=== PATIENT | female | born 1995 | race Caucasian/White ===

== ENCOUNTER 2025-10-02 05:44 | Inpatient (IN) | payer BC, SELFPAY ==
[2025-10-02] VITALS (62 sets, daily range): BP systolic 75–141; BP diastolic 38–91; PULSE 56–188; RESP 16–18; TEMP 36.3–37.1; O2SAT 95–100; BMI 31.8
--- OUTSIDE RECORDS SUMMARY | 2025-10-02 05:56 | XMS_ITS | Continuity of Care Document ---
Author Organization [facility] [place] Address [address] [place] [address] Assessment No assessment recorded. Plan of Treatment Reminders Order Date Submit Date Provider Last Modified By Organization Details Last Modified Time Details Appointments OB ROUTINE 2024 08:45A Regina VAUGHN MD Not available Not available Not available Lab None recorded . Referral None recorded . Procedures None recorded . Surgeries None recorded . Imaging None recorded . Medication Orders None recorded . Patient TargetsNo targets recorded. Patient InstructionsNo instructions recorded. Reason for Referral None Reported. Results Created Date Observation Date Name Description Value Unit Range Abnormal Flag Note LastModifiedBy Organization Detail LastModifiedTime 04/04/20 25 04/04/2025 [UNIT Y] ANEUP LOIDY NIPT fraction 10.6% normal Not Available [facility] [address], [place], [address], 04/04/2025 15:29:25 04/04/20 25 04/04/2025 [UNIT Y] ANEUP LOIDY NIPT 22Q11.2 microdeletio n LOW RISK <1 in 10,000 normal Not Available [facility] [address], [place], [address], 04/04/2025 15:29:25 04/04/20 25 04/04/2025 [UNIT Y] ANEUP LOIDY NIPT sex chromosome aneuploidy NOT DETECT ED normal Not Available [facility] [address], [place], [address], 04/04/2025 15:29:25 04/04/20 25 04/04/2025 [UNIT Y] ANEUP LOIDY NIPT monosomy X LOW RISK <1 in 10,000 normal Not Available [facility] [address], [place], [address], 04/04/2025 15:29:25 04/04/20 25 04/04/2025 [UNIT Y] ANEUP LOIDY NIPT trisomy 13 LOW RISK <1 in 10,000 normal Not Available [facility] [address], [place], [address], 04/04/2025 15:29:25 04/04/20 25 04/04/2025 [UNIT Y] ANEUP LOIDY NIPT trisomy 18 LOW RISK <1 in 10,000 normal Not Available [facility] [address], [place], [address], 04/04/2025 15:29:25 04/04/20 25 04/04/2025 [UNIT Y] ANEUP LOIDY NIPT trisomy 21 LOW RISK <1 in 10,000 normal Not Available [facility] [address], [place], [address], 04/04/2025 15:29:25 04/04/20 25 04/04/2025 [UNIT Y] ANEUP LOIDY NIPT sex MALE normal Not Available [facility] [address], [place], [address], 04/04/2025 15:29:25 04/04/20 25 04/04/2025 [UNIT Y] ANEUP LOIDY NIPT gestation SINGLE TON normal Not Available [facility] [address], [place], [address], 04/04/2025 15:29:25 04/04/20 25 04/04/2025 [UNIT Y] ANEUP LOIDY NIPT for detailed report, see pdf See PDF normal Not Available [facility] [address], [place], [address], 04/04/2025 15:29:25 04/11/20 25 04/11/2025 [UNIT Y] THOMAS WHITTINGTON Kathrine sickle cell disease/beta -thalassemia /hemoglobino pathies carrier screen NEGATI VE normal Not Available [facility] [address], [place], [address], 04/11/2025 12:08:11 04/11/20 25 04/11/2025 [UNIT Y] THOMAS WHITTINGTON Kathrine alpha-thalas semia carrier screen NEGATI VE normal Not Available [facility] [address], [place], [address], 04/11/2025 12:08:11 04/11/20 25 04/11/2025 [UNIT Y] THOMAS HWITTINGTON Kathrine cystic fibrosis carrier screen NEGATI VE normal Not Available [facility] [address], [place], [address], 04/11/2025 12:08:11 04/11/20 25 04/11/2025 [UNIT Y] THOMAS WHITTINGTON Kathrine spinal muscular atrophy carrier screen NEGATI VE 2 SMN1 copies , SNP not presen t normal Not Available [facility] [address], [place], [address], 04/11/2025 12:08:11 04/11/20 25 04/11/2025 [UNIT Y] THOMAS WHITTINGTON Kathrine for detailed report, see pdf See PDF normal Not Available [facility] [address], [place], [address], 04/11/2025 12:08:11 03/30/20 25 03/30/2025 CULTU RE: URINE result report SEE RESULT S BELOW Test: Cultu re: Urine Speci men Sourc e: Urine Voide d Speci men Type: Urine Speci men Date: 2024 1419 Resul t Date: 2024 2343 Resul t Statu s: Final resul t Abnor mal: No Resul ting Lab: [facility] [address] [facility] [address] Tel: CULTU RE ----- ----- ----- --- Organ ism(s ) consi stent with uroge nital or skin deja . Repea t cultu re if sympt oms indic ate. Not Available [facility] (Lab) [address] [facility], [place], [address], 04/01/2025 00:46:12 03/30/20 25 03/30/2025 CBC W/DIF F WBC 8.0 10'3/ uL 3.5-10 .5 Not Available [facility] (Lab) [address] [facility], [place], [address], 04/02/2025 16:43:21 03/30/20 25 03/30/2025 CBC W/DIF F RBC 4.19 10'6/ uL (based on docume nted legal sex) 3.80-5 .20 Not Available [facility] (Lab) [address] [facility], [place], [address], 04/02/2025 16:43:21 03/30/20 25 03/30/2025 CBC W/DIF F HGB 13.3 g/dL (based on docume nted legal sex) 11.6-1 5.4 Not Available [facility] (Lab) [address] [place], [address], 04/02/2025 16:43:21 03/30/20 25 03/30/2025 CBC W/DIF F HCT 39.6 % (based on docume nted legal sex) 34.0-4 5.0 Not Available [facility] (Lab) [address] [place], [address], 04/02/2025 16:43:21 03/30/20 25 03/30/2025 CBC W/DIF F MCV 94.5 fL 80.0-9 9.0 Not Available [facility] (Lab) [address] [place], [address], 04/02/2025 16:43:21 03/30/20 25 03/30/2025 CBC W/DIF F MCH 31.7 pg 27.0-3 4.0 Not Available [facility] (Lab) [address] [facility], [place], [address], 04/02/2025 16:43:21 03/30/20 25 03/30/2025 CBC W/DIF F MCHC 33.6 g/dL 32.0-3 5.5 Not Available [facility] (Lab) [address] [facility], [place], [address], 04/02/2025 16:43:21 03/30/20 25 03/30/2025 CBC W/DIF F RDW 12.7 % 11.0-1 5.0 Not Available [facility] (Lab) [address] [facility], [place], [address], 04/02/2025 16:43:21 03/30/20 25 03/30/2025 CBC W/DIF F plt 307 10'3/ uL 150-40 0 Not Available [facility] (Lab) [address] [facility], [place], [address], 04/02/2025 16:43:21 03/30/20 25 03/30/2025 CBC W/DIF F MPV 10.2 fL 8.8-12 .1 Not Available [facility] (Lab) [address] [facility], [place], [address], 04/02/2025 16:43:21 03/30/20 25 03/30/2025 CBC W/DIF F NRBC's 0.0 % 0.0 Not Available [facility] (Lab) [address] [facility], [place], [address], 04/02/2025 16:43:21 03/30/20 25 03/30/2025 CBC W/DIF F absolute NRBCs 0.0 10'3/ uL no refere nce range establ ished Not Available [facility] (Lab) [address] [facility], [place], [address], 04/02/2025 16:43:21 03/30/20 25 03/30/2025 CBC W/DIF F neutrophils 73.0 % 34.0-7 3.0 Not Available [facility] (Lab) [address] [facility], [place], [address], 04/02/2025 16:43:21 03/30/20 25 03/30/2025 CBC W/DIF F lymphocytes 20.3 % 15.0-5 0.0 Not Available [facility] (Lab) [address] [facility], [place], [address], 04/02/2025 16:43:21 03/30/20 25 03/30/2025 CBC W/DIF F monocytes 5.5 % 1.0-15 .0 Not Available [facility] (Lab) [address] [facility], [place], [address], 04/02/2025 16:43:21 03/30/20 25 03/30/2025 CBC W/DIF F eosinophils 0.6 % 0.0-8. 0 Not Available [facility] (Lab) [address] [place], [address], 04/02/2025 16:43:21 03/30/20 25 03/30/2025 CBC W/DIF F basophils 0.3 % 0.0-2. 0 Not Available [facility] (Lab) [address] [facility], [place], [address], 04/02/2025 16:43:21 03/30/20 25 03/30/2025 CBC W/DIF F immature granulocytes 0.3 % no define d refere nce range Immat ure Granu locyt es (IG) repre sents autom ated enume ratio n of Metam yeloc ytes, Myelo cytes and Promy elocy manuela when IG is < 5%. Blast s are not inclu ded in IG and repor luis separ ately if prese nt. Not Available [facility] (Lab) [address] [facility], [place], [address], 04/02/2025 16:43:21 03/30/20 25 03/30/2025 CBC W/DIF F absolute neutrophils 5.8 10'3/ uL 1.5-8. 0 Not Available [facility] (Lab) [address] [facility], [place], [address], 04/02/2025 16:43:21 03/30/20 25 03/30/2025 CBC W/DIF F absolute lymphocytes 1.6 10'3/ uL 1.0-4. 0 Not Available [facility] (Lab) [address] [facility], [place], [address], 04/02/2025 16:43:21 03/30/20 25 03/30/2025 CBC W/DIF F absolute monocytes 0.4 10'3/ uL 0.2-1. 0 Not Available [facility] (Lab) [address] [facility], [place], [address], 04/02/2025 16:43:21 03/30/20 25 03/30/2025 CBC W/DIF F absolute eosinophils 0.1 10'3/ uL 0.0-0. 6 Not Available [facility] (Lab) [address] [facility], [place], [address], 04/02/2025 16:43:21 03/30/20 25 03/30/2025 CBC W/DIF F absolute basophils 0.0 10'3/ uL 0.0-0. 3 Not Available [facility] (Lab) [address] [facility], [place], [address], 04/02/2025 16:43:21 03/30/20 25 03/30/2025 CBC W/DIF F absolute immature granulocytes 0.0 10'3/ uL 0.00-0 .10 : Not Hispa juni or Latin o Refer ence range s for nonbi nary/ inter sex or unspe cifie d gende r patie nts have not been estab lishe d. Plemerlin e refer to the follo wing table for range s estab lishe d for cisge nder patie nts and evalu ate in the clini mohit yong xt of the indiv idual patie nt: https ://goldie spears book. nm.or g/gen derx Not Available [facility] (Lab) [address], [place], [address], 04/02/2025 16:43:21 03/30/2003/30/2025 HEPAT ITIS C ANTIB CLAUDETTE SCREE N, REFLE X TO CONFI RMATI ON hepatitis C antibody Non-re active non-re active Antib odies to HCV Not Detec luis, does not exclu de the possi bilit y of expos ure to HCV. : Not Hispa juni or Latin o Not Available [facility] (Lab) [address], [place], [address], 04/02/2025 16:43:21 03/30/2003/30/2025 HEPAT ITIS B SURFA CE ANTIG EN hepatitis B surface antigen Non-re active non-re active This assay was perfo rmed using [employer] ratio n reage nts and test kits. Value s obtai vin with other assay metho ds or kits canno t be used inter hector eably . : Not Hispa juni or Latin o Not Available [facility] (Lab) [address], [place], [address], 04/02/2025 16:43:22 03/30/2003/30/2025 HIV 1/2 ANTIG EN/AN TIBOD Y, REFLE X CONFI RMATI ON HIV antigen/anti body Nonrea ctive nonrea ctive : Not Hispa juni or Latin o HIV-1 antig en and HIV-1 /HIV- 2 antib odies were not detec luis. No labor atory evide nce of HIV infec tion. Not Available [facility] (Lab) [address], [place], [address], 04/02/2025 16:43:22 03/30/20 25 03/30/2025 TYPE/ RH/SC REEN ABO/Rh type A POS Not Available [facility] (Lab) [address] [facility], [place], [address], 04/02/2025 16:43:23 03/30/20 25 03/30/2025 TYPE/ RH/SC REEN antibody screen NEG Not Available [facility] (Lab) [address] [facility], [place], [address], 04/02/2025 16:43:23 03/30/20 25 03/30/2025 TYPE/ RH/SC REEN exp date 2024 23:59 Not Available [facility] (Lab) [address] [facility], [place], [address], 04/02/2025 16:43:23 03/30/20 25 03/30/2025 RUBEL LA IGG ANTIB CLAUDETTE, QUANT rubella antibodies, IgG Reacti ve reacti ve Not Available [facility] (Lab) [address] [facility], [place], [address], 04/02/2025 16:43:23 03/30/20 25 03/30/2025 RUBEL LA IGG ANTIB CLAUDETTE, QUANT rubella antibodies, IgG quant 20.6 IU/mL >=10 : Not Hispa juni or Latin o Non-r eacti ve (Non- Immun e) <10 IU/mL React luli (Immu ne) > or = 10 IU/mL Not Available [facility] (Lab) [address] [facility], [place], [address], 04/02/2025 16:43:23 03/30/20 25 03/30/2025 HEMOG LOBIN A1C hemoglobin A1C 5.0 % 4.0-5. 6 : Not Hispa juni or Latin o The Ameri can Diabe manuela Assoc iatio n recom mends that a prima ry goal of amie rollins be a HBA1C of < 7% and that physi cians adrian d reeva luate the treat ment regim en in patie nts with HBA1C value s consi stent ly > 8%. <5.7% Priyanka l 5.7 - 6.4% Incre ased risk for diabe manuela >=6.5 % Diagn ostic of diabe manuela <7.0% Goal of thera py >8.0% Actio n sugge sted Not Available [facility] (Lab) [address] [facility], [place], [address], 04/02/2025 16:43:23 03/30/20 25 03/30/2025 RPR SCREE N, REFLE X TITER /CONF IRMAT ION RPR qualitative Nonrea ctive nonrea ctive : Not Hispa juni or Latin o Not Available [facility] (Lab) [address] [facility], [place], [address], 04/02/2025 16:43:24 03/30/20 25 03/30/2025 LEAD, BLOOD (ADUL T/PED IATRI C) lead, whole blood <1.0 mcg/d L <3.5 See Note 1 Héctor sis was perfo rmed by Stephani Burrows ed Plasm a Mass Spect romet ry (ICPM S) Note 1 This test was devel oped and its héctor tical perfo rmanc e rubens cteri stics have been deter mined by [facility]. It has not been clear ed or appro ahmet by the FDA. This assay has been valid ated pursu ant to the CLIA regul ation s and is used for clini mohti purpo ses. : Not Hispa juni or Latin o Perfo rming Organ izati on Infor matedmund n: Site ID: CB Name: [facility] [place] Addre ss: [address] [place] [address] Direc tor: Carlie Rivera s Not Available [facility] (Lab) [address] [facility], [place], [address], 04/02/2025 16:43:24 07/21/20 25 07/21/2025 HEMAT OCRIT (HCT) HCT 39.0 % (based on docume nted legal sex) 34.0-4 5.0 Not Available [facility] (Lab) [address] [facility], [place], [address], 07/22/2025 13:19:40 07/21/20 25 07/21/2025 HEMOG LOBIN (HGB) HGB 13.1 g/dL (based on docume nted legal sex) 11.6-1 5.4 Not Available [facility] (Lab) [address] [facility], [place], [address], 07/22/2025 13:19:40 07/21/20 25 07/21/2025 GTT - GESTA LAUREN L NELSY N, ACOG OB glucose, 1 hour screen 122 mg/dL 70-135 Not Available [facility] (Lab) [address] [facility], [place], [address], 07/22/2025 13:19:40 07/21/20 25 07/21/2025 HIV 1/2 ANTIG EN/AN TIBOD Y, REFLE X CONFI RMATI ON HIV antigen/anti body Nonrea ctive nonrea ctive HIV-1 antig en and HIV-1 /HIV- 2 antib odies were not detec luis. No labor atory evide nce of HIV infec tion. Not Available [facility] (Lab) [address] [facility], [place], [address], 07/22/2025 13:19:41 07/21/20 25 07/21/2025 RPR SCREE N, REFLE X TITER /CONF IRMAT ION RPR qualitative Nonrea ctive nonrea ctive Not Available [facility] (Lab) [address] [facility], [place], [address], 07/22/2025 13:19:41 03/30/20 25 03/30/2025 US, obste tric, nucha l trans lucen cy No observ ation record ed. [email or web address] [address], [place], [address], 03/31/2025 10:09:17 03/30/20 25 03/30/2025 US, obste tric, nucha l trans lucen cy No observ ation record ed. [email or web address] [place] [address], [place], [address], 03/30/2025 18:43:35 05/27/20 25 05/27/2025 US, obste tric, 2nd or 3rd trime ster No observ ation record ed. [facility] [address], [place], [address], 05/27/2025 13:35:00 05/27/20 25 05/27/2025 US, obste tric, 2nd or 3rd trime ster No observ ation record ed. [email or web address] [address], [place], [address], 05/27/2025 16:07:50 06/24/20 25 06/24/2025 US, obste tric, follo w-up No observ ation record ed. [facility] [address], [place], [address], 06/24/2025 17:08:43 06/24/20 25 06/24/2025 US, obste tric, follo w-up No observ ation record ed. [email or web address] [address], [place], [address], 06/24/2025 17:02:28 07/21/20 25 07/21/2025 US, obste tric, follo w-up No observ ation record ed. [facility] [address], [place], [address], 07/21/2025 15:22:55 07/21/20 25 07/21/2025 US, obste tric, follo w-up No observ ation record ed. [email or web address] [address], [place], [address], 07/22/2025 01:37:08 08/19/20 25 08/19/2025 US, obste tric, follo w-up No observ ation record ed. [email or web address] [place] [address], [place], [address], 08/19/2025 17:07:11 08/19/20 25 08/19/2025 US, obste tric, follo w-up No observ ation record ed. AGNIESZKA Sewell [address], [place], [address], 08/22/2025 10:39:24 09/14/20 25 09/14/2025 US, obste tric, follo w-up No observ ation record ed. [email or web address] [place] [address], [place], [address], 09/14/2025 17:58:23 09/14/20 25 09/14/2025 US, obste tric, follo w-up No observ ation record ed. AGNIESZKA Sewell [address], [place], [address], 09/18/2025 09:36:54 Result Notes None recorded. Problems Name Problem SNOMED Code Status Onset Date Resolution Date Notes Provider Name and Address Organization Details Recorded Time 37981481 Active 2024 Sindy levin, [facility] 5 12:54:51 Abnormal placenta affecting management of mother 61747192 Active 2024 serial growth US RICO VAUGHN MD [address], [place], [address], [facility] 5 11:08:27 Problem Notes None recorded. Procedures Surgical History Date Name Laterality Status Provider Name and Address Organization Details Recorded Time 04/16/202 5 Date of Last Pap Smear completed Sindy Sanchez [facility] 03/03/2025 16:18:09 9 Breast reduction completed Kelley Doyle [facility] 01/26/2025 14:37:39 Imaging Results None recorded. Procedure Notes None recorded. Medical Equipment None Reported. Allergies No known drug allergies Medications Name Sig Start Date Stop Date Status Note LastModified by Organization Details LastModified Time multivitamin capsule active Not Available Not Available Not Available Fish Oil active Not Available Not Avai lable Not Available Pre-Lisette Multivitamins/ Minerals active Not Available Not Available Not Available Vitals Date Recorded Body height Body mass index (BMI) Body weight Systolic And Diastolic Provider Name and Address Organization Details Last Updated DateTime 09/02/2025 165.1 cm 31.6 kg/m2 01292.55 g 113/71 mm[Hg] Mehreen Verdugo [facility] 09/02/2025 14:41:01 Social History Question Answer Notes LastModified by Organizat ion Details LastModified Time Tobacco Smoking Status Never Smoker Kelley Doyle [facility] 01/26/2025 14:37:11 Do You Have An Advance Directive? No [email or web address] Information n ot available 01/26/2025 How Many Years Have You Consumed Alcohol? 5 [email or web address] Information not available 01/26/2025 Are You Blind Or Do You Have Difficulty Seeing? No [email or web address] Information n ot available 01/26/2025 What Is Your Level Of Caffeine Consumption? Moderate [email or web address] Information not available 01/26/2025 In The 14 Days Before Symptom Onset, Have You Had Close Contact With A Laboratory-confirm ed COVID-19 While That Case Was Ill? No [email or web address] Information n ot available 01/26/2025 In The 14 Days Before Symptom Onset, Have You Had Close Contact With A Person Who Is Under Investigation For COVID-19 While That Person Was Ill? No [email or web address] Information not available 01/26/2025 Have You Been To An Area Known To Be High Risk For COVID-19? No [email or web address] Information not available 01/26/2025 Are You Deaf Or Do You Have Serious Difficulty Hearing? No [email or web address] Information not available 01/26/2025 What Type Of Diet Are You Following? REGULAR [email or web address] Information n ot available 01/26/2025 What Is The Highest Grade Or Level Of School You Have Completed Or The Highest Degree You Have Received? [id number] [email or web address] Information not available 01/26/2025 Are There Any Guns Present In Your Home? Yes [email or web address] Information not available 01/26/2025 Have You Ever Been Counseled For Unhealthy Alcohol Use? No Information not available 05/27/2025 Do You Use Protection During Sex? No [email or web address] Information not available 01/26/2025 Do You Use Your Seat Belt Or Car Seat Routinely? Yes [email or web address] Information not available 01/26/2025 Are You Sexually Active? Yes [email or web address] Information not available 01/26/2025 Do You Have Smoke And Carbon Monoxide Detectors In Your Home? Yes [email or web address] Information not available 01/26/2025 How Much Tobacco Do You Smoke? No [email or web address] Information not available 01/26/2025 Do You Use Sunscreen Routinely? Yes [email or web address] Information not available 01/26/2025 Has Tobacco Cessation Counseling Been Provided? No [email or web address] Information not available 05/27/2025 Have You Used IV Drugs? No [email or web address] Information not available 01/26/2025 Do You Have Difficulty Walking Or Climbing Stairs? No [email or web address] Information not available 01/26/2025 Sex: Unknown Functional Status Question Answer Note LastModified by Organizat ion Details LastModified Time Do you use any illicit or recreational drugs? No [email or web address] Information not available 01/26/2025 What is your level of alcohol consumption? Occasional Information not available 01/26/2025 Are you currently employed? Yes [email or web address] Information not available 01/26/2025 Are you able to walk independently without assistance or assistive devices? YESWOREST [email or web address] Information not available 01/26/2025 Are you able to care for yourself independently? 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 No [email or web address] Information not available 01/26/2025 What is your exercise level? Moderate [email or web address] Information not available 01/26/2025 Mental Status Question Answer Note LastModified by Organization D etails LastModified Time Do you feel stressed (tense, restless, nervous, or anxious, or unable to sleep at night)? [id number] [email or web address] Information not available 01/26/2025 Family History Relationship Description Onset Age of this Age Resolved Age Notes LastModified by Organization Details LastModified Time Mother Malignant neoplasm of breast 41 Double mastec marium - stage 1 [email or web address] Not available 07/21/2025 09:35:24 Mother Malignant neoplasm of breast Not available 2024 10:54:50 Medical History Condition Response Allergies (Food, seasonal, environmental ) N Other N Drug/Latex Allergies/Reactions N Blood Transfusion N Breast Cancer N Dermatologic Disorders N Lung Disease N Defects or Inherited Disease N Breast Problem N Gestational Diabetes N Hematologic disorders N Anesthesia Complications N History of STI N Deep Vein Thrombosis N Polycystic ovary syndrome N Anxiety Disorder N Autoimmune disease N Arthritis N Polyps N Infertility N Acid Reflux (GERD) N History of abnormal pap N Cancer N Varicosities N Stroke N Neurologic/Epilepsy N Endometriosis N High Cholesterol N Fibromyalgia N Headaches N Kidney Disease N Heart Problems N Thyroid Problems N Kidney or Bladder Problems N GI Problems N Eating Disorder N Anemia N Art (IVF or FET) N Psychiatric Illness N Ovarian Cancer N Diabetes N Pulmonary (TB, Asthma) N Hepatitis/Liver Disease N No Past Medical History N Eczema N Urinary Tract Infection N Abuse/Domestic Violence N Asthma N Trauma/Violence N Depression/ depression N Heart Disease N Pre-Eclampsia N Hypertension N Osteoporosis N Thrombophilias N Gynecological History Statement/Question Response Flow Moderate Date of LMP 01/05/2025 On BCP's at Conception? N N Was last menstrual period normal Y STIs/STDs N HPV Vaccine Y Duration of Flow (days) 5 Current Control Method Age at First Child 27 Are cycles usually normal Y Frequency of Cycle (Q days) 24 Sexually Active? Y None Menses Monthly Y Age of first menstrual cycle 17 Date of Last Pap Smear 01/26/2025 Sexual Problems? N Desired Control Method None LMP Definite N Obstetrics History GPAL:G 2 P 1 0 0 1 Type Value Full Term 1 Living 1 Total 2 Past Encounters Encounter ID Performer Location Encounter Start Date Encounter Closed Date Diagnosis/Indication Diagnosis SNOMED-CT Code Diagnosis ICD10 Code Diagnosis IMO Codes Diagnosis Note [id number] Bernice Errol Funez CNM [facility] [address],[place] [address] 08/05/2025 14:24:29 08/05/2025 14:52:26 Gestation period, 30 weeks [id number] Z3A.30 [id number] RICO VAUGHN MD [facility] [address],[place] [address] 08/19/2025 15:47:49 08/19/2025 16:29:31 Anomaly of placenta [id number] O43.103 Z3A.32 [id number] RICO VAUGHN MD [facility] [address],[place] [address] 08/19/2025 15:48:09 08/19/2025 16:58:48 Abnormal placenta affecting management of mother [id number] O43.199 [id number] - serial growth Gestation period, 32 weeks 0826952 Z3A.32 0587464 - continue PNV [id number] RICO VAUGHN MD [facility] [address],[place] [address] 09/02/2025 14:23:27 09/02/2025 14:56:42 Abnormal placenta affecting management of mother [id number] O43.199 [id number] - serial growth Gestation period, 34 weeks [id number] Z3A.34 [id number] Health Concerns Section Related Observation LastModified by Organization Detai ls LastModified Time None Recorded Concern Status LastModified by Organization Details LastModified Time None Recorded Payers Encounter Date Sequence Insurance Name Policy Number Policy Serrato Covered Member ID Serrato Member ID Guarantor Name 09/02/2025 1 [facility] ([facility] [id number] Eric Tolbert [id number] Renata Tolbert Notes Date Note Type Note Provider Name and Address Organization Details Recorded Time 09/02/2025 text/html Generic HPI TemplateReported by Patient RICO VAUGHN MD [address], [place], [address], [facility] 09/02/2025 14:56:10 OBGyn Episode Ob Episode Information Episode Created Date Number of Fetuses Patient Bloodtype Patient rh Status Prepregnancy Weight lbs Domestic Partner Domestic Partner Phone Father Name Automatic Glove Turner And Former Status 03/30/20 25 1 A Positive 147 Eric OPEN Fetus Data First Name Last Name Admitted to NICU Weight (g) Sex Living Outcome Pediatric Complications Fetus ID Race Codes Race Delivery Type [id number] Problems Problem Notes Problem Name Start Date End Date Resolution Snomed Code Not e Abnormal placenta affecting management of mother 05/27/2025 [id number] serial growth U Enio Calculation Initial Enio Date Initial Exam Date Initial Exam Provider Initial Ultrasound Date Last Menstrual Period Date Ultra Sound Weeks Gestation 10/12/2025 03/30/2025 03/03/2025 01/05/2025 8 Eighteen To Twenty Week Enio Update Ultra Sound Date Fundal Height At Umbil Quickening Date Ultra Sound Latest Weeks Gestation Final Enio Confirmed By Final Enio Confirmed Date Final Enio Date Ultra Sound Latest Days Gestation 0 [email or web address] 03/30/2025 10/12/20 25 0 Pre-sonia Flowsheet Flowsheet Date 03/30/2025 Suresh Score Blood Edema Fundus Height Fundus Units Glucose Ketones Leukocytes Nitrite Labor Signs Protein Cervic Dilation Cervic Effacement Cervic Station Type Weight in lbs Pre/Post Dialysis Refused Weight 154.75283421672 BP Diastolic BP Location Tested BP Systolic BP Type 74 L arm 107 sitting Fetus Heart Rate Present A Present Fetus Movement A No Comments Patient presents to [facility] care. Hx of uncomplicated . otherwise uncomplicated. No nausea or cramping. NT/NB wnl today, desires NIPT. Will draw today with new OB labs. RTC 4 weeks for routine care. Flowsheet Date 04/27/2025 Suresh Score Blood Edema Fundus Height Fundus Units Glucose Ketones Leukocytes Nitrite Labor Signs Protein Cervic Dilation Cervic Effacement Cervic Station Type Weight in lbs Pre/Post Dialysis Refused Weight 160.233239709173 BP Diastolic BP Location Tested BP Systolic BP Type 72 L arm 108 sitting Fetus Heart Rate Present A 145 Fetus Movement A No Comments Doing well, no cramping or b leeding. Feeling some flutters. LR male NIPT! All other new OB labs wnl. Discussed anatomy US for next visit. RTC 4 weeks. Flowsheet Date 05/27/2025 Suresh Score Blood Edema Fundus Height Fundus Units Glucose Ketones Leukocytes Nitrite Labor Signs Protein Cervic Dilation Cervic Effacement Cervic Station Type Weight in lbs Pre/Post Dialysis Refused BP Diastolic BP Location Tested BP Systolic BP Type Fetus Heart Rate Present Fetus Movement Comments Flowsheet Date 05/27/2025 Suresh Score Blood Edema Fundus Height Fundus Units Glucose Ketones Leukocytes Nitrite Labor Signs Protein Cervic Dilation Cervic Effacement Cervic Station Type Weight in lbs Pre/Post Dialysis Refused 165.126636636057 BP Diastolic BP Location Tested BP Systolic BP Type 70 L arm 109 sitting Fetus Heart Rate Present A 158 Fetus Movement A Yes Comments Starting to feel movem ents. No cramping or bleeding. Anatomy complete and normal, EFW 48%. Small CP cysts on left, discussed with patient. Marginal cord insertion, plan for serial growth US. Going to [place] tomorrow! RTC 4 weeks. Flowsheet Date 06/24/2025 Suresh Score Blood Edema Fundus Height Fundus Units Glucose Ketones Leukocytes Nitrite Labor Signs Protein Cervic Dilation Cervic Effacement Cervic Station Type Weight in lbs Pre/Post Dialysis Refused BP Diastolic BP Location Tested BP Systolic BP Type Fetus Heart Rate Present Fetus Movement Comments Flowsheet Date 06/24/2025 Suresh Score Blood Edema Fundus Height Fundus Units Glucose Ketones Leukocytes Nitrite Labor Signs Protein Cervic Dilation Cervic Effacement Cervic Station Type Weight in lbs Pre/Post Dialysis Refused 174.76874269462 BP Diastolic BP Location Tested BP Systolic BP Type 64 L arm 97 sitting Fetus Heart Rate Present A 157 Fetus Movement A Yes Comments Good movement. No cram ping or bleeding. EFW 32%, normal fluid. Discussed GCT and labs for next visit. RTC 4 weeks. Flowsheet Date 07/21/2025 Suresh Score Blood Edema Fundus Height Fundus Units Glucose Ketones Leukocytes Nitrite Labor Signs Protein Cervic Dilation Cervic Effacement Cervic Station Type Weight in lbs Pre/Post Dialysis Refused BP Diastolic BP Location Tested BP Systolic BP Type Fetus Heart Rate Present Fetus Movement Comments Flowsheet Date 07/21/2025 Suresh Score Blood Edema Fundus Height Fundus Units Glucose Ketones Leukocytes Nitrite Labor Signs Protein Cervic Dilation Cervic Effacement Cervic Station Type Weight in lbs Pre/Post Dialysis Refused 182.085601793343 BP Diastolic BP Location Tested BP Systolic BP Type 62 96 Fetus Heart Rate Present A Present Fetus Movement A Yes Comments Doign well, good movem ent. No cramping or bleeding. Had soem pelvic pain after working out, has improved since she cut back on exercise. GCT and labs today. EFW 51%, vertex, STEVEN wnl. Continue serial growth US. RTC 2 weeks. Flowsheet Date 08/05/2025 Suresh Score Blood Edema Fundus Height Fundus Units Glucose Ketones Leukocytes Nitrite Labor Signs Protein Cervic Dilation Cervic Effacement Cervic Station Type Weight in lbs Pre/Post Dialysis Refused 186.727833585452 BP Diastolic BP Location Tested BP Systolic BP Type 66 L arm 112 sitting Fetus Heart Rate Present Fetus Movement A Yes Comments reviwed vaccines, preadmissi on aftner next appt, +FM precautions and education f/u 2 weeks Flowsheet Date 08/19/2025 Suresh Score Blood Edema Fundus Height Fundus Units Glucose Ketones Leukocytes Nitrite Labor Signs Protein Cervic Dilation Cervic Effacement Cervic Station Type Weight in lbs Pre/Post Dialysis Refused BP Diastolic BP Location Tested BP Systolic BP Type Fetus Heart Rate Present Fetus Movement Comments Flowsheet Date 08/19/2025 Suresh Score Blood Edema Fundus Height Fundus Units Glucose Ketones Leukocytes Nitrite Labor Signs Protein Cervic Dilation Cervic Effacement Cervic Station Type Weight in lbs Pre/Post Dialysis Refused Weight 187.497905787600 BP Diastolic BP Location Tested BP Systolic BP Type 69 L arm 108 sitting Fetus Heart Rate Present A Present Fetus Movement A Yes Comments Doing well, good movem ent. No cramping or bleeding. EFW 36%, vertex. Repeat in 4 weeks for MCI. Desires spontaneous labor. RTC 2 weeks. Flowsheet Date 09/02/2025 Suresh Score Blood Edema Fundus Height Fundus Units Glucose Ketones Leukocytes Nitrite Labor Signs Protein Cervic Dilation Cervic Effacement Cervic Station Type Weight in lbs Pre/Post Dialysis Refused Weight 190.679441213939 BP Diastolic BP Location Tested BP Systolic BP Type 71 L arm 113 sitting Fetus Heart Rate Present A 140 Fetus Movement A Yes Comments Doing well, baby active. [place] eduled preadmission. No ctx, LOF, VB. Growth US next visit. RTC 2 weeks. Flowsheet Date 09/14/2025 Suresh Score Blood Edema Fundus Height Fundus Units Glucose Ketones Leukocytes Nitrite Labor Signs Protein Cervic Dilation Cervic Effacement Cervic Station Type Weight in lbs Pre/Post Dialysis Refused BP Diastolic BP Location Tested BP Systolic BP Type Fetus Heart Rate Present Fetus Movement Comments Flowsheet Date 09/14/2025 Suresh Score Blood Edema Fundus Height Fundus Units Glucose Ketones Leukocytes Nitrite Labor Signs Protein Cervic Dilation Cervic Effacement Cervic Station Type Weight in lbs Pre/Post Dialysis Refused 194.399628726849 BP Diastolic BP Location Tested BP Systolic BP Type 77 L arm 117 sitting Fetus Heart Rate Present A Present Fetus Movement A Yes Comments Good movement. No cram ping or bleeding. EFW 49%. Vertex. Possible RLQ synechiae, baby moves freely. GBS collected today. RTC 1 week. Flowsheet Date 09/20/2025 Suresh Score Blood Edema Fundus Height Fundus Units Glucose Ketones Leukocytes Nitrite Labor Signs Protein Cervic Dilation Cervic Effacement Cervic Station Type Weight in lbs Pre/Post Dialysis Refused Weight 196.840532080977 BP Diastolic BP Location Tested BP Systolic BP Type 74 L arm 109 sitting Fetus Heart Rate Present A 135 Fetus Movement A Yes Comments Baby active. No regular cont ractions, LOF, or VB. GBS neg. Discussed membrane sweep for next week. RTC 1 week. Flowsheet Date 09/30/2025 Suresh Score Blood Edema Fundus Height Fundus Units Glucose Ketones Leukocytes Nitrite Labor Signs Protein Cervic Dilation Cervic Effacement Cervic Station 3cm 70% -1 Type Weight in lbs Pre/Post Dialysis Refused 196.802569099327 BP Diastolic BP Location Tested BP Systolic BP Type 71 L arm 105 sitting Fetus Heart Rate Present A 140 Present Fetus Movement A Yes Comments +FM doing well, declines IOL , membrane sweep today precautions and education f/u one week Menstrual History Last Menstrual Date Menses Monthly On Bcp Conception Prior Menses Frequency Hcg Plus Date Menarche Onset Age 0301/05/2025 true 22 Delivery Information Delivery Date Delivery Type Labor Anesthesia Weeks Gestation Incision Type Labor Labor Length Hrs Delivered By Post Complications Tubal Sterilization Discharge Date Comments Discharge Information Feeding Method Contraceptive Method Maternal HG B and HCT Levels
--- OUTSIDE RECORDS SUMMARY | 2025-10-02 05:56 | XMS_ITS | Continuity of Care Document ---
Author Organization [facility] [place] Address [address] [place] [address] Assessment No assessment recorded. Plan of Treatment [...] [facility] [address], [place], [address], 04/04/2025 15:29:25 04/04/20 25 04/04/2025 [UNIT Y] ANEUP LOIDY NIPT 22Q11.2 microdeletio n LOW RISK <1 in 10,000 normal Not Available [facility] [address], [place], [address], 04/04/2025 15:29:25 04/04/20 25 04/04/2025 [UNIT Y] ANEUP LOIDY NIPT sex chromosome aneuploidy NOT DETECT ED normal Not Available [facility] [address], [place], [address], 04/04/2025 15:29:25 04/04/20 25 04/04/2025 [UNIT Y] ANEUP LOIDY NIPT monosomy X LOW RISK <1 in 10,000 normal Not Available [facility] [address], [place], [address], 04/04/2025 15:29:25 04/04/20 25 04/04/2025 [UNIT Y] ANEUP LOIDY NIPT trisomy 13 LOW RISK <1 in 10,000 normal Not Available [facility] [address], [place], [address], 04/04/2025 15:29:25 04/04/20 25 04/04/2025 [UNIT Y] ANEUP LOIDY NIPT trisomy 18 LOW RISK <1 in 10,000 normal Not Available [facility] [address], [place], [address], 04/04/2025 15:29:25 04/04/20 25 04/04/2025 [UNIT Y] ANEUP LOIDY NIPT trisomy 21 LOW RISK <1 in 10,000 normal Not Available [facility] [address], [place], [address], 04/04/2025 15:29:25 04/04/20 25 04/04/2025 [UNIT Y] ANEUP LOIDY NIPT sex MALE normal Not Available [facility] [address], [place], [address], 04/04/2025 15:29:25 04/04/20 25 04/04/2025 [UNIT Y] ANEUP LOIDY NIPT gestation SINGLE TON normal Not Available [facility] [address], [place], [address], 04/04/2025 15:29:25 04/04/20 25 04/04/2025 [UNIT Y] ANEUP LOIDY NIPT for detailed report, see pdf See PDF normal Not Available [facility] [address], [place], [address], 04/04/2025 15:29:25 04/11/20 25 04/11/2025 [UNIT Y] THOMAS WHITTINGTON Kathrine sickle cell disease/beta -thalassemia /hemoglobino pathies carrier screen NEGATI VE normal Not Available [facility] [address], [place], [address], 04/11/2025 12:08:11 04/11/20 25 04/11/2025 [UNIT Y] THOMAS WHITTINGTON Kathrine alpha-thalas semia carrier screen NEGATI VE normal Not Available [facility] [address], [place], [address], 04/11/2025 12:08:11 04/11/20 25 04/11/2025 [UNIT Y] THOMAS WHITTINGTON Kathrine cystic fibrosis carrier screen NEGATI VE normal Not Available [facility] [address], [place], [address], 04/11/2025 12:08:11 04/11/20 25 04/11/2025 [UNIT Y] THOMAS WHITTINGTON Kathrine spinal muscular atrophy carrier screen NEGATI VE 2 SMN1 copies , SNP not presen t normal Not Available [facility] [address], [place], [address], 04/11/2025 12:08:11 04/11/20 25 04/11/2025 [UNIT Y] THOMAS WHITTINGTON Kathrine for detailed report, see pdf See PDF normal Not Available [facility] [address], [place], [address], 04/11/2025 12:08:11 03/30/20 25 03/30/2025 CULTU RE: URINE result report SEE RESULT S BELOW Test: Cultu re: Urine Speci men Sourc e: Urine Voide d Speci men Type: Urine Speci men Date: 2024 1419 Resul t Date: 2024 2343 Resul t Statu s: Final resul t Abnor mal: No Resul ting Lab: [facility] [address] [facility] [address] Tel: CULTU RE ----- ----- ----- --- Organ ism(s ) consi stent with uroge nital or skin deja . Repea t cultu re if sympt oms indic ate. Not Available [facility] (Lab) [address], [place], [address], 04/01/2025 00:46:12 03/30/20 25 03/30/2025 CBC W/DIF F WBC 8.0 10'3/ uL 3.5-10 .5 Not Available [facility] (Lab) [address], [place], [address], 04/02/2025 16:43:21 03/30/20 25 03/30/2025 CBC W/DIF F RBC 4.19 10'6/ uL (based on docume nted legal sex) 3.80-5 .20 Not Available [facility] (Lab) [address], [place], [address], 04/02/2025 16:43:21 03/30/20 25 03/30/2025 CBC W/DIF F HGB 13.3 g/dL (based on docume nted legal sex) 11.6-1 5.4 Not Available [facility] (Lab) [address] [place], [address], 04/02/2025 16:43:21 03/30/20 25 03/30/2025 CBC W/DIF F HCT 39.6 % (based on docume nted legal sex) 34.0-4 5.0 Not Available [facility] (Lab) [address] [place], [address], 04/02/2025 16:43:21 03/30/20 25 03/30/2025 CBC W/DIF F MCV 94.5 fL 80.0-9 9.0 Not Available [facility] (Lab) [address] [place], [address], 04/02/2025 16:43:21 03/30/20 25 03/30/2025 CBC W/DIF F MCH 31.7 pg 27.0-3 4.0 Not Available [facility] (Lab) [address], [place], [address], 04/02/2025 16:43:21 03/30/20 25 03/30/2025 CBC W/DIF F MCHC 33.6 g/dL 32.0-3 5.5 Not Available [facility] (Lab) [address], [place], [address], 04/02/2025 16:43:21 03/30/20 25 03/30/2025 CBC W/DIF F RDW 12.7 % 11.0-1 5.0 Not Available [facility] (Lab) [address], [place], [address], 04/02/2025 16:43:21 03/30/20 25 03/30/2025 CBC W/DIF F plt 307 10'3/ uL 150-40 0 Not Available [facility] (Lab) [address], [place], [address], 04/02/2025 16:43:21 03/30/20 25 03/30/2025 CBC W/DIF F MPV 10.2 fL 8.8-12 .1 Not Available [facility] (Lab) [address], [place], [address], 04/02/2025 16:43:21 03/30/20 25 03/30/2025 CBC W/DIF F NRBC's 0.0 % 0.0 Not Available [facility] (Lab) [address], [place], [address], 04/02/2025 16:43:21 03/30/20 25 03/30/2025 CBC W/DIF F absolute NRBCs 0.0 10'3/ uL no refere nce range establ ished Not Available [facility] (Lab) [address], [place], [address], 04/02/2025 16:43:21 03/30/20 25 03/30/2025 CBC W/DIF F neutrophils 73.0 % 34.0-7 3.0 Not Available [facility] (Lab) [address], [place], [address], 04/02/2025 16:43:21 03/30/20 25 03/30/2025 CBC W/DIF F lymphocytes 20.3 % 15.0-5 0.0 Not Available [facility] (Lab) [address], [place], [address], 04/02/2025 16:43:21 03/30/20 25 03/30/2025 CBC W/DIF F monocytes 5.5 % 1.0-15 .0 Not Available [facility] (Lab) [address], [place], [address], 04/02/2025 16:43:21 03/30/20 25 03/30/2025 CBC W/DIF F eosinophils 0.6 % 0.0-8. 0 Not Available [facility] (Lab) [address] [place], [address], 04/02/2025 16:43:21 03/30/20 25 03/30/2025 CBC W/DIF F basophils 0.3 % 0.0-2. 0 Not Available [facility] (Lab) [address], [place], [address], 04/02/2025 16:43:21 03/30/20 25 03/30/2025 CBC W/DIF [...] separ ately if prese nt. Not Available [facility] (Lab) [address], [place], [address], 04/02/2025 16:43:21 03/30/20 25 03/30/2025 CBC W/DIF F absolute neutrophils 5.8 10'3/ uL 1.5-8. 0 Not Available [facility] (Lab) [address], [place], [address], 04/02/2025 16:43:21 03/30/20 25 03/30/2025 CBC W/DIF F absolute lymphocytes 1.6 10'3/ uL 1.0-4. 0 Not Available [facility] (Lab) [address], [place], [address], 04/02/2025 16:43:21 03/30/20 25 03/30/2025 CBC W/DIF F absolute monocytes 0.4 10'3/ uL 0.2-1. 0 Not Available [facility] (Lab) [address], [place], [address], 04/02/2025 16:43:21 03/30/20 25 03/30/2025 CBC W/DIF F absolute eosinophils 0.1 10'3/ uL 0.0-0. 6 Not Available [facility] (Lab) [address], [place], [address], 04/02/2025 16:43:21 03/30/20 25 03/30/2025 CBC W/DIF F absolute basophils 0.0 10'3/ uL 0.0-0. 3 Not Available [facility] (Lab) [address], [place], [address], 04/02/2025 16:43:21 03/30/20 25 03/30/2025 CBC W/DIF [...] spears book. nm.or g/gen derx Not Available [facility] (Lab) [address], [place], [address], 04/02/2025 16:43:21 03/30/2003/30/2025 HEPAT ITIS C ANTIB CLAUDETTE SCREE N, REFLE X TO CONFI RMATI ON hepatitis C antibody Non-re active non-re active Antib odies to HCV Not Detec luis, does not exclu de the possi bilit y of expos ure to HCV. : Not Hispa juni or Latin o Not Available [facility] (Lab) [address], [place], [address], 04/02/2025 16:43:21 03/30/2003/30/2025 HEPAT ITIS B SURFA [...] Hispa juni or Latin o Not Available [facility] (Lab) [address], [place], [address], 04/02/2025 16:43:22 03/30/2003/30/2025 HIV 1/2 ANTIG EN/AN TIBOD Y, REFLE X CONFI RMATI ON HIV antigen/anti body Nonrea ctive nonrea ctive : Not Hispa juni or Latin o HIV-1 antig en and HIV-1 /HIV- 2 antib odies were not detec luis. No labor atory evide nce of HIV infec tion. Not Available [facility] (Lab) [address], [place], [address], 04/02/2025 16:43:22 03/30/20 25 03/30/2025 TYPE/ RH/SC REEN ABO/Rh type A POS Not Available [facility] (Lab) [address], [place], [address], 04/02/2025 16:43:23 03/30/20 25 03/30/2025 TYPE/ RH/SC REEN antibody screen NEG Not Available [facility] (Lab) [address], [place], [address], 04/02/2025 16:43:23 03/30/20 25 03/30/2025 TYPE/ RH/SC REEN exp date 2024 23:59 Not Available [facility] (Lab) [address], [place], [address], 04/02/2025 16:43:23 03/30/20 25 03/30/2025 RUBEL LA IGG ANTIB CLAUDETTE, QUANT rubella antibodies, IgG Reacti ve reacti ve Not Available [facility] (Lab) [address], [place], [address], 04/02/2025 16:43:23 03/30/20 25 03/30/2025 RUBEL LA IGG ANTIB CLAUDETTE, QUANT rubella antibodies, IgG quant 20.6 IU/mL >=10 : Not Hispa juni or Latin o Non-r eacti ve (Non- Immun e) <10 IU/mL React luli (Immu ne) > or = 10 IU/mL Not Available [facility] (Lab) [address], [place], [address], 04/02/2025 16:43:23 03/30/20 25 03/30/2025 HEMOG LOBIN [...] >8.0% Actio n sugge sted Not Available [facility] (Lab) [address], [place], [address], 04/02/2025 16:43:23 03/30/20 25 03/30/2025 RPR SCREE N, REFLE X TITER /CONF IRMAT ION RPR qualitative Nonrea ctive nonrea ctive : Not Hispa juni or Latin o Not Available [facility] (Lab) [address], [place], [address], 04/02/2025 16:43:24 03/30/20 25 03/30/2025 LEAD, BLOOD [...] ation s and is used for clini mohit purpo ses. : Not Hispa juni or Latin o Perfo rming Organ izati on Infor matedmund n: Site ID: CB Name: [facility] [place] Addre ss: [address] [place] [address] Direc tor: Carlie Rivera s Not Available [facility] (Lab) [address], [place], [address], 04/02/2025 16:43:24 07/21/20 25 07/21/2025 HEMAT OCRIT (HCT) HCT 39.0 % (based on docume nted legal sex) 34.0-4 5.0 Not Available [facility] (Lab) [address], [place], [address], 07/22/2025 13:19:40 07/21/20 25 07/21/2025 HEMOG LOBIN (HGB) HGB 13.1 g/dL (based on docume nted legal sex) 11.6-1 5.4 Not Available [facility] (Lab) [address], [place], [address], 07/22/2025 13:19:40 07/21/20 25 07/21/2025 GTT - GESTA LAUREN L NELSY N, ACOG OB glucose, 1 hour screen 122 mg/dL 70-135 Not Available [facility] (Lab) [address], [place], [address], 07/22/2025 13:19:40 07/21/20 25 07/21/2025 HIV 1/2 ANTIG EN/AN TIBOD Y, REFLE X CONFI RMATI ON HIV antigen/anti body Nonrea ctive nonrea ctive HIV-1 antig en and HIV-1 /HIV- 2 antib odies were not detec luis. No labor atory evide nce of HIV infec tion. Not Available [facility] (Lab) [address], [place], [address], 07/22/2025 13:19:41 07/21/20 25 07/21/2025 RPR SCREE N, REFLE X TITER /CONF IRMAT ION RPR qualitative Nonrea ctive nonrea ctive Not Available [facility] (Lab) [address] [place], [address], 07/22/2025 13:19:41 09/14/20 25 09/14/2025 CULTU RE: GROUP B STREP SCREE N, REFLE X SUSCE PTIBI LITY result report SEE RESULT S BELOW Test: Cultu re: Group B Strep , Refle x Susce ptibi lity ([facility]/ [facility] ) Speci men Sourc e: Vagin a/Rec michelle Speci men Type: Vagin al/Re ctal Speci men Date: 2024 1711 Resul t Date: 2024 1423 Resul t Statu s: Final resul t Abnor mal: No Resul ting Lab: [facility] [address] [facility] [address] Tel: CULTU RE ----- ----- ----- --- No Group B strep isola luis at 2 days (toyin ctive broth enhan cemen t) Not Available [facility] (Lab) [address], [place], [address], 09/17/2025 15:27:26 03/30/20 25 03/30/2025 US, obste tric, nucha l trans lucen cy No observ ation record ed. [email or web address] [address], [place], [address], 03/31/2025 10:09:17 03/30/20 25 03/30/2025 US, obste tric, nucha l trans lucen cy No observ ation record ed. [email or web address] [place] [address], [place], [address], 03/30/2025 18:43:35 05/27/20 25 05/27/2025 US, obste tric, 2nd or 3rd trime ster No observ ation record ed. [email or web address] [place] [address], [place], [address], 05/27/2025 13:35:00 05/27/20 25 05/27/2025 US, obste tric, 2nd or 3rd trime ster No observ ation record ed. [email or web address] [address], [place], [address], 05/27/2025 16:07:50 06/24/20 25 06/24/2025 US, obste tric, follo w-up No observ ation record ed. [facility] [address], [place], [address], 06/24/2025 17:08:43 06/24/20 25 06/24/2025 US, obste tric, follo w-up No observ ation record ed. Mel[address]ie [address], [place], [address], 06/24/2025 17:02:28 07/21/20 25 07/21/2025 US, obste tric, follo w-up No observ ation record ed. [facility] [address], [place], [address], 07/21/2025 15:22:55 07/21/20 25 07/21/2025 US, obste tric, follo w-up No observ ation record ed. [email or web address] [address], [place], [address], 07/22/2025 01:37:08 08/19/20 25 08/19/2025 US, obste tric, follo w-up No observ ation record ed. [email or web address] [place] [address], [place], [address], 08/19/2025 17:07:11 08/19/20 25 08/19/2025 US, obste tric, follo w-up No observ ation record ed. [email or web address] [address], [place], [address], 08/22/2025 10:39:24 09/14/20 25 09/14/2025 US, obste tric, follo w-up No observ ation record ed. [email or web address] [place] [address], [place], [address], 09/14/2025 17:58:23 09/14/20 25 09/14/2025 US, obste tric, follo w-up No observ ation record ed. AGNIESZKA [place] [address], [place], [address], 09/18/2025 09:36:54 Result Notes None recorded. Problems Name Problem SNOMED Code Status Onset Date Resolution Date Notes Provider Name and Address Organization Details Recorded Time 97196642 Active 2024 Sindy Sanchez null, [facility] 5 12:54:51 Abnormal placenta affecting management of mother 16415699 Active 2024 serial growth US RICO VAUGHN MD [address], [place], [address], [facility] 11:08:27 Problem Notes None recorded. Procedures Surgical History Date Name Laterality Status Provider Name and Address Organization Details Recorded Time Date of Last Pap Smear completed Sindy Sanchez [facility] 03/03/2025 16:18:09 9 Breast reduction completed Kelley Yanira [facility] 01/26/2025 14:37:39 Imaging Results None recorded. [...] Available Not Available Vitals Date Recorded Body weight Body mass index (BMI) Body height Systolic And Diastolic Provider Name and Address Organization Details Last Updated DateTime 09/14/2025 46521.919 78 g 32.3 kg/m2 165.1 cm 117/77 mm[Hg] Mehreen Kartik [facility] 09/14/2025 16:43:16 Social History Question Answer Notes LastModified by Organizat ion Details LastModified Time Tobacco Smoking Status Never Smoker Kelley Doyle [facility], [facility] 01/26/2025 14:37:11 Do You Have An Advance Directive? No Information n ot available 01/26/2025 How Many Years Have You Consumed Alcohol? 5 Information not available 01/26/2025 Are You Blind Or Do You Have Difficulty Seeing? No [email or web address] Information n ot available 01/26/2025 What Is Your Level Of Caffeine Consumption? Moderate [email or web address] Information not available 01/26/2025 In The 14 Days Before Symptom Onset, Have You Had Close Contact With A Laboratory-confirm ed COVID-19 While That Case Was Ill? No [email or web address] Information n ot available 01/26/2025 In The 14 Days Before Symptom Onset, Have You Had Close Contact With A Person Who Is Under Investigation For COVID-19 While That Person Was Ill? No [email or web address] Information not available 01/26/2025 Have You Been To An Area Known To Be High Risk For COVID-19? No [email or web address] Information not available 01/26/2025 Are You Deaf Or Do You Have Serious Difficulty Hearing? No [email or web address] Information not available 01/26/2025 What Type Of Diet Are You Following? REGULAR [email or web address] Information n ot available 01/26/2025 What Is The Highest Grade Or Level Of School You Have Completed Or The Highest Degree You Have Received? PH28322-3 [email or web address] Information not available 01/26/2025 Are There Any Guns Present In Your Home? Yes [email or web address] Information not available 01/26/2025 Have You Ever Been Counseled For Unhealthy Alcohol Use? No [email or web address] Information not available 05/27/2025 Do You Use Protection During Sex? No [email or web address] Information not available 01/26/2025 Do You Use Your Seat Belt Or Car Seat Routinely? Yes [email or web address] Information not available 01/26/2025 Are You Sexually Active? Yes [email or web address] Information not available 01/26/2025 Do You Have Smoke And Carbon Monoxide Detectors In Your Home? Yes Information not available 01/26/2025 How Much Tobacco Do You Smoke? No Information not available 01/26/2025 Do You Use Sunscreen Routinely? Yes [email or web address] Information not available 01/26/2025 Has Tobacco Cessation Counseling Been Provided? No Information not available 05/27/2025 Have You Used IV Drugs? No Information not available 01/26/2025 Do You Have Difficulty Walking Or Climbing Stairs? No [email or web address] Information not available 01/26/2025 Sex: Unknown Functional Status Question Answer Note LastModified by Organizat ion Details LastModified Time Do you use any illicit or recreational drugs? No [email or web address] Information not available 01/26/2025 What is your level of alcohol consumption? Occasional [email or web address] Information not available 01/26/2025 Are you currently employed? Yes [email or web address] Information not available 01/26/2025 Are you able to walk independently without assistance or assistive devices? YESWOREST [email or web address] Information not available 01/26/2025 Are you able to care for yourself independently? 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 No Information not available 01/26/2025 What is your exercise level? Moderate [email or web address] Information not available 01/26/2025 Mental Status Question Answer Note LastModified by Organization D etails LastModified Time Do you feel stressed (tense, restless, nervous, or anxious, or unable to sleep at night)? OF6932-2 [email or web address] Information not available 01/26/2025 Family History Relationship Description Onset Age of this Age Resolved Age Notes LastModified by Organization Details LastModified Time Mother Malignant neoplasm of breast 41 Double mastec marium - stage 1 [email or web address] Not available 07/21/2025 09:35:24 Mother Malignant neoplasm of breast [email or web address] Not available 2024 10:54:50 Medical History Condition Response Allergies (Food, seasonal, environmental ) N Other N Breast Cancer N Drug/Latex Allergies/Reactions N Blood Transfusion N Dermatologic Disorders N Lung Disease N Defects or Inherited Disease N Breast Problem N Gestational Diabetes N Hematologic disorders N Anesthesia Complications N History of STI N Deep Vein Thrombosis N Polycystic ovary syndrome N Anxiety Disorder N Autoimmune disease N Arthritis N Infertility N Polyps N Acid Reflux (GERD) N History of abnormal pap N Cancer N Stroke N Varicosities N Neurologic/Epilepsy N Endometriosis N High Cholesterol N Headaches N Fibromyalgia N Kidney Disease N Heart Problems N Kidney or Bladder Problems N Thyroid Problems N GI Problems N Eating Disorder [...] ICD10 Code Diagnosis IMO Codes Diagnosis Note [id number] RICO VAUGHN MD [place] [address],[place] [address] 08/19/2025 15:47:49 08/19/2025 16:29:31 Anomaly of placenta 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 O43.103 Z3A.32 5042886 [id number] RICO VAUGHN MD [place] [address],[facility] [place] [address] 08/19/2025 15:48:09 08/19/2025 16:58:48 Abnormal placenta affecting management of mother 99855773 O43.199 72086489 - serial growth US Gestation period, 32 weeks 5167064 Z3A.32 7398511 - continue PNV [id number] RICO VAUGHN MD [place] [address],[facility] [place] [address] 09/02/2025 14:23:27 09/02/2025 14:56:42 Abnormal placenta affecting management of mother 14355719 O43.199 78928928 - serial growth US Gestation period, 34 weeks 86141735 Z3A.34 4142545 [id number] RICO VAUGHN MD [place] [address] [address] 09/14/2025 15:53:59 09/14/2025 16:45:06 Anomaly of placenta 48004375 O43.103 Z3A.36 7908697 [id number] RICO VAUGHN MD [place] [address],[facility] [place] [address] 09/14/2025 15:54:35 09/14/2025 17:21:21 Abnormal placenta affecting management of mother 73398705 O43.199 72678399 - serial growth Gestation period, 36 weeks 37157652 Z3A.36 9051247 - continue PNV Health Concerns Section Related Observation LastModified by Organization Detai ls LastModified Time None Recorded Concern Status LastModified by Organization Details LastModified Time None Recorded Payers Encounter Date Sequence Insurance Name Policy Number Policy Serrato Covered Member ID Serrato Member ID Guarantor Name 09/14/2025 1 [employer] [id number] Eric Tolbert [id number] Renata Tolbert Notes Date Note Type Note Provider Name and Address Organization Details Recorded Time 09/14/2025 text/html Generic HPI TemplateReported by Patient RICO VAUGHN MD [address], [place], [address], [facility] 09/14/2025 17:20:38 OBGyn Episode Ob Episode Information Episode Created Date Number of Fetuses Patient Bloodtype Patient rh Status Prepregnancy Weight lbs Domestic Partner Domestic Partner Phone Father Name Clinical Nurse Reviewer Status 03/30/20 25 1 A Positive 147 Eric OPEN Fetus Data First Name Last Name Admitted to NICU Weight (g) Sex Living Outcome Pediatric Complications Fetus ID Race Codes Race Delivery Type [id number] Problems Problem Notes Problem Name Start Date End Date Resolution Snomed Code Not e Abnormal placenta affecting management of mother 05/27/2025 [id number] serial growth [facility] Enio Calculation Initial Enio Date Initial Exam Date Initial Exam Provider Initial Ultrasound Date Last Menstrual Period Date Ultra Sound Weeks Gestation 10/12/2025 03/30/2025 03/03/202501/05/2025 8 Eighteen To Twenty Week Enio Update Ultra Sound Date Fundal Height At Umbil Quickening Date Ultra Sound Latest Weeks Gestation Final Enio Confirmed By Final Enio Confirmed Date Final Enio Date Ultra Sound Latest Days Gestation 0 [email or web address] 03/30/2025 10/12/20 25 0 Pre- Flowsheet Flowsheet Date 03/30/2025 Suresh Score Blood Edema Fundus Height Fundus Units Glucose Ketones Leukocytes Nitrite Labor Signs Protein Cervic Dilation Cervic Effacement Cervic Station Type Weight in lbs Pre/Post Dialysis Refused Weight 154.70981113070 BP Diastolic BP Location Tested BP Systolic BP Type 74 L arm 107 sitting Fetus Heart Rate Present A Present Fetus Movement A No Comments Patient presents to [facility] care. Hx of uncomplicated . otherwise uncomplicated. No nausea or cramping. NT/NB wnl today, desires NIPT. Will draw today with new OB labs. RTC 4 weeks for routine care. Flowsheet Date 04/27/2025 Suresh Score Blood Edema Fundus Height Fundus Units Glucose Ketones Leukocytes Nitrite Labor Signs Protein Cervic Dilation Cervic Effacement Cervic Station Type Weight in lbs Pre/Post Dialysis Refused Weight 160.838059451840 BP Diastolic BP Location Tested BP Systolic [...] Type Weight in lbs Pre/Post Dialysis Refused 165.089394168149 BP Diastolic BP Location Tested BP Systolic [...] Type Weight in lbs Pre/Post Dialysis Refused 174.37043332269 BP Diastolic BP Location Tested BP Systolic [...] Type Weight in lbs Pre/Post Dialysis Refused 182.838653920380 BP Diastolic BP Location Tested BP Systolic [...] Type Weight in lbs Pre/Post Dialysis Refused 186.501887722839 BP Diastolic BP Location Tested BP Systolic [...] Weight in lbs Pre/Post Dialysis Refused Weight 187.230431904868 BP Diastolic BP Location Tested BP Systolic [...] Weight in lbs Pre/Post Dialysis Refused Weight 190.915011460632 BP Diastolic BP Location Tested BP Systolic [...] Type Weight in lbs Pre/Post Dialysis Refused 194.083664796007 BP Diastolic BP Location Tested BP Systolic [...] Weight in lbs Pre/Post Dialysis Refused Weight 196.658660219730 BP Diastolic BP Location Tested BP Systolic [...] Type Weight in lbs Pre/Post Dialysis Refused 196.769549065806 BP Diastolic BP Location Tested BP Systolic [...]
--- OUTSIDE RECORDS SUMMARY | 2025-10-02 05:56 | XMS_ITS | Data Portability ---
Author Organization [facility] Address [address] [place] [address] [place] [address] Assessment Encounter Date Assessment Date Assessment LastModified by Organization Details LastModified Time 09/30/2025 09/30/2025 Patient is _38__weeks . Discussed plan. Not available 09/30/2025 10:53:01 Plan of Treatment Reminders Order Date Submit Date Provider Last Modified By Organization Details Last Modified Time Details Appointments OB ROUTINE 2024 08:45A Regina VAUGHN MD Not available Not available Not available Lab None recorded . Referral None recorded . Procedures None recorded . Surgeries None recorded . Imaging US, obstetri c, follow-u p 2024 025 [email or web address] [place], [facility] [address], [place], [address], 09/16/2025 11:02:29 Medication Orders None recorded . Patient TargetsNo targets recorded. Patient InstructionsNo instructions recorded. Reason for Referral None Reported. Results Created Date Observation Date Name Description Value Unit Range Abnormal Flag Note LastModifiedBy Organization Detail LastModifiedTime 09/14/2009/14/2025 CULTU RE: GROUP B STREP SCREE N, [...] Resul ting Lab: [facility] [address] [facility] [address] Tel: CULTU RE ----- ----- ----- --- No Group B strep isola luis at 2 days (toyin ctive broth enhan cemen t) Not Available [facility] (Lab) [address], [place], [address], 09/17/2025 15:27:26 08/19/20 25 08/19/2025 US, obste tric, follo w-up No observ ation record ed. [email or web address] [place] [address], [place], [address], 08/19/2025 17:07:11 08/19/20 25 08/19/2025 US, obste tric, follo w-up No observ ation record ed. AGNIESZKA Sewell [address], [place], [address], 08/22/2025 10:39:24 09/14/20 25 09/14/2025 US, obste tric, follo w-up No observ ation record ed. [email or web address] [place] [address], [place], [address], 09/14/2025 17:58:23 09/14/20 25 09/14/2025 US, obste tric, follo w-up No observ ation record ed. AGNIESZKAEMERALD Sewell [address], [place], [address], 09/18/2025 09:36:54 Result Notes None recorded. Problems Name Problem SNOMED Code Status Onset Date Resolution Date Notes Provider Name and Address Organization Details Recorded Time 49732381 Active 2024 Sindy Sanchez [facility], [place] - [facility] 06/18/202 5 12:54:51 Abnormal placenta affecting management of mother 43924475 Active 2024 serial growth [place] RICO VAUGHN MD [address], [place], [address], [facility] 5 11:08:27 Problem Notes None recorded. Procedures Surgical History Date Name Laterality Status Provider Name and Address Organization Details Recorded Time 5 Date of Last Pap Smear completed Sindy Sanchez [facility] 03/03/2025 16:18:09 9 Breast reduction completed [facility] 01/26/2025 14:37:39 Imaging Results None recorded. [...] Updated DateTime 09/02/2025 165.1 cm 31.6 kg/m2 44024.55 g 113/71 mm[Hg] [facility] 09/02/2025 14:41:01 Date Recorded Body weight Body mass index (BMI) Body height Systolic And Diastolic Provider Name and Address Organization Details Last Updated DateTime 09/14/2025 40288.919 78 g 32.3 kg/m2 165.1 cm 117/77 mm[Hg] [facility] 09/14/2025 16:43:16 Date Recorded Body height Body mass index (BMI) Body weight Systolic And Diastolic Provider Name and Address Organization Details Last Updated DateTime 09/20/2025 165.1 cm 32.7 kg/m2 78028.98 g 109/74 mm[Hg] [facility] 09/20/2025 16:22:16 Date Recorded Body weight Body mass index (BMI) Body height Systolic And Diastolic Provider Name and Address Organization Details Last Updated DateTime 09/30/2025 20639.104 52 g 32.6 kg/m2 165.1 cm 105/71 mm[Hg] Mehreenisaac [place] [facility] 09/30/2025 10:43:12 Social History Question Answer Notes LastModified by Organizat ion Details LastModified Time Tobacco Smoking Status Never Smoker Kelley Doyle ollie, [facility] 01/26/2025 14:37:11 Do You Have An Advance Directive? No [email or web address] Information n ot available 01/26/2025 How Many Years Have You Consumed Alcohol? 5 [email or web address] Information not available 01/26/2025 Are You Blind Or Do You Have Difficulty Seeing? No [email or web address] Information n ot available 01/26/2025 What Is Your Level Of Caffeine Consumption? Moderate [email or web address] Information not available 01/26/2025 In The 14 Days Before Symptom Onset, Have You Had Close Contact With A Laboratory-confirm ed COVID-19 While That Case Was Ill? No [email or web address] Information n ot available 01/26/2025 In The 14 Days Before Symptom Onset, Have You Had Close Contact With A Person Who Is Under Investigation For COVID-19 While That Person Was Ill? No [email or web address] Information not available 01/26/2025 Have You Been To An Area Known To Be High Risk For COVID-19? No [email or web address] Information not available 01/26/2025 Are You Deaf Or Do You Have Serious Difficulty Hearing? No [email or web address] Information not available 01/26/2025 What Type Of Diet Are You Following? REGULAR [email or web address] Information n ot available 01/26/2025 What Is The Highest Grade Or Level Of School You Have Completed Or The Highest Degree You Have Received? KH10286-1 [email or web address] Information not available 01/26/2025 Are There Any Guns Present In Your Home? Yes [email or web address] Information not available 01/26/2025 Have You Ever Been Counseled For Unhealthy Alcohol Use? No [email or web address] Information not available 05/27/2025 Do You Use Protection During Sex? No [email or web address] Information not available 01/26/2025 Do You Use Your Seat Belt Or Car Seat Routinely? Yes [email or web address] Information not available 01/26/2025 Are You Sexually Active? Yes [email or web address] Information not available 01/26/2025 Do You Have Smoke And Carbon Monoxide Detectors In Your Home? Yes [email or web address] Information not available 01/26/2025 How Much Tobacco Do You Smoke? No [email or web address] Information not available 01/26/2025 Do You Use Sunscreen Routinely? Yes [email or web address] Information not available 01/26/2025 Has Tobacco Cessation Counseling Been Provided? No [email or web address] Information not available 05/27/2025 Have You Used IV Drugs? No Information not available 01/26/2025 Do You Have Difficulty Walking Or Climbing Stairs? No Information not available 01/26/2025 Sex: Unknown Functional Status Question Answer Note LastModified by Organizat ion Details LastModified Time Do you use any illicit or recreational drugs? No [email or web address] Information not available 01/26/2025 What is your level of alcohol consumption? Occasional [email or web address] Information not available 01/26/2025 Are you currently employed? Yes Information not available 01/26/2025 Are you able to walk independently without assistance or assistive devices? YESWOREST [email or web address] Information not available 01/26/2025 Are you able to care for yourself independently? 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 No [email or web address] Information not available 01/26/2025 What is your exercise level? Moderate [email or web address] Information not available 01/26/2025 Mental Status Question Answer Note LastModified by Organization D etails LastModified Time Do you feel stressed (tense, restless, nervous, or anxious, or unable to sleep at night)? [id number] [email or web address] Information not available 01/26/2025 Family History Relationship Description Onset Age of this Age Resolved Age Notes LastModified by Organization Details LastModified Time Mother Malignant neoplasm of breast 41 Double mastec marium - stage 1 [email or web address] Not available 07/21/2025 09:35:24 Mother Malignant neoplasm of breast [email or web address] Not available 2024 10:54:50 Medical History Condition [...] ICD10 Code Diagnosis IMO Codes Diagnosis Note [id number] Luis Antonio Grimes MD [place] [address] [address] 01/26/2025 14:23:45 01/26/2025 15:21:27 Gynecologic examination 40128594 Z01.419 Annual gynecologi mohit exam performed. Patient will come back in a year unless there are new symptoms. Suggest Calcium with Vitamin D if not eating in diet. Patient advised to get annual flu shot. Recommend yearly physicals and perform monthly breast exams. Genetic testing is available for patients with family history of cancer. Engage in safe sexual practices, use condoms. Encouraged to have daily exercise. Avoid tobacco and illicit drugs, moderation of alcohol. If BMI greater than 25 dietary consult advised. If you have any questions please call or email. Pap smear- pap w/ HPV collected laboratory evaluation - requested STI testing - declined Recommende d daily PNV if control not practiced. Family his tory of breast cancer 082139599 Z80.3 Patient reports that mother was diagnosed with stage 1 breast cancer at age 41 and had double mastectomy . Patient unsure what type of breast cancer or if geneticall y linked.Dis cussed genetic testing for hereditary cancer, pt interested . [id number] Luis Antonio Grimes MD [place] [address],[place] [address] 03/03/2025 15:21:16 03/03/2025 15:43:38 [id number] Luis Antonio Grimes MD [place] [address],[place] [address] 03/03/2025 15:21:36 03/03/2025 16:49:45 Amenorrhea 53614023 N91.2 66035 this patient is a 29-year-ol d female who presents for amenorrhea . She is a positive test. Ultrasound revealed a 1st trimester gestation. Patient has no complaints . We talked about early care. Talked about genetic screening. We talked about her ultrasound results. We talked about the 12 week ultrasound that has genetic screening components . She was given recommenda tions on exercise, diet, over-the-c ounter medication s. We reviewed her obstetric history. We reviewed her medical history. We reviewed her social history. She will begin routine care at her next visit. [id number] MD Lalo HENDERSON [address],[facility] [place] [address] 03/30/2025 11:48:04 03/30/2025 12:49:09 screening 013919952 Z36.82 Z3A.12 190192 [id number] RICO VAUGHN MD [place] [address],[facility] [place] [address] 03/30/2025 11:48:59 03/30/2025 15:52:05 Gestation period, 12 weeks 13349957 Z3A.12 3948289 [id number] MD Lalo HENDERSON [address],[place] [address] 04/27/2025 09:38:58 04/27/2025 10:12:47 care status 656693316 Z34.82 16301172 [id number] MD Lalo HENDERSON [address],[place] [address] 05/27/2025 09:23:33 05/27/2025 10:35:37 Ultrasound scan - obstetric 504663142 Z36.3 Z3A.20 92486 [id number] MD Lalo HENDERSON [address],[place] [address] 05/27/2025 09:23:54 05/27/2025 11:36:04 Abnormal placenta affecting management of mother 50472934 O43.199 01736391 - serial growth US Gestation period, 20 weeks 19976051 Z3A.20 0657161 [id number] MD Lalo HENDERSON [address],[place] [address] 06/24/2025 15:49:13 06/24/2025 16:29:01 Abnormal placenta affecting management of mother 85481212 O43.193 Z3A.24 00717539 - serial growth [place] [id number] MD Lalo HENDERSON [address],[place] [address] 06/24/2025 15:49:30 06/24/2025 16:57:41 Abnormal placenta affecting management of mother 46255685 O43.199 89456660 - serial growth US Gestation period, 24 weeks 758598349 Z3A.24 6648711 - continue PNV [id number] MD Lalo HENDERSON [address],[place] [address] 07/21/2025 09:35:16 07/21/2025 10:32:24 Anomaly of placenta 33876357 O43.103 Z3A.28 2158946 [id number] MD Lalo HENDERSON [address],[place] [address] 07/21/2025 09:35:34 07/21/2025 10:55:24 Abnormal placenta affecting management of mother 87822612 O43.199 98195922 - serial growth US Gestation period, 28 weeks 88877150 Z3A.28 0305609 [id number] [address] Funez [facility] [address],[place] [address] 08/05/2025 14:24:29 08/05/2025 14:52:26 Gestation period, 30 weeks 95698579 Z3A.30 2773773 [id number] RICO VAUGHN MD [place] [address],[place] [address] 08/19/2025 15:47:49 08/19/2025 16:29:31 Anomaly of placenta 57409882 O43.103 Z3A.32 8844458 [id number] RICO VAUGHN MD [place] [address],[place] [address] 08/19/2025 15:48:09 08/19/2025 16:58:48 Abnormal placenta affecting management of mother 95552958 O43.199 56270349 - serial growth US Gestation period, 32 weeks 9437641 Z3A.32 7069211 - continue PNV [id number] RICO VAUGHN MD [place] [address],[place] [address] 09/02/2025 14:23:27 09/02/2025 14:56:42 Abnormal placenta affecting management of mother 93493345 O43.199 83045048 - serial growth US Gestation period, 34 weeks 65726223 Z3A.34 9495999 [id number] MD Lalo HENDERSON [address],[place] [address] 09/14/2025 15:53:59 09/14/2025 16:45:06 Anomaly of placenta 30059307 O43.103 Z3A.36 3574774 [id number] MD Lalo HENDERSON [address],[place] [address] 09/14/2025 15:54:35 09/14/2025 17:21:21 Abnormal placenta affecting management of mother 57351910 O43.199 69329913 - serial growth US Gestation period, 36 weeks 39405787 Z3A.36 4377669 - continue PNV [id number] RICO VAUGHN MD [place] [address] [address] 09/20/2025 16:07:26 09/20/2025 16:51:07 Abnormal placenta affecting management of mother 76519132 O43.199 05085071 - serial growth US Gestation period, 36 weeks 11991222 Z3A.36 4109400 - continue PNV [id number] [facility] [address] [address] 09/30/2025 10:27:06 09/30/2025 10:59:53 Gestation period, 38 weeks 57757058 Z3A.38 [id number] Health Concerns Section Related Observation LastModified by Organization Detai ls LastModified Time None Recorded Concern Status LastModified by Organization Details LastModified Time None Recorded Advance Directives Directive N: Payers Insurance Date Sequence Insurance Name Policy Number Policy Serrato Covered Member ID Serrato Member ID Guarantor Name 09/27/2025 1 [place] [id number] Eric Tolbert [id number] Renata Tolbert Notes Date Note Type Note Provider Name and Address Organization Details Recorded Time 09/02/2025 text/html Generic HPI TemplateReported by Patient RICO VAUGHN MD [address], [place], [address], [facility] 09/02/2025 14:56:10 09/14/2025 text/html Generic HPI TemplateReported by Patient RICO VAUGHN MD [address], [place], [address], [facility] 09/14/2025 17:20:38 09/20/2025 text/html Generic HPI TemplateReported by Patient RICO VAUGHN MD [address], [place], [address], [facility] 09/20/2025 16:32:54 09/30/2025 text/html Generic HPI TemplateReported by Patient Bernice Norton Dee Dee, RONNI [address], [place], [address], [place] [facility] 09/30/2025 10:53:45 OBGyn Episode Ob Episode Information Episode Created Date Number of Fetuses Patient Bloodtype Patient rh Status Prepregnancy Weight lbs Domestic Partner Domestic Partner Phone Father Name Rejected Items Clerk Status 03/30/20 25 1 A Positive 147 Eric OPEN Fetus Data First Name Last Name Admitted to NICU Weight (g) Sex Living Outcome Pediatric Complications Fetus ID Race Codes Race Delivery Type [id number] Problems Problem Notes Problem Name Start Date End Date Resolution Snomed Code Not e Abnormal placenta affecting management of mother 05/27/2025 06410578 serial growth U Enio Calculation Initial Enio [...] Date Ultra Sound Latest Days Gestation 0 [email or web address] 03/30/2025 10/12/20 25 0 Pre-sonia Flowsheet Flowsheet Date 03/30/2025 Suresh Score Blood Edema Fundus Height Fundus Units Glucose Ketones Leukocytes Nitrite Labor Signs Protein Cervic Dilation Cervic Effacement Cervic Station Type Weight in lbs Pre/Post Dialysis Refused Weight 154.98476689030 BP Diastolic BP Location Tested BP Systolic BP Type 74 L arm 107 sitting Fetus Heart Rate Present A Present Fetus Movement A No Comments Patient presents to [facility] care. Hx of uncomplicated . otherwise uncomplicated. No nausea or cramping. NT/NB wnl today, desires NIPT. Will draw today with new OB labs. RTC 4 weeks for routine care. Flowsheet Date 04/27/2025 Suresh Score Blood Edema Fundus Height Fundus Units Glucose Ketones Leukocytes Nitrite Labor Signs Protein Cervic Dilation Cervic Effacement Cervic Station Type Weight in lbs Pre/Post Dialysis Refused Weight 160.936196427981 BP Diastolic BP Location Tested BP Systolic [...] Type Weight in lbs Pre/Post Dialysis Refused 165.127391525199 BP Diastolic BP Location Tested BP Systolic [...] Type Weight in lbs Pre/Post Dialysis Refused 174.28345142981 BP Diastolic BP Location Tested BP Systolic [...] Present Fetus Movement Comments Flowsheet Date 07/21/2025 Usresh Score Blood Edema Fundus Height Fundus Units Glucose Ketones Leukocytes Nitrite Labor Signs Protein Cervic Dilation Cervic Effacement Cervic Station Type Weight in lbs Pre/Post Dialysis Refused 182.274783856852 BP Diastolic BP Location Tested BP Systolic [...] Type Weight in lbs Pre/Post Dialysis Refused 186.471259864753 BP Diastolic BP Location Tested BP Systolic [...] Weight in lbs Pre/Post Dialysis Refused Weight 187.619663526073 BP Diastolic BP Location Tested BP Systolic [...] Weight in lbs Pre/Post Dialysis Refused Weight 190.301216617929 BP Diastolic BP Location Tested BP Systolic [...] Type Weight in lbs Pre/Post Dialysis Refused 194.972277121393 BP Diastolic BP Location Tested BP Systolic [...] Weight in lbs Pre/Post Dialysis Refused Weight 196.661406222950 BP Diastolic BP Location Tested BP Systolic [...] Type Weight in lbs Pre/Post Dialysis Refused 196.823837062415 BP Diastolic BP Location Tested BP Systolic [...] Method Maternal HG B and HCT Levels Ob Episode Information Episode Created Date Number of Fetuses Patient Bloodtype Patient rh Status Prepregnancy Weight lbs Domestic Partner Domestic Partner Phone Father Name Rejected Items Clerk Status 01/27/20 25 1 CLOSED Fetus Data First Name Last Name Admitted to NICU Weight (g) Sex Living Outcome Pediatric Complications Fetus ID Race Codes Race Delivery Type 3600.15 [id number] F Full Term [id number] Vaginal Delivery Enio Calculation Initial Enio Date Initial Exam Date Initial Exam Provider Initial Ultrasound Date Last Menstrual Period Date Ultra Sound Weeks Gestation 0 Eighteen To Twenty Week Enio Update Ultra Sound Date Fundal Height At Umbil Quickening Date Ultra Sound Latest Weeks Gestation Final Enio Confirmed By Final Enio Confirmed Date Final Enio Date Ultra Sound Latest Days Gestation 0 0 Menstrual History Last Menstrual Date Menses Monthly On Bcp Conception Prior Menses Frequency Hcg Plus Date Menarche Onset Age Delivery Information Delivery Date Delivery Type Labor Anesthesia Weeks Gestation Incision Type Labor Labor Length Hrs Delivered By Post Complications Tubal Sterilization Discharge Date Comments 3 39.5 Discharge Information Feeding Method Contraceptive Method Maternal HG B and HCT Levels
--- OUTSIDE RECORDS SUMMARY | 2025-10-02 05:56 | XMS_ITS | Continuity of Care Document ---
Author Organization [facility] [place] Address [address] [place] [address] Assessment No assessment recorded. Plan of Treatment [...] [facility] [address], [place], [address], 04/04/2025 15:29:25 04/04/20 25 04/04/2025 [UNIT Y] ANEUP LOIDY NIPT 22Q11.2 microdeletio n LOW RISK <1 in 10,000 normal Not Available [facility] [address], [place], [address], 04/04/2025 15:29:25 04/04/20 25 04/04/2025 [UNIT Y] ANEUP LOIDY NIPT sex chromosome aneuploidy NOT DETECT ED normal Not Available [facility] [address], [place], [address], 04/04/2025 15:29:25 04/04/20 25 04/04/2025 [UNIT Y] ANEUP LOIDY NIPT monosomy X LOW RISK <1 in 10,000 normal Not Available [facility] [address], [place], [address], 04/04/2025 15:29:25 04/04/20 25 04/04/2025 [UNIT Y] ANEUP LOIDY NIPT trisomy 13 LOW RISK <1 in 10,000 normal Not Available [facility] [address], [place], [address], 04/04/2025 15:29:25 04/04/20 25 04/04/2025 [UNIT Y] ANEUP LOIDY NIPT trisomy 18 LOW RISK <1 in 10,000 normal Not Available [facility] [address], [place], [address], 04/04/2025 15:29:25 04/04/20 25 04/04/2025 [UNIT Y] ANEUP LOIDY NIPT trisomy 21 LOW RISK <1 in 10,000 normal Not Available [facility] [address], [place], [address], 04/04/2025 15:29:25 04/04/20 25 04/04/2025 [UNIT Y] ANEUP LOIDY NIPT sex MALE normal Not Available [facility] [address], [place], [address], 04/04/2025 15:29:25 04/04/20 25 04/04/2025 [UNIT Y] ANEUP LOIDY NIPT gestation SINGLE TON normal Not Available [facility] [address], [place], [address], 04/04/2025 15:29:25 04/04/20 25 04/04/2025 [UNIT Y] ANEUP LOIDY NIPT for detailed report, see pdf See PDF normal Not Available [facility] [address], [place], [address], 04/04/2025 15:29:25 04/11/20 25 04/11/2025 [UNIT Y] THOMAS WHITTINGTON Kathrine sickle cell disease/beta -thalassemia /hemoglobino pathies carrier screen NEGATI VE normal Not Available [facility] [address], [place], [address], 04/11/2025 12:08:11 04/11/20 25 04/11/2025 [UNIT Y] THOMAS WHITTINGTON Kathrine alpha-thalas semia carrier screen NEGATI VE normal Not Available [facility] [address], [place], [address], 04/11/2025 12:08:11 04/11/20 25 04/11/2025 [UNIT Y] THOMAS WHITTINGTON Kathrine cystic fibrosis carrier screen NEGATI VE normal Not Available [facility] [address], [place], [address], 04/11/2025 12:08:11 04/11/20 25 04/11/2025 [UNIT Y] THOMAS WHITTINGTON Kathrine spinal muscular atrophy carrier screen NEGATI VE 2 SMN1 copies , SNP not presen t normal Not Available [facility] [address], [place], [address], 04/11/2025 12:08:11 04/11/20 25 04/11/2025 [UNIT Y] THOMAS WHITTINGTON Kathrine for detailed report, see pdf See PDF normal Not Available [facility] [address], [place], [address], 04/11/2025 12:08:11 03/30/20 25 03/30/2025 CULTU RE: URINE result report SEE RESULT S BELOW Test: Cultu re: Urine Speci men Sourc e: Urine Voide d Speci men Type: Urine Speci men Date: 2024 1419 Resul t Date: 2024 2343 Resul t Statu s: Final resul t Abnor mal: No Resul ting Lab: [facility] [address] [facility] [address] Tel: CULTU RE ----- ----- ----- --- Organ ism(s ) consi stent with uroge nital or skin deja . Repea t cultu re if sympt oms indic ate. Not Available [facility] (Lab) [address] [facility], [place], [address], 04/01/2025 00:46:12 03/30/20 25 03/30/2025 CBC W/DIF F WBC 8.0 10'3/ uL 3.5-10 .5 Not Available [facility] (Lab) [address] [facility], [place], [address], 04/02/2025 16:43:21 03/30/20 25 03/30/2025 CBC W/DIF F RBC 4.19 10'6/ uL (based on docume nted legal sex) 3.80-5 .20 Not Available [facility] (Lab) [address] [facility], [place], [address], 04/02/2025 16:43:21 03/30/20 25 03/30/2025 CBC W/DIF F HGB 13.3 g/dL (based on docume nted legal sex) 11.6-1 5.4 Not Available [facility] (Lab) [address] [place], [address], 04/02/2025 16:43:21 03/30/20 25 03/30/2025 CBC W/DIF F HCT 39.6 % (based on docume nted legal sex) 34.0-4 5.0 Not Available [facility] (Lab) [address] [place], [address], 04/02/2025 16:43:21 03/30/20 25 03/30/2025 CBC W/DIF F MCV 94.5 fL 80.0-9 9.0 Not Available [facility] (Lab) [address] [place], [address], 04/02/2025 16:43:21 03/30/20 25 03/30/2025 CBC W/DIF F MCH 31.7 pg 27.0-3 4.0 Not Available [facility] (Lab) [address] [facility], [place], [address], 04/02/2025 16:43:21 03/30/20 25 03/30/2025 CBC W/DIF F MCHC 33.6 g/dL 32.0-3 5.5 Not Available [facility] (Lab) [address] [facility], [place], [address], 04/02/2025 16:43:21 03/30/20 25 03/30/2025 CBC W/DIF F RDW 12.7 % 11.0-1 5.0 Not Available [facility] (Lab) [address] [facility], [place], [address], 04/02/2025 16:43:21 03/30/20 25 03/30/2025 CBC W/DIF F plt 307 10'3/ uL 150-40 0 Not Available [facility] (Lab) [address] [facility], [place], [address], 04/02/2025 16:43:21 03/30/20 25 03/30/2025 CBC W/DIF F MPV 10.2 fL 8.8-12 .1 Not Available [facility] (Lab) [address] [facility], [place], [address], 04/02/2025 16:43:21 03/30/20 25 03/30/2025 CBC W/DIF F NRBC's 0.0 % 0.0 Not Available [facility] (Lab) [address] [facility], [place], [address], 04/02/2025 16:43:21 03/30/20 25 03/30/2025 CBC W/DIF F absolute NRBCs 0.0 10'3/ uL no refere nce range establ ished Not Available [facility] (Lab) [address] [facility], [place], [address], 04/02/2025 16:43:21 03/30/20 25 03/30/2025 CBC W/DIF F neutrophils 73.0 % 34.0-7 3.0 Not Available [facility] (Lab) [address] [facility], [place], [address], 04/02/2025 16:43:21 03/30/20 25 03/30/2025 CBC W/DIF F lymphocytes 20.3 % 15.0-5 0.0 Not Available [facility] (Lab) [address] [facility], [place], [address], 04/02/2025 16:43:21 03/30/20 25 03/30/2025 CBC W/DIF F monocytes 5.5 % 1.0-15 .0 Not Available [facility] (Lab) [address] [facility], [place], [address], 04/02/2025 16:43:21 03/30/20 25 03/30/2025 CBC W/DIF F eosinophils 0.6 % 0.0-8. 0 Not Available [facility] (Lab) [address] [place], [address], 04/02/2025 16:43:21 03/30/20 25 03/30/2025 CBC W/DIF F basophils 0.3 % 0.0-2. 0 Not Available [facility] (Lab) [address] [facility], [place], [address], 04/02/2025 16:43:21 03/30/20 25 03/30/2025 CBC W/DIF [...] separ ately if prese nt. Not Available [facility] (Lab) [address] [facility], [place], [address], 04/02/2025 16:43:21 03/30/20 25 03/30/2025 CBC W/DIF F absolute neutrophils 5.8 10'3/ uL 1.5-8. 0 Not Available [facility] (Lab) [address] [facility], [place], [address], 04/02/2025 16:43:21 03/30/20 25 03/30/2025 CBC W/DIF F absolute lymphocytes 1.6 10'3/ uL 1.0-4. 0 Not Available [facility] (Lab) [address] [facility], [place], [address], 04/02/2025 16:43:21 03/30/20 25 03/30/2025 CBC W/DIF F absolute monocytes 0.4 10'3/ uL 0.2-1. 0 Not Available [facility] (Lab) [address] [facility], [place], [address], 04/02/2025 16:43:21 03/30/20 25 03/30/2025 CBC W/DIF F absolute eosinophils 0.1 10'3/ uL 0.0-0. 6 Not Available [facility] (Lab) [address] [facility], [place], [address], 04/02/2025 16:43:21 03/30/20 25 03/30/2025 CBC W/DIF F absolute basophils 0.0 10'3/ uL 0.0-0. 3 Not Available [facility] (Lab) [address] [facility], [place], [address], 04/02/2025 16:43:21 03/30/20 25 03/30/2025 CBC W/DIF [...] spears book. nm.or g/gen derx Not Available [facility] (Lab) [address], [place], [address], 04/02/2025 16:43:21 03/30/2003/30/2025 HEPAT ITIS C ANTIB CLAUDETTE SCREE N, REFLE X TO CONFI RMATI ON hepatitis C antibody Non-re active non-re active Antib odies to HCV Not Detec luis, does not exclu de the possi bilit y of expos ure to HCV. : Not Hispa juni or Latin o Not Available [facility] (Lab) [address], [place], [address], 04/02/2025 16:43:21 03/30/2003/30/2025 HEPAT ITIS B SURFA [...] Hispa juni or Latin o Not Available [facility] (Lab) [address], [place], [address], 04/02/2025 16:43:22 03/30/2003/30/2025 HIV 1/2 ANTIG EN/AN TIBOD Y, REFLE X CONFI RMATI ON HIV antigen/anti body Nonrea ctive nonrea ctive : Not Hispa juni or Latin o HIV-1 antig en and HIV-1 /HIV- 2 antib odies were not detec luis. No labor atory evide nce of HIV infec tion. Not Available [facility] (Lab) [address], [place], [address], 04/02/2025 16:43:22 03/30/20 25 03/30/2025 TYPE/ RH/SC REEN ABO/Rh type A POS Not Available [facility] (Lab) [address] [facility], [place], [address], 04/02/2025 16:43:23 03/30/20 25 03/30/2025 TYPE/ RH/SC REEN antibody screen NEG Not Available [facility] (Lab) [address] [facility], [place], [address], 04/02/2025 16:43:23 03/30/20 25 03/30/2025 TYPE/ RH/SC REEN exp date 2024 23:59 Not Available [facility] (Lab) [address] [facility], [place], [address], 04/02/2025 16:43:23 03/30/20 25 03/30/2025 RUBEL LA IGG ANTIB CLAUDETTE, QUANT rubella antibodies, IgG Reacti ve reacti ve Not Available [facility] (Lab) [address] [facility], [place], [address], 04/02/2025 16:43:23 03/30/20 25 03/30/2025 RUBEL LA IGG ANTIB CLAUDETTE, QUANT rubella antibodies, IgG quant 20.6 IU/mL >=10 : Not Hispa juni or Latin o Non-r eacti ve (Non- Immun e) <10 IU/mL React luli (Immu ne) > or = 10 IU/mL Not Available [facility] (Lab) [address] [facility], [place], [address], 04/02/2025 16:43:23 03/30/20 25 03/30/2025 HEMOG LOBIN [...] >8.0% Actio n sugge sted Not Available [facility] (Lab) [address] [facility], [place], [address], 04/02/2025 16:43:23 03/30/20 25 03/30/2025 RPR SCREE N, REFLE X TITER /CONF IRMAT ION RPR qualitative Nonrea ctive nonrea ctive : Not Hispa juni or Latin o Not Available [facility] (Lab) [address] [facility], [place], [address], 04/02/2025 16:43:24 03/30/20 25 03/30/2025 LEAD, BLOOD [...] Addre ss: [address] [place] [address] Direc tor: Carlie Rivera s Not Available [facility] (Lab) [address] [facility], [place], [address], 04/02/2025 16:43:24 07/21/20 25 07/21/2025 HEMAT OCRIT (HCT) HCT 39.0 % (based on docume nted legal sex) 34.0-4 5.0 Not Available [facility] (Lab) [address] [facility], [place], [address], 07/22/2025 13:19:40 07/21/20 25 07/21/2025 HEMOG LOBIN (HGB) HGB 13.1 g/dL (based on docume nted legal sex) 11.6-1 5.4 Not Available [facility] (Lab) [address] [facility], [place], [address], 07/22/2025 13:19:40 07/21/20 25 07/21/2025 GTT - GESTA LAUREN L NELSY N, ACOG OB glucose, 1 hour screen 122 mg/dL 70-135 Not Available [facility] (Lab) [address] [facility], [place], [address], 07/22/2025 13:19:40 07/21/20 25 07/21/2025 HIV 1/2 ANTIG EN/AN TIBOD Y, REFLE X CONFI RMATI ON HIV antigen/anti body Nonrea ctive nonrea ctive HIV-1 antig en and HIV-1 /HIV- 2 antib odies were not detec luis. No labor atory evide nce of HIV infec tion. Not Available [facility] (Lab) [address] [facility], [place], [address], 07/22/2025 13:19:41 07/21/20 25 07/21/2025 RPR SCREE N, REFLE X TITER /CONF IRMAT ION RPR qualitative Nonrea ctive nonrea ctive Not Available [facility] (Lab) [address] [facility], [place], [address], 07/22/2025 13:19:41 03/30/20 25 03/30/2025 US, obste tric, nucha l trans lucen cy No observ ation record ed. [email or web address] [address], [place], [address], 03/31/2025 10:09:17 03/30/20 25 03/30/2025 US, obste tric, nucha l trans lucen cy No observ ation record ed. [email or web address] [place] [address], [place], [address], 03/30/2025 18:43:35 05/27/20 25 05/27/2025 US, obste tric, 2nd or 3rd trime ster No observ ation record ed. [facility] [address], [place], [address], 05/27/2025 13:35:00 05/27/20 25 05/27/2025 US, obste tric, 2nd or 3rd trime ster No observ ation record ed. [email or web address] [address], [place], [address], 05/27/2025 16:07:50 06/24/20 25 06/24/2025 US, obste tric, follo w-up No observ ation record ed. [facility] [address], [place], [address], 06/24/2025 17:08:43 06/24/20 25 06/24/2025 US, obste tric, follo w-up No observ ation record ed. [email or web address] [address], [place], [address], 06/24/2025 17:02:28 07/21/20 25 07/21/2025 US, obste tric, follo w-up No observ ation record ed. [facility] [address], [place], [address], 07/21/2025 15:22:55 07/21/20 25 07/21/2025 US, obste tric, follo w-up No observ ation record ed. Mel[address], [place], [address], 07/22/2025 01:37:08 08/19/20 25 08/19/2025 US, obste tric, follo w-up No observ ation record ed. [email or web address] [place] [address], [place], [address], 08/19/2025 17:07:11 08/19/20 25 08/19/2025 US, obste tric, follo w-up No observ ation record ed. AGNIESZKA Sewell [address], [place], [address], 08/22/2025 10:39:24 09/14/20 25 09/14/2025 US, obste tric, follo w-up No observ ation record ed. [email or web address] [place] [address], [place], [address], 09/14/2025 17:58:23 09/14/20 25 09/14/2025 US, obste tric, follo w-up No observ ation record ed. AGNIESZKA Sewell [address], [place], [address], 09/18/2025 09:36:54 Result Notes None recorded. Problems Name Problem SNOMED Code Status Onset Date Resolution Date Notes Provider Name and Address Organization Details Recorded Time 23068004 Active 2024 Sindy levin, [facility] 5 12:54:51 Abnormal placenta affecting management of mother 67938075 Active 2024 serial growth US RICO VAUGHN MD [address], [place], [address], [facility] 5 11:08:27 Problem Notes None recorded. Procedures Surgical History Date Name Laterality Status Provider Name and Address Organization Details Recorded Time 04/16/202 5 Date of Last Pap Smear completed Sindy Sanchez [facility] 03/03/2025 16:18:09 9 Breast reduction completed Kelley Doyle [facility] 01/26/2025 14:37:39 Imaging Results None recorded. [...] and Address Organization Details Last Updated DateTime 08/19/2025 165.1 cm 31.1 kg/m2 16725.77 g 108/69 mm[Hg] Mehreen Verdugo [facility] 08/19/2025 16:25:07 Social History Question Answer Notes LastModified by Organizat ion Details LastModified Time Tobacco Smoking Status Never Smoker Kelley Doyle [facility] 01/26/2025 14:37:11 Do You Have An Advance Directive? No Information n ot available 01/26/2025 How Many Years Have You Consumed Alcohol? 5 [email or web address] Information not available 01/26/2025 Are You Blind Or Do You Have Difficulty Seeing? No Information n ot available 01/26/2025 What Is Your Level Of Caffeine Consumption? Moderate [email or web address] Information not available 01/26/2025 In The 14 Days Before Symptom Onset, Have You Had Close Contact With A Laboratory-confirm ed COVID-19 While That Case Was Ill? No Information n ot available 01/26/2025 In The 14 Days Before Symptom Onset, Have You Had Close Contact With A Person Who Is Under Investigation For COVID-19 While That Person Was Ill? No Information not available 01/26/2025 Have You Been To An Area Known To Be High Risk For COVID-19? No [email or web address] Information not available 01/26/2025 Are You Deaf Or Do You Have Serious Difficulty Hearing? No [email or web address] Information not available 01/26/2025 What Type Of Diet Are You Following? REGULAR [email or web address] Information n ot available 01/26/2025 What Is The Highest Grade Or Level Of School You Have Completed Or The Highest Degree You Have Received? ST81142-2 [email or web address] Information not available 01/26/2025 Are There Any Guns Present In Your Home? Yes [email or web address] Information not available 01/26/2025 Have You Ever Been Counseled For Unhealthy Alcohol Use? No [email or web address] Information not available 05/27/2025 Do You Use Protection During Sex? No Information not available 01/26/2025 Do You Use Your Seat Belt Or Car Seat Routinely? Yes [email or web address] Information not available 01/26/2025 Are You Sexually Active? Yes [email or web address] Information not available 01/26/2025 Do You Have Smoke And Carbon Monoxide Detectors In Your Home? Yes [email or web address] Information not available 01/26/2025 How Much Tobacco Do You Smoke? No [email or web address] Information not available 01/26/2025 Do You Use Sunscreen Routinely? Yes Information not available 01/26/2025 Has Tobacco Cessation Counseling Been Provided? No [email or web address] Information not available 05/27/2025 Have You Used IV Drugs? No [email or web address] Information not available 01/26/2025 Do You Have Difficulty Walking Or Climbing Stairs? No [email or web address] Information not available 01/26/2025 Sex: Unknown Functional Status Question Answer Note LastModified by Organizat ion Details LastModified Time Do you use any illicit or recreational drugs? No Information not available 01/26/2025 What is your level of alcohol consumption? Occasional [email or web address] Information not available 01/26/2025 Are you currently employed? Yes [email or web address] Information not available 01/26/2025 Are you able to walk independently without assistance or assistive devices? YESWOREST [email or web address] Information not available 01/26/2025 Are you able to care for yourself independently? 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 No [email or web address] Information not available 01/26/2025 What is your exercise level? Moderate [email or web address] Information not available 01/26/2025 Mental Status Question Answer Note LastModified by Organization D etails LastModified Time Do you feel stressed (tense, restless, nervous, or anxious, or unable to sleep at night)? 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 Z3A.28 2924453 [id number] RICO VAUGHN MD [place] [address],[place] [address] 07/21/2025 09:35:34 07/21/2025 10:55:24 Abnormal placenta affecting management of mother 40103218 O43.199 89445640 - serial growth US Gestation period, 28 weeks 00028042 Z3A.28 5080388 [id number] [facility] [address],[place] [address] 08/05/2025 14:24:29 08/05/2025 14:52:26 Gestation period, 30 weeks 13739370 Z3A.30 5448376 [id number] RICO VAUGHN MD [place] [address],[place] [address] 08/19/2025 15:47:49 08/19/2025 16:29:31 Anomaly of placenta 04452886 O43.103 Z3A.32 8371597 [id number] RICO VAUGHN MD [place] [address],[place] [address] 08/19/2025 15:48:09 08/19/2025 16:58:48 Abnormal placenta affecting management of mother 61888250 O43.199 74980384 - serial growth US Gestation period, 32 weeks 0855379 Z3A.32 7782390 - continue [facility] Concerns Section Related Observation LastModified by Organization Detai ls LastModified Time None Recorded Concern Status LastModified by Organization Details LastModified Time None Recorded Payers Encounter Date Sequence Insurance Name Policy Number Policy Serrato Covered Member ID Serrato Member ID Guarantor Name 08/19/2025 1 [employer] (PPO) [id number] Eric Tolbert [id number] Renata Tolbert Notes Date Note Type Note Provider Name and Address Organization Details Recorded Time 08/19/2025 text/html Generic HPI TemplateReported by Patient RICO VAUGHN MD [address], [place], [address], [place] [facility] 08/19/2025 16:49:46 OBGyn Episode Ob Episode Information Episode Created Date Number of Fetuses Patient Bloodtype Patient rh Status Prepregnancy Weight lbs Domestic Partner Domestic Partner Phone Father Name Doctor Of Veterinary Medicine Status 03/30/20 25 1 A Positive 147 Eric OPEN Fetus Data First Name Last Name Admitted to NICU Weight (g) Sex Living Outcome Pediatric Complications Fetus ID Race Codes Race Delivery Type [id number] Problems Problem Notes Problem Name Start Date End Date Resolution Snomed Code Not e Abnormal placenta affecting management of mother 05/27/2025 [id number] serial growth U Enio Calculation Initial Enio [...] Date Ultra Sound Latest Days Gestation 0 [id number] 03/30/2025 10/12/20 25 0 Pre- Flowsheet Flowsheet Date 03/30/2025 Suresh Score Blood Edema Fundus Height Fundus Units Glucose Ketones Leukocytes Nitrite Labor Signs Protein Cervic Dilation Cervic Effacement Cervic Station Type Weight in lbs Pre/Post Dialysis Refused Weight 154.06727061173 BP Diastolic BP Location Tested BP Systolic BP Type 74 L arm 107 sitting Fetus Heart Rate Present A Present Fetus Movement A No Comments Patient presents to [facility] care. Hx of uncomplicated . otherwise uncomplicated. No nausea or cramping. NT/NB wnl today, desires NIPT. Will draw today with new OB labs. RTC 4 weeks for routine care. Flowsheet Date 04/27/2025 Suresh Score Blood Edema Fundus Height Fundus Units Glucose Ketones Leukocytes Nitrite Labor Signs Protein Cervic Dilation Cervic Effacement Cervic Station Type Weight in lbs Pre/Post Dialysis Refused Weight 160.977203135154 BP Diastolic BP Location Tested BP Systolic [...] Type Weight in lbs Pre/Post Dialysis Refused 165.961129020454 BP Diastolic BP Location Tested BP Systolic [...] Type Weight in lbs Pre/Post Dialysis Refused 174.96743421980 BP Diastolic BP Location Tested BP Systolic [...] Type Weight in lbs Pre/Post Dialysis Refused 182.459797196879 BP Diastolic BP Location Tested BP Systolic [...] Type Weight in lbs Pre/Post Dialysis Refused 186.848565789595 BP Diastolic BP Location Tested BP Systolic [...] Weight in lbs Pre/Post Dialysis Refused Weight 187.983073490266 BP Diastolic BP Location Tested BP Systolic [...] Weight in lbs Pre/Post Dialysis Refused Weight 190.309473392397 BP Diastolic BP Location Tested BP Systolic [...] Type Weight in lbs Pre/Post Dialysis Refused 194.271017905852 BP Diastolic BP Location Tested BP Systolic [...] Weight in lbs Pre/Post Dialysis Refused Weight 196.327050840307 BP Diastolic BP Location Tested BP Systolic [...] Type Weight in lbs Pre/Post Dialysis Refused 196.661083495806 BP Diastolic BP Location Tested BP Systolic [...]
--- OUTSIDE RECORDS SUMMARY | 2025-10-02 05:56 | XMS_ITS | Continuity of Care Document ---
Author Organization [facility] Address [address] [place] [address] [place] [address] Assessment No assessment recorded. Plan of Treatment Reminders Order Date Submit Date Provider Last Modified By Organization Details Last Modified Time Details Appointments OB ROUTINE 2024 08:45A M RICO VAUGHN MD Not available Not available Not available Lab None recorded . Referral None recorded . Procedures None recorded . Surgeries None recorded . Imaging US, obstetri c, follow-u p 2024 025 [email or web address] [place], [facility] [address], [address], [place], [address], 07/21/2025 17:20:52 Medication Orders None recorded . Patient TargetsNo targets recorded. Patient InstructionsNo instructions recorded. Reason for Referral None Reported. Results Created Date Observation Date Name Description Value Unit Range Abnormal Flag Note LastModifiedBy Organization Detail LastModifiedTime 04/04/2004/04/2025 [UNIT Y] ANEUP LOIDY NIPT fraction 10.6% normal Not Available [facility] [address], [place], [address], 04/04/2025 15:29:25 04/04/20 25 04/04/2025 [UNIT Y] ANEUP LOIDY NIPT 22Q11.2 microdeletio n LOW RISK <1 in 10,000 normal Not Available [facility] [address], [place], [address], 04/04/2025 15:29:25 04/04/20 25 04/04/2025 [UNIT Y] ANEUP LOIDY NIPT sex chromosome aneuploidy NOT DETECT ED normal Not Available [facility] [address], [place], [address], 04/04/2025 15:29:25 04/04/20 25 04/04/2025 [UNIT Y] ANEUP LOIDY NIPT monosomy X LOW RISK <1 in 10,000 normal Not Available [facility] [address], [place], [address], 04/04/2025 15:29:25 04/04/20 25 04/04/2025 [UNIT Y] ANEUP LOIDY NIPT trisomy 13 LOW RISK <1 in 10,000 normal Not Available [facility] [address], [place], [address], 04/04/2025 15:29:25 04/04/20 25 04/04/2025 [UNIT Y] ANEUP LOIDY NIPT trisomy 18 LOW RISK <1 in 10,000 normal Not Available [facility] [address], [place], [address], 04/04/2025 15:29:25 04/04/20 25 04/04/2025 [UNIT Y] ANEUP LOIDY NIPT trisomy 21 LOW RISK <1 in 10,000 normal Not Available [facility] [address], [place], [address], 04/04/2025 15:29:25 04/04/20 25 04/04/2025 [UNIT Y] ANEUP LOIDY NIPT sex MALE normal Not Available [facility] [address], [place], [address], 04/04/2025 15:29:25 04/04/20 25 04/04/2025 [UNIT Y] ANEUP LOIDY NIPT gestation SINGLE TON normal Not Available [facility] [address], [place], [address], 04/04/2025 15:29:25 04/04/20 25 04/04/2025 [UNIT Y] ANEUP ROSI NIPT for detailed report, see pdf See PDF normal Not Available [facility] [address], [place], [address], 04/04/2025 15:29:25 04/11/20 25 04/11/2025 [UNIT Y] THOMAS Chisholm sickle cell disease/beta -thalassemia /hemoglobino pathies carrier screen NEGATI VE normal Not Available [facility] [address], [place], [address], 04/11/2025 12:08:11 04/11/20 25 04/11/2025 [UNIT Y] THOMAS Chisholm alpha-thalas semia carrier screen NEGATI VE normal Not Available [facility] [address], [place], [address], 04/11/2025 12:08:11 04/11/20 25 04/11/2025 [UNIT Y] THOMAS Chisholm cystic fibrosis carrier screen NEGATI VE normal Not Available [facility] [address], [place], [address], 04/11/2025 12:08:11 04/11/20 25 04/11/2025 [UNIT Y] THOMAS Chisholm spinal muscular atrophy carrier screen NEGATI VE 2 SMN1 copies , SNP not presen t normal Not Available [facility] [address], [place], [address], 04/11/2025 12:08:11 04/11/20 25 04/11/2025 [UNIT Y] THOMAS Chisholm for detailed report, see pdf See PDF normal Not Available [facility] [address], [place], [address], 04/11/2025 12:08:11 03/30/20 25 03/30/2025 CULTU RE: URINE result report SEE RESULT S BELOW Test: Cultu re: Urine Speci men Sourc e: Urine Voide d Speci men Type: Urine Speci men Date: 2024 1419 Resul t Date: 2024 2343 Resul t Statu s: Final resul t Abnor mal: No Resul ting Lab: [facility] [address] [facility] [address] Tel: CULTU RE ----- ----- ----- --- Organ ism(s ) consi stent with uroge nital or skin deja . Repea t cultu re if sympt oms indic ate. Not Available [facility] (Lab) [address] [facility], [place], [address], 04/01/2025 00:46:12 03/30/2003/30/2025 CBC W/DIF F WBC 8.0 10'3/ uL 3.5-10 .5 Not Available [facility] (Lab) [address] [place], [address], 04/02/2025 16:43:21 03/30/20 25 03/30/2025 CBC W/DIF F RBC 4.19 10'6/ uL (based on docume nted legal sex) 3.80-5 .20 Not Available [facility] (Lab) [address] [place], [address], 04/02/2025 16:43:21 03/30/20 25 03/30/2025 CBC W/DIF F HGB 13.3 g/dL (based on docume nted legal sex) 11.6-1 5.4 Not Available [facility] (Lab) [address] [place], [address], 04/02/2025 16:43:21 03/30/20 25 03/30/2025 CBC W/DIF F HCT 39.6 % (based on docume nted legal sex) 34.0-4 5.0 Not Available [facility] (Lab) [address] [place], [address], 04/02/2025 16:43:21 03/30/20 25 03/30/2025 CBC W/DIF F MCV 94.5 fL 80.0-9 9.0 Not Available [facility] (Lab) [address], [place], [address], 04/02/2025 16:43:21 03/30/20 25 03/30/2025 CBC W/DIF F MCH 31.7 pg 27.0-3 4.0 Not Available [facility] (Lab) [address], [place], [address], 04/02/2025 16:43:21 03/30/20 25 03/30/2025 CBC W/DIF F MCHC 33.6 g/dL 32.0-3 5.5 Not Available [facility] (Lab) [address], [place], [address], 04/02/2025 16:43:21 03/30/20 25 03/30/2025 CBC W/DIF F RDW 12.7 % 11.0-1 5.0 Not Available [facility] (Lab) [address], [place], [address], 04/02/2025 16:43:21 03/30/20 25 03/30/2025 CBC W/DIF F plt 307 10'3/ uL 150-40 0 Not Available [facility] (Lab) [address] [place], [address], 04/02/2025 16:43:21 03/30/20 25 03/30/2025 CBC W/DIF F MPV 10.2 fL 8.8-12 .1 Not Available [facility] (Lab) [address] [place], [address], 04/02/2025 16:43:21 03/30/20 25 03/30/2025 CBC W/DIF F NRBC's 0.0 % 0.0 Not Available [facility] (Lab) [address] [facility], [place], [address], 04/02/2025 16:43:21 03/30/20 25 03/30/2025 CBC W/DIF F absolute NRBCs 0.0 10'3/ uL no refere nce range establ ished Not Available [facility] (Lab) [address] [facility], [place], [address], 04/02/2025 16:43:21 03/30/20 25 03/30/2025 CBC W/DIF F neutrophils 73.0 % 34.0-7 3.0 Not Available [facility] (Lab) [address] [facility], [place], [address], 04/02/2025 16:43:21 03/30/20 25 03/30/2025 CBC W/DIF F lymphocytes 20.3 % 15.0-5 0.0 Not Available [facility] (Lab) [address] [facility], [place], [address], 04/02/2025 16:43:21 03/30/20 25 03/30/2025 CBC W/DIF F monocytes 5.5 % 1.0-15 .0 Not Available [facility] (Lab) [address] [facility], [place], [address], 04/02/2025 16:43:21 03/30/20 25 03/30/2025 CBC W/DIF F eosinophils 0.6 % 0.0-8. 0 Not Available [facility] (Lab) [address] [facility], [place], [address], 04/02/2025 16:43:21 03/30/20 25 03/30/2025 CBC W/DIF F basophils 0.3 % 0.0-2. 0 Not Available [facility] (Lab) [address] [facility], [place], [address], 04/02/2025 16:43:21 03/30/20 25 03/30/2025 CBC W/DIF [...] separ ately if prese nt. Not Available [facility] (Lab) [address] [facility], [place], [address], 04/02/2025 16:43:21 03/30/20 25 03/30/2025 CBC W/DIF F absolute neutrophils 5.8 10'3/ uL 1.5-8. 0 Not Available [facility] (Lab) [address] [facility], [place], [address], 04/02/2025 16:43:21 03/30/20 25 03/30/2025 CBC W/DIF F absolute lymphocytes 1.6 10'3/ uL 1.0-4. 0 Not Available [facility] (Lab) [address] [facility], [place], [address], 04/02/2025 16:43:21 03/30/20 25 03/30/2025 CBC W/DIF F absolute monocytes 0.4 10'3/ uL 0.2-1. 0 Not Available [facility] (Lab) [address] [facility], [place], [address], 04/02/2025 16:43:21 03/30/20 25 03/30/2025 CBC W/DIF F absolute eosinophils 0.1 10'3/ uL 0.0-0. 6 Not Available [facility] (Lab) [address] [facility], [place], [address], 04/02/2025 16:43:21 03/30/20 25 03/30/2025 CBC W/DIF F absolute basophils 0.0 10'3/ uL 0.0-0. 3 Not Available [facility] (Lab) [address] [facility], [place], [address], 04/02/2025 16:43:21 03/30/2003/30/2025 CBC W/DIF F absolute immature granulocytes 0.0 10'3/ uL 0.00-0 .10 : Not Hispa juni or Latin o Refer ence range s for nonbi nary/ inter sex or unspe cifie d gende r patie nts have not been estab lishe d. Pleas e [facility] for range s estab lishe d for cisge nder patie nts and evalu ate in the clini mohit yong xt of the indiv idual patie nt: https ://la bhand book. nm.or g/gen derx Not Available [facility] (Lab) [address], [place], [address], 04/02/2025 16:43:21 03/30/2003/30/2025 HEPAT ITIS C ANTIB CLAUDETTE SCREE N, REFLE X TO CONFI RMATI ON hepatitis C antibody Non-re active non-re active Antib odies to HCV Not Detec luis, does not exclu de the possi bilit y of expos ure to HCV. : Not Hispa juni or Latin o Not Available [facility] (Lab) [address], [place], [address], 04/02/2025 16:43:21 03/30/2003/30/2025 HEPAT ITIS B SURFA [...] Hispa juni or Latin o Not Available [facility] (Lab) [address], [place], [address], 04/02/2025 16:43:22 03/30/2003/30/2025 HIV 1/2 ANTIG EN/AN TIBOD Y, REFLE X CONFI RMATI ON HIV antigen/anti body Nonrea ctive nonrea ctive : Not Hispa juni or Latin o HIV-1 antig en and HIV-1 /HIV- 2 antib odies were not detec luis. No labor atory evide nce of HIV infec tion. Not Available [facility] (Lab) [address] [facility], [place], [address], 04/02/2025 16:43:22 03/30/20 25 03/30/2025 TYPE/ RH/SC REEN ABO/Rh type A POS Not Available [facility] (Lab) [address] [facility], [place], [address], 04/02/2025 16:43:23 03/30/20 25 03/30/2025 TYPE/ RH/SC REEN antibody screen NEG Not Available [facility] (Lab) [address] [facility], [place], [address], 04/02/2025 16:43:23 03/30/20 25 03/30/2025 TYPE/ RH/SC REEN exp date 2024 23:59 Not Available [facility] (Lab) [address] [facility], [place], [address], 04/02/2025 16:43:23 03/30/20 25 03/30/2025 RUBEL LA IGG ANTIB CLAUDETTE, QUANT rubella antibodies, IgG Reacti ve reacti ve Not Available [facility] (Lab) [address] [facility], [place], [address], 04/02/2025 16:43:23 03/30/20 25 03/30/2025 RUBEL LA IGG ANTIB CLAUDETTE, QUANT rubella antibodies, IgG quant 20.6 IU/mL >=10 : Not Hispa juni or Latin o Non-r eacti ve (Non- Immun e) <10 IU/mL React luli (Immu ne) > or = 10 IU/mL Not Available [facility] (Lab) [address] [facility], [place], [address], 04/02/2025 16:43:23 03/30/20 25 03/30/2025 HEMOG LOBIN A1C hemoglobin A1C 5.0 % 4.0-5. 6 : Not Hispa juni or Latin o The Ameri can Diabe manuela Assoc iatio n recom mends that a prima ry goal of thera py shoul d be a HBA1C of < 7% and that physi cians shoul d reeva luate the treat ment regim en in patie nts with HBA1C value s consi stent ly > 8%. <5.7% Priyanka l 5.7 - 6.4% Incre ased risk for diabe manuela >=6.5 % Diagn ostic of diabe manuela <7.0% Goal of thera py >8.0% Actio n sugge sted Not Available [facility] (Lab) [address] [facility], [place], [address], 04/02/2025 16:43:23 03/30/20 25 03/30/2025 RPR SCREE N, REFLE X TITER /CONF IRMAT ION RPR qualitative Nonrea ctive nonrea ctive : Not Hispa juni or Latin o Not Available [facility] (Lab) [address] [facility], [place], [address], 04/02/2025 16:43:24 03/30/20 25 03/30/2025 LEAD, BLOOD (ADUL T/PED IATRI C) lead, whole blood <1.0 mcg/d L <3.5 See Note 1 Héctor sis was perfo rmed by Stephani Burrows ed Plasm a Mass Spect romet ry (ICPM S) Note 1 This test was devel oped and its héctor tical perfo rmanc e rubens cteri stics have been deter mined by [employer]. It has not been clear ed or appro ahmet by the FDA. This assay has been valid ated pursu ant to the CLIA regul ation s and is used for clini mohit purpo ses. : Not Hispa juni or Latin o Perfo rming Organ izati on Infor matio n: Site ID: CB Name: [employer] o[employer] s-Reid ayo Resendez Addre ss: [id number] [place] [address] Direc tor: Carlie Rivera s Not Available [facility] (Lab) [address] [facility], [place], [address], 04/02/2025 16:43:24 07/21/2007/21/2025 HEMAT OCRIT (HCT) HCT 39.0 % (based on docume nted legal sex) 34.0-4 5.0 Not Available [facility] (Lab) [address] [facility], [place], [address], 07/22/2025 13:19:40 07/21/20 25 07/21/2025 HEMOG LOBIN (HGB) HGB 13.1 g/dL (based on docume nted legal sex) 11.6-1 5.4 Not Available [facility] (Lab) [address] [facility], [place], [address], 07/22/2025 13:19:40 07/21/20 25 07/21/2025 GTT - GESTA LAUREN L NELSY Chisholm, ACOG OB glucose, 1 hour screen 122 mg/dL 70-135 Not Available [facility] (Lab) [address], [place], [address], 07/22/2025 13:19:40 07/21/2007/21/2025 HIV 1/2 ANTIG EN/AN TIBOD Y, REFLE X CONFI RMATI ON HIV antigen/anti body Nonrea ctive nonrea ctive HIV-1 antig en and HIV-1 /HIV- 2 antib odies were not detec luis. No labor atory evide nce of HIV infec tion. Not Available [facility] (Lab) [address] [facility], [place], [address], 07/22/2025 13:19:41 07/21/2007/21/2025 RPR SCREE N, REFLE X TITER /CONF IRMAT ION RPR qualitative Nonrea ctive nonrea ctive Not Available [facility] (Lab) [address] [facility], [place], [address], 07/22/2025 13:19:41 03/30/20 25 03/30/2025 US, obste tric, nucha l trans lucen cy No observ ation record ed. [email or web address] [address], [place], [address], 03/31/2025 10:09:17 03/30/20 25 03/30/2025 US, obste tric, nucha l trans lucen cy No observ ation record ed. [email or web address] [place] [address] [address], [place], [address], 03/30/2025 18:43:35 05/27/20 25 05/27/2025 US, obste tric, 2nd or 3rd trime ster No observ ation record ed. [facility] [address], [place], [address], 05/27/2025 13:35:00 05/27/20 25 05/27/2025 US, obste tric, 2nd or 3rd trime ster No observ ation record ed. [email or web address] [address], [place], [address], 05/27/2025 16:07:50 06/24/20 25 06/24/2025 US, obste tric, follo w-up No observ ation record ed. [facility] [address], [place], [address], 06/24/2025 17:08:43 06/24/20 25 06/24/2025 US, obste tric, follo w-up No observ ation record ed. [email or web address] [place] [address], [place], [address], 06/24/2025 17:02:28 07/21/20 25 07/21/2025 US, obste tric, follo w-up No observ ation record ed. [facility] [address], [place], [address], 07/21/2025 15:22:55 07/21/20 25 07/21/2025 US, obste tric, follo w-up No observ ation record ed. Mel[address]ie [address], [place], [address], 07/22/2025 01:37:08 08/19/20 25 08/19/2025 US, obste tric, follo w-up No observ ation record ed. [email or web address] [place] [address], [place], [address], 08/19/2025 17:07:11 08/19/20 25 08/19/2025 US, obste tric, follo w-up No observ ation record ed. [email or web address] Chanele [address], [place], [address], 08/22/2025 10:39:24 09/14/20 25 09/14/2025 US, obste tric, follo w-up No observ ation record ed. [email or web address] [place] [address], [place], [address], 09/14/2025 17:58:23 09/14/20 25 09/14/2025 US, obste tric, follo w-up No observ ation record ed. [email or web address] Sewell [address], [place], [address], 09/18/2025 09:36:54 Result Notes None recorded. Problems Name Problem SNOMED Code Status Onset Date Resolution Date Notes Provider Name and Address Organization Details Recorded Time 50683981 Active 2024 Sindy Sanchez [facility] [place] - [facility] 12:54:51 Abnormal placenta affecting management of mother 99949567 Active 2024 serial growth US RICO VAUGHN MD [address], [place], [address], [place] [facility] 5 11:08:27 Problem Notes None recorded. Procedures Surgical History Date Name Laterality Status Provider Name and Address Organization Details Recorded Time 5 Date of Last Pap Smear completed Sindy Sanchez [facility] 03/03/2025 16:18:09 9 Breast reduction completed Kelley Doyle [facility] 01/26/2025 14:37:39 Imaging Results None [...] Not Available Vitals Date Recorded Body weight Systolic And Diastolic Provider Name and Address Organization Details Last Updated DateTime 07/21/2025 89799.85260 g 96/62 mm[Hg] Mehreen Verdugo [facility] 07/21/2025 10:38:49 Social History Question Answer Notes LastModified by Organizat ion Details LastModified Time Tobacco Smoking Status [facility] 01/26/2025 14:37:11 Do You Have An Advance Directive? No [email or web address] Information n ot available 01/26/2025 How Many Years Have You Consumed Alcohol? 5 [email or web address] Information not available 01/26/2025 Are You Blind Or Do You Have Difficulty Seeing? No Information n ot available 01/26/2025 What Is Your Level Of Caffeine Consumption? Moderate Information not available 01/26/2025 In The 14 Days Before Symptom Onset, Have You Had Close Contact With A Laboratory-confirm ed COVID-19 While That Case Was Ill? No [email or web address] Information n ot available 01/26/2025 In The 14 Days Before Symptom Onset, Have You Had Close Contact With A Person Who Is Under Investigation For COVID-19 While That Person Was Ill? No [email or web address] Information not available 01/26/2025 Have You Been To An Area Known To Be High Risk For COVID-19? No Information not available 01/26/2025 Are You Deaf Or Do You Have Serious Difficulty Hearing? No [email or web address] Information not available 01/26/2025 What Type Of Diet Are You Following? REGULAR [email or web address] Information n ot available 01/26/2025 What Is The Highest Grade Or Level Of School You Have Completed Or The Highest Degree You Have Received? [id number] [email or web address] Information not available 01/26/2025 Are There Any Guns Present In Your Home? Yes [email or web address] Information not available 01/26/2025 Have You Ever Been Counseled For Unhealthy Alcohol Use? No [email or web address] Information not available 05/27/2025 Do You Use Protection During Sex? No [email or web address] Information not available 01/26/2025 Do You Use Your Seat Belt Or Car Seat Routinely? Yes [email or web address] Information not available 01/26/2025 Are You Sexually Active? Yes Information not available 01/26/2025 Do You Have Smoke And Carbon Monoxide Detectors In Your Home? Yes Information not available 01/26/2025 How Much Tobacco Do You Smoke? No Information not available 01/26/2025 Do You Use Sunscreen Routinely? Yes [email or web address] Information not available 01/26/2025 Has Tobacco Cessation Counseling Been Provided? No [email or web address] Information not available 05/27/2025 Have You Used IV Drugs? No [email or web address] Information not available 01/26/2025 Do You Have Difficulty Walking Or Climbing Stairs? No [email or web address] Information not available 01/26/2025 Sex: Unknown Functional Status Question Answer Note LastModified by Organizat ion Details LastModified Time Do you use any illicit or recreational drugs? No [email or web address] Information not available 01/26/2025 What is your level of alcohol consumption? Occasional [email or web address] Information not available 01/26/2025 Are you currently employed? Yes Information not available 01/26/2025 Are you able to walk independently without assistance or assistive devices? YESWOREST [email or web address] Information not available 01/26/2025 Are you able to care for yourself independently? 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 No Information not available 01/26/2025 What is your exercise level? Moderate [email or web address] Information not available 01/26/2025 Mental Status Question Answer Note LastModified by Organization D etails LastModified Time Do you feel stressed (tense, restless, nervous, or anxious, or unable to sleep at night)? [id number] [email or web address] Information not available 01/26/2025 Family History Relationship Description Onset Age of this Age Resolved Age Notes LastModified by Organization Details LastModified Time Mother Malignant neoplasm of breast 41 Double mastec marium - stage 1 [email or web address] Not available 07/21/2025 09:35:24 Mother Malignant neoplasm of breast [email or web address] Not available 2024 10:54:50 Medical History Condition [...] ICD10 Code Diagnosis IMO Codes Diagnosis Note [id number] RICO VAUGHN MD [place] [address],[place] [address] 06/24/2025 15:49:13 06/24/2025 16:29:01 Abnormal placenta affecting management of mother 74108800 O43.193 Z3A.24 89863505 - serial growth [place] [id number] RICO VAUGHN MD [place] [address],[place] [address] 06/24/2025 15:49:30 06/24/2025 16:57:41 Abnormal placenta affecting management of mother 02910455 O43.199 59220995 - serial growth US Gestation period, 24 weeks 450143959 Z3A.24 6711121 - continue PNV [id number] RICO VAUGHN MD [place] [address],[place] [address] 07/21/2025 09:35:16 07/21/2025 10:32:24 Anomaly of placenta 78966122 O43.103 Z3A.28 4803878 [id number] RICO VAUGHN MD [place] [address],[place] [address] 07/21/2025 09:35:34 07/21/2025 10:55:24 Abnormal placenta affecting management of mother 97068699 O43.199 91888317 - serial growth US Gestation period, 28 weeks 66735167 Z3A.28 [id number] Health Concerns Section Related Observation LastModified by Organization Detai ls LastModified Time None Recorded Concern Status LastModified by Organization Details LastModified Time None Recorded Payers Encounter Date Sequence Insurance Name Policy Number Policy Serrato Covered Member ID Serrato Member ID Guarantor Name 07/21/2025 1 [employer] [id number] Eric Tolbert [id number] Renata Tolbert Notes Date Note Type Note Provider Name and Address Organization Details Recorded Time 07/21/2025 text/html Generic HPI TemplateReported by Patient RICO VAUGHN MD [address], [place], [address], [place] [facility] 07/21/2025 10:55:17 OBGyn Episode Ob Episode Information Episode Created Date Number of Fetuses Patient Bloodtype Patient rh Status Prepregnancy Weight lbs Domestic Partner Domestic Partner Phone Father Name Master [employer] Status 03/30/20 25 1 A Positive 147 Eric OPEN Fetus Data First Name Last Name Admitted to NICU Weight (g) Sex Living Outcome Pediatric Complications Fetus ID Race Codes Race Delivery Type [id number] Problems Problem Notes Problem Name Start Date End Date Resolution Snomed Code Not e Abnormal placenta affecting management of mother 05/27/2025 [id number] serial growth U Enio Calculation Initial Enio [...] Date Ultra Sound Latest Days Gestation 0 [email or web address] 03/30/2025 10/12/20 25 0 Pre- Flowsheet Flowsheet Date 03/30/2025 Suresh Score Blood Edema Fundus Height Fundus Units Glucose Ketones Leukocytes Nitrite Labor Signs Protein Cervic Dilation Cervic Effacement Cervic Station Type Weight in lbs Pre/Post Dialysis Refused Weight 154.83317928140 BP Diastolic BP Location Tested BP Systolic BP Type 74 L arm 107 sitting Fetus Heart Rate Present A Present Fetus Movement A No Comments Patient presents to [facility] care. Hx of uncomplicated . otherwise uncomplicated. No nausea or cramping. NT/NB wnl today, desires NIPT. Will draw today with new OB labs. RTC 4 weeks for routine care. Flowsheet Date 04/27/2025 Suresh Score Blood Edema Fundus Height Fundus Units Glucose Ketones Leukocytes Nitrite Labor Signs Protein Cervic Dilation Cervic Effacement Cervic Station Type Weight in lbs Pre/Post Dialysis Refused Weight [id number] BP Diastolic BP Location Tested BP Systolic [...] Type Weight in lbs Pre/Post Dialysis Refused [id number] BP Diastolic BP Location Tested BP Systolic [...] Type Weight in lbs Pre/Post Dialysis Refused 174.50932891549 BP Diastolic BP Location Tested BP Systolic [...] Type Weight in lbs Pre/Post Dialysis Refused 182.677094648969 BP Diastolic BP Location Tested BP Systolic [...] Type Weight in lbs Pre/Post Dialysis Refused [id number] BP Diastolic BP Location Tested BP Systolic [...] Weight in lbs Pre/Post Dialysis Refused Weight 187.580823116254 BP Diastolic BP Location Tested BP Systolic [...] Weight in lbs Pre/Post Dialysis Refused Weight 190.208568718064 BP Diastolic BP Location Tested BP Systolic [...] Type Weight in lbs Pre/Post Dialysis Refused 194.284478157392 BP Diastolic BP Location Tested BP Systolic [...] Weight in lbs Pre/Post Dialysis Refused Weight 196.439071331586 BP Diastolic BP Location Tested BP Systolic [...] Type Weight in lbs Pre/Post Dialysis Refused 196.844586709797 BP Diastolic BP Location Tested BP Systolic [...]
--- OUTSIDE RECORDS SUMMARY | 2025-10-02 05:56 | XMS_ITS | Continuity of Care Document ---
Author Organization [facility] Address [address] [place] [address] [place] [address] Assessment Encounter Date Assessment Date Assessment LastModified [...] LOIDY NIPT fraction 10.6% normal Not Available Kristie bowers [address], [place], [address], 04/04/2025 15:29:25 04/04/20 25 04/04/2025 [UNIT Y] ANEUP LOIDY NIPT 22Q11.2 microdeletio n LOW RISK <1 in 10,000 normal Not Available Myra pruitt [address], [place], [address], 04/04/2025 15:29:25 04/04/20 25 04/04/2025 [UNIT Y] ANEUP LOIDY NIPT sex chromosome aneuploidy NOT DETECT ED normal Not Available [facility] [address], [place], [address], 04/04/2025 15:29:25 04/04/20 25 04/04/2025 [UNIT Y] ANEUP LOIDY NIPT monosomy X LOW RISK <1 in 10,000 normal Not Available [facility] [address], [place], [address], 04/04/2025 15:29:25 04/04/20 25 04/04/2025 [UNIT Y] ANEUP LOIDY NIPT trisomy 13 LOW RISK <1 in 10,000 normal Not Available [facility] [address], [place], [address], 04/04/2025 15:29:25 04/04/20 25 04/04/2025 [UNIT Y] ANEUP LOIDY NIPT trisomy 18 LOW RISK <1 in 10,000 normal Not Available [facility] [address], [place], [address], 04/04/2025 15:29:25 04/04/20 25 04/04/2025 [UNIT Y] ANEUP LOIDY NIPT trisomy 21 LOW RISK <1 in 10,000 normal Not Available [facility] [address], [place], [address], 04/04/2025 15:29:25 04/04/20 25 04/04/2025 [UNIT Y] ANEUP LOIDY NIPT sex MALE normal Not Available [facility] [address], [place], [address], 04/04/2025 15:29:25 04/04/20 25 04/04/2025 [UNIT Y] ANEUP LOIDY NIPT gestation SINGLE TON normal Not Available [facility] [address], [place], [address], 04/04/2025 15:29:25 04/04/20 25 04/04/2025 [UNIT Y] ANEUP ROSI NIPT for detailed report, see pdf See PDF normal Not Available [facility] [address], [place], [address], 04/04/2025 15:29:25 04/11/20 25 04/11/2025 [UNIT Y] THOMAS KAIA [place] N sickle cell disease/beta -thalassemia /hemoglobino pathies carrier screen NEGATI VE normal Not Available [facility] [address], [place], [address], 04/11/2025 12:08:11 04/11/20 25 04/11/2025 [UNIT Y] THOMAS ER SCREValentina N alpha-thalas semia carrier screen NEGATI VE normal Not Available [facility] [address], [place], [address], 04/11/2025 12:08:11 04/11/20 25 04/11/2025 [UNIT Y] THOMAS KAIA [place] N cystic fibrosis carrier screen NEGATI VE normal Not Available [facility] [address], [place], [address], 04/11/2025 12:08:11 04/11/20 25 04/11/2025 [UNIT Y] THOMAS KAIA GAGEValentina N spinal muscular atrophy carrier screen NEGATI VE 2 SMN1 copies , SNP not presen t normal Not Available [facility] [address], [place], [address], 04/11/2025 12:08:11 04/11/20 25 04/11/2025 [UNIT Y] THOMAS KAIA Chisholm for detailed report, see pdf See PDF normal Not Available [facility] [address], [place], [address], 04/11/2025 12:08:11 03/30/20 25 03/30/2025 CULTU RE: URINE result report SEE RESULT S BELOW Test: Cultu re: Urine Speci men Sourc e: Urine Voide d Speci men Type: Urine Speci men Date: 2024 1419 Resul t Date: 2024 2343 Resul t Statu s: Final resul t Abnor mal: No Resul ting Lab: [facility] [address] [facility] [address] Tel: CULTU RE ----- ----- ----- --- Organ ism(s ) consi stent with uroge nital or skin deja . Repea t cultu re if sympt oms indic ate. Not Available [facility] (Lab) [address] [address], [place], [address], 04/01/2025 00:46:12 03/30/20 25 03/30/2025 CBC W/DIF F WBC 8.0 10'3/ uL 3.5-10 .5 Not Available [facility] (Lab) [address] [place], [address], 04/02/2025 16:43:21 03/30/20 25 03/30/2025 CBC W/DIF F RBC 4.19 10'6/ uL (based on docume nted legal sex) 3.80-5 .20 Not Available [facility] (Lab) [address] [place], [address], 04/02/2025 16:43:21 03/30/20 25 03/30/2025 CBC W/DIF F HGB 13.3 g/dL (based on docume nted legal sex) 11.6-1 5.4 Not Available [facility] (Lab) [address] [place], [address], 04/02/2025 16:43:21 03/30/20 25 03/30/2025 CBC W/DIF F HCT 39.6 % (based on docume nted legal sex) 34.0-4 5.0 Not Available [facility] (Lab) [address] [place], [address], 04/02/2025 16:43:21 03/30/20 25 03/30/2025 CBC W/DIF F MCV 94.5 fL 80.0-9 9.0 Not Available [facility] (Lab) [address], [place], [address], 04/02/2025 16:43:21 03/30/20 25 03/30/2025 CBC W/DIF F MCH 31.7 pg 27.0-3 4.0 Not Available [facility] (Lab) [address], [place], [address], 04/02/2025 16:43:21 03/30/20 25 03/30/2025 CBC W/DIF F MCHC 33.6 g/dL 32.0-3 5.5 Not Available [facility] (Lab) [address], [place], [address], 04/02/2025 16:43:21 03/30/20 25 03/30/2025 CBC W/DIF F RDW 12.7 % 11.0-1 5.0 Not Available [facility] (Lab) [address], [place], [address], 04/02/2025 16:43:21 03/30/20 25 03/30/2025 CBC W/DIF F plt 307 10'3/ uL 150-40 0 Not Available [facility] (Lab) [address], [place], [address], 04/02/2025 16:43:21 03/30/20 25 03/30/2025 CBC W/DIF F MPV 10.2 fL 8.8-12 .1 Not Available [facility] (Lab) [address], [place], [address], 04/02/2025 16:43:21 03/30/20 25 03/30/2025 CBC W/DIF F NRBC's 0.0 % 0.0 Not Available [facility] (Lab) [address], [place], [address], 04/02/2025 16:43:21 03/30/20 25 03/30/2025 CBC W/DIF F absolute NRBCs 0.0 10'3/ uL no refere nce range establ ished Not Available [facility] (Lab) [address], [place], [address], 04/02/2025 16:43:21 03/30/20 25 03/30/2025 CBC W/DIF F neutrophils 73.0 % 34.0-7 3.0 Not Available [facility] (Lab) [address], [place], [address], 04/02/2025 16:43:21 03/30/20 25 03/30/2025 CBC W/DIF F lymphocytes 20.3 % 15.0-5 0.0 Not Available [facility] (Lab) [address], [place], [address], 04/02/2025 16:43:21 03/30/20 25 03/30/2025 CBC W/DIF F monocytes 5.5 % 1.0-15 .0 Not Available [facility] (Lab) [address], [place], [address], 04/02/2025 16:43:21 03/30/20 25 03/30/2025 CBC W/DIF F eosinophils 0.6 % 0.0-8. 0 Not Available [facility] (Lab) [address] [place], [address], 04/02/2025 16:43:21 03/30/20 25 03/30/2025 CBC W/DIF F basophils 0.3 % 0.0-2. 0 Not Available [facility] (Lab) [address], [place], [address], 04/02/2025 16:43:21 03/30/20 25 03/30/2025 CBC W/DIF [...] separ ately if prese nt. Not Available [facility] (Lab) [address], [place], [address], 04/02/2025 16:43:21 03/30/20 25 03/30/2025 CBC W/DIF F absolute neutrophils 5.8 10'3/ uL 1.5-8. 0 Not Available [facility] (Lab) [address], [place], [address], 04/02/2025 16:43:21 03/30/20 25 03/30/2025 CBC W/DIF F absolute lymphocytes 1.6 10'3/ uL 1.0-4. 0 Not Available [facility] (Lab) [address], [place], [address], 04/02/2025 16:43:21 03/30/20 25 03/30/2025 CBC W/DIF F absolute monocytes 0.4 10'3/ uL 0.2-1. 0 Not Available [facility] (Lab) [address], [place], [address], 04/02/2025 16:43:21 03/30/20 25 03/30/2025 CBC W/DIF F absolute eosinophils 0.1 10'3/ uL 0.0-0. 6 Not Available [facility] (Lab) [address], [place], [address], 04/02/2025 16:43:21 03/30/2003/30/2025 CBC W/DIF F absolute basophils 0.0 10'3/ uL 0.0-0. 3 Not Available [facility] (Lab) [address], [place], [address], 04/02/2025 16:43:21 03/30/2003/30/2025 CBC W/DIF F absolute immature granulocytes 0.0 10'3/ uL 0.00-0 .10 : Not Hispa juni or Latin o Refer ence range s for nonbi nary/ inter sex or unspe cifie d gende r patie nts have not been estab lishe d. Pleas e refer to the [facility] wing table for range s estab lishe d for cisge nder patie nts and evalu ate in the clini mohit yong xt of the indiv idual patie nt: https ://la bhand book. nm.or g/gen derx Not Available [facility] (Lab) [address], [place], [address], 04/02/2025 16:43:21 03/30/2003/30/2025 HEPAT ITIS C ANTIB CLAUDETTE SCREE N, REFLE X TO CONFI RMATI ON hepatitis C antibody Non-re active non-re active Antib odies to HCV Not Detec luis, does not exclu de the possi bilit y of expos ure to HCV. : Not Hispa juni or Latin o Not Available [facility] (Lab) [address], [place], [address], 04/02/2025 16:43:21 03/30/2003/30/2025 HEPAT ITIS B SURFA [...] Hispa juni or Latin o Not Available [facility] (Lab) [address], [place], [address], 04/02/2025 16:43:22 03/30/2003/30/2025 HIV 1/2 ANTIG EN/AN TIBOD Y, REFLE X CONFI RMATI ON HIV antigen/anti body Nonrea ctive nonrea ctive : Not Hispa juni or Latin o HIV-1 antig en and HIV-1 /HIV- 2 antib odies were not detec luis. No labor atory evide nce of HIV infec tion. Not Available [facility] (Lab) [address], [place], [address], 04/02/2025 16:43:22 03/30/20 25 03/30/2025 TYPE/ RH/SC REEN ABO/Rh type A POS Not Available [facility] (Lab) [address], [place], [address], 04/02/2025 16:43:23 03/30/20 25 03/30/2025 TYPE/ RH/SC REEN antibody screen NEG Not Available [facility] (Lab) [address], [place], [address], 04/02/2025 16:43:23 03/30/20 25 03/30/2025 TYPE/ RH/SC REEN exp date 2024 23:59 Not Available [facility] (Lab) [address], [place], [address], 04/02/2025 16:43:23 03/30/20 25 03/30/2025 RUBEL LA IGG ANTIB CLAUDETTE, QUANT rubella antibodies, IgG Reacti ve reacti ve Not Available [facility] (Lab) [address], [place], [address], 04/02/2025 16:43:23 03/30/20 25 03/30/2025 RUBEL LA IGG ANTIB CLAUDETTE, QUANT rubella antibodies, IgG quant 20.6 IU/mL >=10 : Not Hispa juni or Latin o Non-r eacti ve (Non- Immun e) <10 IU/mL React luli (Immu ne) > or = 10 IU/mL Not Available [facility] (Lab) [address], [place], [address], 04/02/2025 16:43:23 03/30/20 25 03/30/2025 HEMOG LOBIN [...] >8.0% Actio n sugge sted Not Available [facility] (Lab) [address], [place], [address], 04/02/2025 16:43:23 03/30/20 25 03/30/2025 RPR SCREE N, REFLE X TITER /CONF IRMAT ION RPR qualitative Nonrea ctive nonrea ctive : Not Hispa juni or Latin o Not Available [facility] (Lab) [address], [place], [address], 04/02/2025 16:43:24 03/30/20 25 03/30/2025 LEAD, BLOOD (ADUL T/PED IATRI C) lead, whole blood <1.0 mcg/d L <3.5 See Note 1 Héctor sis was perfo rmed by Stephani Burrows ed Plasm a Mass Spect romet ry (ICPM S) Note 1 This test was devel oped and its héctor tical perfo rmanc e rubens cteri stics have been deter mined by [employer]. It has not been clear ed or appro ahmet by the FDA. This assay has been valid ated pursu ant to the CLIA regul ation s and is used for clini mohit purpo ses. : Not Hispa juni or Latin o Perfo rming Organ izati on Infor matio n: Site ID: CB Name: [employer] [facility]-[place] Resendez Addre ss: [address] [place] [address] Direc tor: Carlie ny V Nicole s Not Available [facility] (Lab) [address], [place], [address], 04/02/2025 16:43:24 07/21/2007/21/2025 HEMAT OCRIT (HCT) HCT 39.0 % (based on docume nted legal sex) 34.0-4 5.0 Not Available [facility] (Lab) [address], [place], [address], 07/22/2025 13:19:40 07/21/20 25 07/21/2025 HEMOG LOBIN (HGB) HGB 13.1 g/dL (based on docume nted legal sex) 11.6-1 5.4 Not Available [facility] (Lab) [address], [place], [address], 07/22/2025 13:19:40 07/21/20 25 07/21/2025 GTT - GESTA LAUREN L NELSY N, ACOG OB glucose, 1 hour screen 122 mg/dL 70-135 Not Available [facility] (Lab) [address] [place], [address], 07/22/2025 13:19:40 07/21/20 25 07/21/2025 HIV 1/2 ANTIG EN/AN TIBOD Y, REFLE X CONFI RMATI ON HIV antigen/anti body Nonrea ctive nonrea ctive HIV-1 antig en and HIV-1 /HIV- 2 antib odies were not detec luis. No labor atory evide nce of HIV infec tion. Not Available [facility] (Lab) [address], [place], [address], 07/22/2025 13:19:41 07/21/20 25 07/21/2025 RPR SCREE N, REFLE X TITER /CONF IRMAT ION RPR qualitative Nonrea ctive nonrea ctive Not Available [facility] (Lab) [address] [place], [address], 07/22/2025 13:19:41 09/14/20 25 09/14/2025 CULTU RE: [...] Resul ting Lab: [facility] [address] [facility] [address] Tel: CULTU RE ----- ----- ----- --- No Group B strep isola luis at 2 days (toyin ctive broth enhan cemen t) Not Available [facility] (Lab) [address], [place], [address], 09/17/2025 15:27:26 03/30/20 25 03/30/2025 US, obste tric, nucha l trans lucen cy No observ ation record ed. [email or web address] Melodie [address] [address], [place], [address], 03/31/2025 10:09:17 03/30/20 25 03/30/2025 US, obste tric, nucha l trans lucen cy No observ ation record ed. [email or web address] [place] [address], [place], [address], 03/30/2025 18:43:35 05/27/20 25 05/27/2025 US, obste tric, 2nd or 3rd trime ster No observ ation record ed. [email or web address] [place] [address], [place], [address], 05/27/2025 13:35:00 05/27/20 25 05/27/2025 US, obste tric, 2nd or 3rd trime ster No observ ation record ed. [email or web address] Melodie [address], [place], [address], 05/27/2025 16:07:50 06/24/20 25 06/24/2025 US, obste tric, follo w-up No observ ation record ed. [facility] [address], [place], [address], 06/24/2025 17:08:43 06/24/20 25 06/24/2025 US, obste tric, follo w-up No observ ation record ed. [email or web address] Melodie [address], [place], [address], 06/24/2025 17:02:28 07/21/20 25 07/21/2025 US, obste tric, follo w-up No observ ation record ed. [facility] [address], [place], [address], 07/21/2025 15:22:55 07/21/20 25 07/21/2025 US, obste tric, follo w-up No observ ation record ed. [email or web address] Melodie [address], [place], [address], 07/22/2025 01:37:08 08/19/20 25 08/19/2025 US, obste tric, follo w-up No observ ation record ed. [email or web address] [place] [address], [place], [address], 08/19/2025 17:07:11 08/19/20 25 08/19/2025 US, obste tric, follo w-up No observ ation record ed. [email or web address] Melodie [address], [place], [address], 08/22/2025 10:39:24 09/14/20 25 09/14/2025 US, obste tric, follo w-up No observ ation record ed. [email or web address] [place] [address], [place], [address], 09/14/2025 17:58:23 09/14/20 25 09/14/2025 US, obste tric, follo w-up No observ ation record ed. [email or web address] Chanele [address], [place], [address], 09/18/2025 09:36:54 Result Notes None recorded. Problems Name Problem SNOMED Code Status Onset Date Resolution Date Notes Provider Name and Address Organization Details Recorded Time 88188470 Active 2024 Sindy Sanchez [facility], [facility] 5 12:54:51 Abnormal placenta affecting management of mother 49225738 Active 2024 serial growth RICO VAUGHN MD [address], [place], [address], [facility] 5 11:08:27 Problem Notes None recorded. Procedures Surgical History Date Name Laterality Status Provider Name and Address Organization Details Recorded Time 5 Date of Last Pap Smear completed Sindy Sanchez [facility] 03/03/2025 16:18:09 9 Breast reduction completed Kelley Doyle [facility] 01/26/2025 14:37:39 Imaging Results None recorded. [...] Address Organization Details Last Updated DateTime 09/30/2025 88925.104 52 g 32.6 kg/m2 165.1 cm 105/71 mm[Hg] Mehreen Verdugo [facility] 09/30/2025 10:43:12 Social History Question Answer Notes LastModified by Organizat ion Details LastModified Time Tobacco Smoking Status Never Smoker Kelley Doyle ollie, [facility] 01/26/2025 14:37:11 Do You Have An Advance Directive? No [email or web address] Information n ot available 01/26/2025 How Many Years Have You Consumed Alcohol? 5 [email or web address] Information not available 01/26/2025 Are You Blind Or Do You Have Difficulty Seeing? No [email or web address] Information n ot available 01/26/2025 What Is Your Level Of Caffeine Consumption? Moderate [email or web address] Information not available 01/26/2025 In The 14 Days Before Symptom Onset, Have You Had Close Contact With A Laboratory-confirm ed COVID-19 While That Case Was Ill? No [email or web address] Information n ot available 01/26/2025 In The 14 Days Before Symptom Onset, Have You Had Close Contact With A Person Who Is Under Investigation For COVID-19 While That Person Was Ill? No [email or web address] Information not available 01/26/2025 Have You Been To An Area Known To Be High Risk For COVID-19? No [email or web address] Information not available 01/26/2025 Are You Deaf Or Do You Have Serious Difficulty Hearing? No [email or web address] Information not available 01/26/2025 What Type Of Diet Are You Following? REGULAR [email or web address] Information n ot available 01/26/2025 What Is The Highest Grade Or Level Of School You Have Completed Or The Highest Degree You Have Received? [id number] Information not available 01/26/2025 Are There Any Guns Present In Your Home? Yes Information not available 01/26/2025 Have You Ever Been Counseled For Unhealthy Alcohol Use? No Information not available 05/27/2025 Do You Use Protection During Sex? No [email or web address] Information not available 01/26/2025 Do You Use Your Seat Belt Or Car Seat Routinely? Yes [email or web address] Information not available 01/26/2025 Are You Sexually Active? Yes [email or web address] Information not available 01/26/2025 Do You Have Smoke And Carbon Monoxide Detectors In Your Home? Yes [email or web address] Information not available 01/26/2025 How Much Tobacco Do You Smoke? No [email or web address] Information not available 01/26/2025 Do You Use Sunscreen Routinely? Yes Information not available 01/26/2025 Has Tobacco Cessation Counseling Been Provided? No [email or web address] Information not available 05/27/2025 Have You Used IV Drugs? No [email or web address] Information not available 01/26/2025 Do You Have Difficulty Walking Or Climbing Stairs? No [email or web address] Information not available 01/26/2025 Sex: Unknown Functional Status Question Answer Note LastModified by Organizat ion Details LastModified Time Do you use any illicit or recreational drugs? No [email or web address] Information not available 01/26/2025 What is your level of alcohol consumption? Occasional [email or web address] Information not available 01/26/2025 Are you currently employed? Yes [email or web address] Information not available 01/26/2025 Are you able to walk independently without assistance or assistive devices? YESWOREST [email or web address] Information not available 01/26/2025 Are you able to care for yourself independently? 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 No [email or web address] Information not available 01/26/2025 What is your exercise level? Moderate Information not available 01/26/2025 Mental Status Question Answer Note LastModified by Organization D etails LastModified Time Do you feel stressed (tense, restless, nervous, or anxious, or unable to sleep at night)? [id number] [email or web address] Information not available 01/26/2025 Family History Relationship Description Onset Age of this Age Resolved Age Notes LastModified by Organization Details LastModified Time Mother Malignant neoplasm of breast 41 Double mastec marium - stage 1 [email or web address] Not available 07/21/2025 09:35:24 Mother Malignant neoplasm of breast [email or web address] Not available 2024 10:54:50 Medical History Condition [...] ICD10 Code Diagnosis IMO Codes Diagnosis Note [id number] RICO VAUGHN MD [place] [address] [address] 09/02/2025 14:23:27 09/02/2025 14:56:42 Abnormal placenta affecting management of mother 52238887 O43.199 98640245 - serial growth US Gestation period, 34 weeks 60139257 Z3A.34 8231060 [id number] MD Lalo HENDERSON [address] [address] 09/14/2025 15:53:59 09/14/2025 16:45:06 Anomaly of placenta 54851372 O43.103 Z3A.36 [id number] MD Lalo HENDERSON [address],[place] [address] 09/14/2025 15:54:35 09/14/2025 17:21:21 Abnormal placenta affecting management of mother 66484827 O43.199 51312414 - serial growth US Gestation period, 36 weeks 48058576 Z3A.36 3126371 - continue PNV [id number] RICO VAUGHN MD [place] [address],[place] [address] 09/20/2025 16:07:26 09/20/2025 16:51:07 Abnormal placenta affecting management of mother 48776606 O43.199 54900262 - serial growth US Gestation period, 36 weeks 70906486 Z3A.36 1329538 - continue PNV [id number] Bernice Funez CNM [place] [address],[place] [address] 09/30/2025 10:27:06 09/30/2025 10:59:53 Gestation period, 38 weeks 18813325 Z3A.38 [id number] Health Concerns Section Related Observation LastModified by Organization Detai ls LastModified Time None Recorded Concern Status LastModified by Organization Details LastModified Time None Recorded Payers Encounter Date Sequence Insurance Name Policy Number Policy Serrato Covered Member ID Serrato Member ID Guarantor Name 09/30/2025 1 [facility] [id number] Eric Tolbert [id number] Renata Tolbert Notes Date Note Type Note Provider Name and Address Organization Details Recorded Time 09/30/2025 text/html Generic HPI TemplateReported by Patient Bernice Funez CNM [address], [place], [address], [facility] 09/30/2025 10:53:45 OBGyn Episode Ob Episode Information Episode Created Date Number of Fetuses Patient Bloodtype Patient rh Status Prepregnancy Weight lbs Domestic Partner Domestic Partner Phone Father Name Brick Off Bearer Status 03/30/20 25 1 A Positive 147 Eric OPEN Fetus Data First Name Last Name Admitted to NICU Weight (g) Sex Living Outcome Pediatric Complications Fetus ID Race Codes Race Delivery Type [id number] Problems Problem Notes Problem Name Start Date End Date Resolution Snomed Code Not e Abnormal placenta affecting management of mother 05/27/2025 92159714 serial growth U S Enio Calculation Initial Enio Date Initial Exam [...] Date Ultra Sound Latest Days Gestation 0 [email or web address] 03/30/2025 10/12/20 25 0 Pre- Flowsheet Flowsheet Date 03/30/2025 Suresh Score Blood Edema Fundus Height Fundus Units Glucose Ketones Leukocytes Nitrite Labor Signs Protein Cervic Dilation Cervic Effacement Cervic Station Type Weight in lbs Pre/Post Dialysis Refused Weight 154.28883102348 BP Diastolic BP Location Tested BP Systolic BP Type 74 L arm 107 sitting Fetus Heart Rate Present A Present Fetus Movement A No Comments Patient presents to [facility] care. Hx of uncomplicated . otherwise uncomplicated. No nausea or cramping. NT/NB wnl today, desires NIPT. Will draw today with new OB labs. RTC 4 weeks for routine care. Flowsheet Date 04/27/2025 Suresh Score Blood Edema Fundus Height Fundus Units Glucose Ketones Leukocytes Nitrite Labor Signs Protein Cervic Dilation Cervic Effacement Cervic Station Type Weight in lbs Pre/Post Dialysis Refused Weight 160.851624047288 BP Diastolic BP Location Tested BP Systolic [...] Type Weight in lbs Pre/Post Dialysis Refused 165.767664525325 BP Diastolic BP Location Tested BP Systolic BP Type 70 L arm 109 sitting Fetus Heart Rate Present A 158 Fetus Movement A Yes Comments Starting to feel movem ents. No cramping or bleeding. Anatomy complete and normal, EFW 48%. Small CP cysts on left, discussed with patient. Marginal cord insertion, plan for serial growth US. Going to [place] tomorrow! RTC 4 weeks. Flowsheet Date 06/24/2025 [...] Type Weight in lbs Pre/Post Dialysis Refused [phone] BP Diastolic BP Location Tested BP Systolic [...] Type Weight in lbs Pre/Post Dialysis Refused [phone] BP Diastolic BP Location Tested BP Systolic [...] Type Weight in lbs Pre/Post Dialysis Refused [phone] BP Diastolic BP Location Tested BP Systolic [...] Weight in lbs Pre/Post Dialysis Refused Weight [id number] BP Diastolic BP Location Tested BP Systolic [...] Weight in lbs Pre/Post Dialysis Refused Weight [id number] BP Diastolic BP Location Tested BP Systolic [...] Type Weight in lbs Pre/Post Dialysis Refused [id number] BP Diastolic BP Location Tested BP Systolic [...] Weight in lbs Pre/Post Dialysis Refused Weight [id number] BP Diastolic BP Location Tested BP Systolic [...] Type Weight in lbs Pre/Post Dialysis Refused [phone] BP Diastolic BP Location Tested BP Systolic [...]
--- OUTSIDE RECORDS SUMMARY | 2025-10-02 05:56 | XMS_ITS | Continuity of Care Document ---
Author Organization [facility] [place] Address [address] [place] [address] Assessment No assessment recorded. Plan of Treatment Reminders Order Date Submit Date Provider Last Modified By Organization Details Last Modified Time Details Appointments OB ROUTINE 2024 08:45A Regina VAUGHN MD Not available Not available Not available Lab None recorded . Referral None recorded . Procedures None recorded . Surgeries None recorded . Imaging US, obstetri c, follow-u p [address] [place] [facility] [address], [address], [place], [address], 09/16/2025 11:02:29 Medication Orders None recorded . Patient TargetsNo targets recorded. Patient InstructionsNo instructions recorded. Reason for Referral None Reported. Results Created Date Observation Date Name Description Value Unit Range Abnormal Flag Note LastModifiedBy Organization Detail LastModifiedTime 04/04/2004/04/2025 [UNIT Y] ANEUP LOIDY NIPT fraction 10.6% normal Not Available [facility] [address], [place], [address], 04/04/2025 15:29:25 04/04/20 25 04/04/2025 [UNIT Y] ANEUP LOIDY NIPT 22Q11.2 microdeletio n LOW RISK <1 in 10,000 normal Not Available [facility] [address], [place], [address], 04/04/2025 15:29:25 04/04/20 25 04/04/2025 [UNIT Y] ANEUP LOIDY NIPT sex chromosome aneuploidy NOT DETECT ED normal Not Available [facility] [address], [place], [address], 04/04/2025 15:29:25 04/04/20 25 04/04/2025 [UNIT Y] ANEUP LOIDY NIPT monosomy X LOW RISK <1 in 10,000 normal Not Available [facility] [address], [place], [address], 04/04/2025 15:29:25 04/04/20 25 04/04/2025 [UNIT Y] ANEUP LOIDY NIPT trisomy 13 LOW RISK <1 in 10,000 normal Not Available [facility] [address], [place], [address], 04/04/2025 15:29:25 04/04/20 25 04/04/2025 [UNIT Y] ANEUP LOIDY NIPT trisomy 18 LOW RISK <1 in 10,000 normal Not Available [facility] [address], [place], [address], 04/04/2025 15:29:25 04/04/20 25 04/04/2025 [UNIT Y] ANEUP LOIDY NIPT trisomy 21 LOW RISK <1 in 10,000 normal Not Available [facility] [address], [place], [address], 04/04/2025 15:29:25 04/04/20 25 04/04/2025 [UNIT Y] ANEUP LOIDY NIPT sex MALE normal Not Available [facility] [address], [place], [address], 04/04/2025 15:29:25 04/04/20 25 04/04/2025 [UNIT Y] ANEUP LOIDY NIPT gestation SINGLE TON normal Not Available [facility] [address], [place], [address], 04/04/2025 15:29:25 04/04/20 25 04/04/2025 [UNIT Y] ANEUP ROSI NIPT for detailed report, see pdf See PDF normal Not Available [facility] [address], [place], [address], 04/04/2025 15:29:25 04/11/20 25 04/11/2025 [UNIT Y] THOMAS KAIA [place] sickle cell disease/beta -thalassemia /hemoglobino pathies carrier screen NEGATI VE normal Not Available [facility] [address], [place], [address], 04/11/2025 12:08:11 04/11/20 25 04/11/2025 [UNIT Y] THOMAS Chisholm alpha-thalas semia carrier screen NEGATI VE normal Not Available [facility] [address], [place], [address], 04/11/2025 12:08:11 04/11/20 25 04/11/2025 [UNIT Y] THOMAS Chisholm cystic fibrosis carrier screen NEGATI VE normal Not Available [facility] [address], [place], [address], 04/11/2025 12:08:11 04/11/20 25 04/11/2025 [UNIT Y] THOMAS Chisholm spinal muscular atrophy carrier screen NEGATI VE 2 SMN1 copies , SNP not presen t normal Not Available [facility] [address], [place], [address], 04/11/2025 12:08:11 04/11/20 25 04/11/2025 [UNIT Y] THOMAS Chisholm for detailed report, see pdf See PDF normal Not Available [facility] [address], [place], [address], 04/11/2025 12:08:11 03/30/20 25 03/30/2025 CULTU RE: URINE result report SEE RESULT S BELOW Test: Cultu re: Urine Speci men Sourc e: Urine Voide d Speci men Type: Urine Speci men Date: 2024 1419 Resul t Date: 2024 2343 Resul t Statu s: Final resul t Abnor mal: No Resul ting Lab: [facility] [address] [facility] [address] Tel: CULTU RE ----- ----- ----- --- Organ ism(s ) consi stent with uroge nital or skin deja . Repea t cultu re if sympt oms indic ate. Not Available [facility] (Lab) [address], [place], [address], 04/01/2025 00:46:12 03/30/20 25 03/30/2025 CBC W/DIF F WBC 8.0 10'3/ uL 3.5-10 .5 Not Available [facility] (Lab) [address] [place], [address], 04/02/2025 16:43:21 03/30/20 25 03/30/2025 CBC W/DIF F RBC 4.19 10'6/ uL (based on docume nted legal sex) 3.80-5 .20 Not Available [facility] (Lab) [address] [place], [address], 04/02/2025 16:43:21 03/30/20 25 03/30/2025 CBC W/DIF F HGB 13.3 g/dL (based on docume nted legal sex) 11.6-1 5.4 Not Available [facility] (Lab) [address] [place], [address], 04/02/2025 16:43:21 03/30/20 25 03/30/2025 CBC W/DIF F HCT 39.6 % (based on docume nted legal sex) 34.0-4 5.0 Not Available [facility] (Lab) [address] [place], [address], 04/02/2025 16:43:21 03/30/20 25 03/30/2025 CBC W/DIF F MCV 94.5 fL 80.0-9 9.0 Not Available [facility] (Lab) [address], [place], [address], 04/02/2025 16:43:21 03/30/20 25 03/30/2025 CBC W/DIF F MCH 31.7 pg 27.0-3 4.0 Not Available [facility] (Lab) [address], [place], [address], 04/02/2025 16:43:21 03/30/20 25 03/30/2025 CBC W/DIF F MCHC 33.6 g/dL 32.0-3 5.5 Not Available [facility] (Lab) [address], [place], [address], 04/02/2025 16:43:21 03/30/20 25 03/30/2025 CBC W/DIF F RDW 12.7 % 11.0-1 5.0 Not Available [facility] (Lab) [address], [place], [address], 04/02/2025 16:43:21 03/30/20 25 03/30/2025 CBC W/DIF F plt 307 10'3/ uL 150-40 0 Not Available [facility] (Lab) [address], [place], [address], 04/02/2025 16:43:21 03/30/20 25 03/30/2025 CBC W/DIF F MPV 10.2 fL 8.8-12 .1 Not Available [facility] (Lab) [address], [place], [address], 04/02/2025 16:43:21 03/30/20 25 03/30/2025 CBC W/DIF F NRBC's 0.0 % 0.0 Not Available [facility] (Lab) [address], [place], [address], 04/02/2025 16:43:21 03/30/20 25 03/30/2025 CBC W/DIF F absolute NRBCs 0.0 10'3/ uL no refere nce range establ ished Not Available [facility] (Lab) [address], [place], [address], 04/02/2025 16:43:21 03/30/20 25 03/30/2025 CBC W/DIF F neutrophils 73.0 % 34.0-7 3.0 Not Available [facility] (Lab) [address], [place], [address], 04/02/2025 16:43:21 03/30/20 25 03/30/2025 CBC W/DIF F lymphocytes 20.3 % 15.0-5 0.0 Not Available [facility] (Lab) [address] [place], [address], 04/02/2025 16:43:21 03/30/20 25 03/30/2025 CBC W/DIF F monocytes 5.5 % 1.0-15 .0 Not Available [facility] (Lab) [address], [place], [address], 04/02/2025 16:43:21 03/30/20 25 03/30/2025 CBC W/DIF F eosinophils 0.6 % 0.0-8. 0 Not Available [facility] (Lab) [address] [place], [address], 04/02/2025 16:43:21 03/30/20 25 03/30/2025 CBC W/DIF F basophils 0.3 % 0.0-2. 0 Not Available [facility] (Lab) [address] [place], [address], 04/02/2025 16:43:21 03/30/20 25 03/30/2025 CBC W/DIF [...] separ ately if prese nt. Not Available [facility] (Lab) [address], [place], [address], 04/02/2025 16:43:21 03/30/2003/30/2025 CBC W/DIF F absolute neutrophils 5.8 10'3/ uL 1.5-8. 0 Not Available [facility] (Lab) [address], [place], [address], 04/02/2025 16:43:21 03/30/20 25 03/30/2025 CBC W/DIF F absolute lymphocytes 1.6 10'3/ uL 1.0-4. 0 Not Available [facility] (Lab) [address], [place], [address], 04/02/2025 16:43:21 03/30/20 25 03/30/2025 CBC W/DIF F absolute monocytes 0.4 10'3/ uL 0.2-1. 0 Not Available [facility] (Lab) [address], [place], [address], 04/02/2025 16:43:21 03/30/2003/30/2025 CBC W/DIF F absolute eosinophils 0.1 10'3/ uL 0.0-0. 6 Not Available [facility] (Lab) [address], [place], [address], 04/02/2025 16:43:21 03/30/20 25 03/30/2025 CBC W/DIF F absolute basophils 0.0 10'3/ uL 0.0-0. 3 Not Available [facility] (Lab) [address] [place], [address], 04/02/2025 16:43:21 03/30/20 25 03/30/2025 CBC W/DIF F absolute immature granulocytes 0.0 10'3/ uL 0.00-0 .10 : Not Hispa juni or Latin o Refer ence range s for nonbi nary/ inter sex or unspe cifie d gende r patie nts have not been estab lishe d. [facility]as e [facility] for range s estab lishe d for cisge nder patie nts and evalu ate in the clini mohit yong xt of the indiv idual patie nt: https ://la bhand book. nm.or g/gen derx Not Available [facility] (Lab) [address], [place], [address], 04/02/2025 16:43:21 03/30/2003/30/2025 HEPAT ITIS C ANTIB CLAUDETTE SCREE N, REFLE X TO CONFI RMATI ON hepatitis C antibody Non-re active non-re active Antib odies to HCV Not Detec luis, does not exclu de the possi bilit y of expos ure to HCV. : Not Hispa juni or Latin o Not Available [facility] (Lab) [address], [place], [address], 04/02/2025 16:43:21 03/30/2003/30/2025 HEPAT ITIS B SURFA [...] Hispa juni or Latin o Not Available [facility] (Lab) [address], [place], [address], 04/02/2025 16:43:22 03/30/2003/30/2025 HIV 1/2 ANTIG EN/AN TIBOD Y, REFLE X CONFI RMATI ON HIV antigen/anti body Nonrea ctive nonrea ctive : Not Hispa juni or Latin o HIV-1 antig en and HIV-1 /HIV- 2 antib odies were not detec luis. No labor atory evide nce of HIV infec tion. Not Available [facility] (Lab) [address], [place], [address], 04/02/2025 16:43:22 03/30/20 25 03/30/2025 TYPE/ RH/SC REEN ABO/Rh type A POS Not Available [facility] (Lab) [address], [place], [address], 04/02/2025 16:43:23 03/30/20 25 03/30/2025 TYPE/ RH/SC REEN antibody screen NEG Not Available [facility] (Lab) [address], [place], [address], 04/02/2025 16:43:23 03/30/20 25 03/30/2025 TYPE/ RH/SC REEN exp date 2024 23:59 Not Available [facility] (Lab) [address], [place], [address], 04/02/2025 16:43:23 03/30/20 25 03/30/2025 RUBEL LA IGG ANTIB CLAUDETTE, QUANT rubella antibodies, IgG Reacti ve reacti ve Not Available [facility] (Lab) [address], [place], [address], 04/02/2025 16:43:23 03/30/20 25 03/30/2025 RUBEL LA IGG ANTIB CLAUDETTE, QUANT rubella antibodies, IgG quant 20.6 IU/mL >=10 : Not Hispa juni or Latin o Non-r eacti ve (Non- Immun e) <10 IU/mL React luli (Immu ne) > or = 10 IU/mL Not Available [facility] (Lab) [address], [place], [address], 04/02/2025 16:43:23 03/30/20 25 03/30/2025 HEMOG LOBIN A1C hemoglobin A1C 5.0 % 4.0-5. 6 : Not Hispa juin or Latin o The Ameri can Diabe [...] >8.0% Actio n sugge sted Not Available [facility] (Lab) [address], [place], [address], 04/02/2025 16:43:23 03/30/20 25 03/30/2025 RPR SCREE N, REFLE X TITER /CONF IRMAT ION RPR qualitative Nonrea ctive nonrea ctive : Not Hispa juni or Latin o Not Available [facility] (Lab) [address], [place], [address], 04/02/2025 16:43:24 03/30/20 25 03/30/2025 LEAD, BLOOD (ADUL T/PED IATRI C) lead, whole blood <1.0 mcg/d L <3.5 See Note 1 Héctor sis was perfo rmed by Stephani Burrows ed Plasm a Mass Spect romet ry (ICPM S) Note 1 This test was devel oped and its héctor tical perfo rmanc e rubens cteri stics have been deter mined by [employer] [facility]. It has not been clear ed or appro ahmet by the FDA. This assay has been valid ated pursu ant to the CLIA regul ation s and is used for clini mohit purpo ses. : Not Hispa juni or Latin o Perfo rming Organ izati on Infor matio n: Site ID: CB Name: [facility] ostic s-Rediruchi Resendez Addre ss: [address] [place] [address] Direc tor: Carlie Rivera s Not Available [facility] (Lab) [address], [place], [address], 04/02/2025 16:43:24 07/21/2007/21/2025 HEMAT OCRIT (HCT) HCT 39.0 % (based on docume nted legal sex) 34.0-4 5.0 Not Available [facility] (Lab) [address], [place], [address], 07/22/2025 13:19:40 07/21/2007/21/2025 HEMOG LOBIN (HGB) HGB 13.1 g/dL (based on docume nted legal sex) 11.6-1 5.4 Not Available [facility] (Lab) [address], [place], [address], 07/22/2025 13:19:40 07/21/20 25 07/21/2025 GTT - GESTA LAUREN L NELSY [place], ACOG OB glucose, 1 hour screen 122 mg/dL 70-135 Not Available [facility] (Lab) [address], [place], [address], 07/22/2025 13:19:40 07/21/2007/21/2025 HIV 1/2 ANTIG EN/AN TIBOD Y, REFLE X CONFI RMATI ON HIV antigen/anti body Nonrea ctive nonrea ctive HIV-1 antig en and HIV-1 /HIV- 2 antib odies were not detec luis. No labor atory evide nce of HIV infec tion. Not Available [facility] (Lab) [address], [place], [address], 07/22/2025 13:19:41 07/21/2007/21/2025 RPR SCREE N, REFLE X TITER /CONF IRMAT ION RPR qualitative Nonrea ctive nonrea ctive Not Available [facility] (Lab) [address] [place], [address], 07/22/2025 13:19:41 12/03/20 25 09/14/2025 CULTU RE: GROUP B STREP [...] Resul ting Lab: [facility] [address] [facility] [address] Tel: CULTU RE ----- ----- ----- --- No Group B strep isola luis at 2 days (toyin ctive broth enhan cemen t) Not Available [facility] (Lab) [address], [place], [address], 09/17/2025 15:27:26 03/30/20 25 03/30/2025 US, obste tric, nucha l trans lucen cy No observ ation record ed. Melodie [address] [place] [address], [place], [address], 03/31/2025 10:09:17 03/30/20 25 03/30/2025 US, obste tric, nucha l trans lucen cy No observ ation record ed. [email or web address] [place] [address], [place], [address], 03/30/2025 18:43:35 05/27/20 25 05/27/2025 US, obste tric, 2nd or 3rd trime ster No observ ation record ed. [email or web address] [place] [address], [place], [address], 05/27/2025 13:35:00 05/27/20 25 05/27/2025 US, obste tric, 2nd or 3rd trime ster No observ ation record ed. [email or web address] [place] [address], [place], [address], 05/27/2025 16:07:50 06/24/20 25 06/24/2025 US, obste tric, follo w-up No observ ation record ed. [facility] [address], [place], [address], 06/24/2025 17:08:43 06/24/20 25 06/24/2025 US, obste tric, follo w-up No observ ation record ed. [email or web address] [place] [address], [place], [address], 06/24/2025 17:02:28 07/21/20 25 07/21/2025 US, obste tric, follo w-up No observ ation record ed. [facility] [address], [place], [address], 07/21/2025 15:22:55 07/21/2007/21/2025 US, obste tric, follo w-up No observ ation record ed. [email or web address] [place] [address], [place], [address], 07/22/2025 01:37:08 08/19/20 25 08/19/2025 US, obste tric, follo w-up No observ ation record ed. [email or web address] [place] [address], [place], [address], 08/19/2025 17:07:11 08/19/20 25 08/19/2025 US, obste tric, follo w-up No observ ation record ed. [email or web address] [place] [address], [place], [address], 08/22/2025 10:39:24 09/14/20 25 09/14/2025 US, obste tric, follo w-up No observ ation record ed. [email or web address] [place] [address], [place], [address], 09/14/2025 17:58:23 09/14/20 25 09/14/2025 US, obste tric, follo w-up No observ ation record ed. [email or web address] Chane[place] [address], [place], [address], 09/18/2025 09:36:54 Result Notes None recorded. Problems Name Problem SNOMED Code Status Onset Date Resolution Date Notes Provider Name and Address Organization Details Recorded Time 03125417 Active 2024 Sindy Sanchez [facility], [facility] 12:54:51 Abnormal placenta affecting management of mother 08871040 Active 2024 serial growth US RICO VAUGHN MD [address], [place], [address], [place] [facility] 11:08:27 Problem Notes None recorded. Procedures Surgical History Date Name Laterality Status Provider Name and Address Organization Details Recorded Time Date of Last Pap Smear completed Sindy Sanchez [facility] 03/03/2025 16:18:09 9 Breast reduction completed Kelley Doyle [facility] 01/26/2025 14:37:39 Imaging Results [...] Address Organization Details Last Updated DateTime 09/14/2025 62707.919 78 g 32.3 kg/m2 165.1 cm 117/77 mm[Hg] Mehreen Verdugo [facility] 09/14/2025 16:43:16 Social History Question Answer Notes LastModified by Organizat ion Details LastModified Time Tobacco Smoking Status Never Smoker Kelley Doyle ollie, [facility] 01/26/2025 14:37:11 Do You Have An Advance Directive? No Information n ot available 01/26/2025 How Many Years Have You Consumed Alcohol? 5 [email or web address] Information not available 01/26/2025 Are You Blind Or Do You Have Difficulty Seeing? No [email or web address] Information n ot available 01/26/2025 What Is Your Level Of Caffeine Consumption? Moderate [email or web address] Information not available 01/26/2025 In The 14 Days Before Symptom Onset, Have You Had Close Contact With A Laboratory-confirm ed COVID-19 While That Case Was Ill? No Information n ot available 01/26/2025 In The 14 Days Before Symptom Onset, Have You Had Close Contact With A Person Who Is Under Investigation For COVID-19 While That Person Was Ill? No [email or web address] Information not available 01/26/2025 Have You Been To An Area Known To Be High Risk For COVID-19? No Information not available 01/26/2025 Are You Deaf Or Do You Have Serious Difficulty Hearing? No [email or web address] Information not available 01/26/2025 What Type Of Diet Are You Following? REGULAR [email or web address] Information n ot available 01/26/2025 What Is The Highest Grade Or Level Of School You Have Completed Or The Highest Degree You Have Received? [id number] [email or web address] Information not available 01/26/2025 Are There Any Guns Present In Your Home? Yes [email or web address] Information not available 01/26/2025 Have You Ever Been Counseled For Unhealthy Alcohol Use? No [email or web address] Information not available 05/27/2025 Do You Use Protection During Sex? No [email or web address] Information not available 01/26/2025 Do You Use Your Seat Belt Or Car Seat Routinely? Yes Information not available 01/26/2025 Are You Sexually Active? Yes [email or web address] Information not available 01/26/2025 Do You Have Smoke And Carbon Monoxide Detectors In Your Home? Yes [email or web address] Information not available 01/26/2025 How Much Tobacco Do You Smoke? No [email or web address] Information not available 01/26/2025 Do You Use Sunscreen Routinely? Yes [email or web address] Information not available 01/26/2025 Has Tobacco Cessation [...] is your level of alcohol consumption? Occasional [email or web address] Information not available 01/26/2025 Are you currently employed? Yes [email or web address] Information not available 01/26/2025 Are you able to walk independently without assistance or assistive devices? YESWOREST [email or web address] Information not available 01/26/2025 Are you able to care for yourself independently? 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 No [email or web address] Information not available 01/26/2025 What is your exercise level? Moderate Information not available 01/26/2025 Mental Status Question Answer Note LastModified by Organization D etails LastModified Time Do you feel stressed (tense, restless, nervous, or anxious, or unable to sleep at night)? [id number] [email or web address] Information not available 01/26/2025 Family History Relationship Description Onset Age of this Age Resolved Age Notes LastModified by Organization Details LastModified Time Mother Malignant neoplasm of breast 41 Double mastec marium - stage 1 [email or web address] Not available 07/21/2025 09:35:24 Mother Malignant neoplasm of breast Not available 2024 10:54:50 Medical History Condition Response Other N Blood Transfusion N Dermatologic Disorders N Gestational Diabetes N Anxiety Disorder N Autoimmune disease N Arthritis N Polyps N Infertility N Acid Reflux (GERD) N Cancer N Varicosities N Stroke N Neurologic/Epilepsy N Fibromyalgia N Headaches N Kidney Disease N Heart Problems N Kidney or Bladder Problems N Eating Disorder N Art (IVF or FET) N Hepatitis/Liver Disease N No Past Medical History N Urinary Tract Infection N Asthma N Trauma/Violence N Thrombophilias N Allergies (Food, seasonal, environmental ) N Breast Cancer N Drug/Latex Allergies/Reactions N Lung Disease N Defects or Inherited Disease N Breast Problem N Hematologic disorders N Anesthesia Complications N History of STI N Deep Vein Thrombosis N Polycystic ovary syndrome N History of abnormal pap N Endometriosis N High Cholesterol N Thyroid Problems N GI Problems N Anemia N Psychiatric Illness N Ovarian Cancer N Diabetes N Pulmonary (TB, Asthma) N Eczema N Abuse/Domestic Violence N Depression/ depression N Heart Disease N Pre-Eclampsia N Hypertension N Osteoporosis N Gynecological History Statement/Question Response Flow Moderate [...] ICD10 Code Diagnosis IMO Codes Diagnosis Note [id number] MD Lalo HENDERSON [address] [address] 08/19/2025 15:47:49 08/19/2025 16:29:31 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 Z3A.32 [id number] MD Lalo HENDERSON [address] [address] 08/19/2025 15:48:09 08/19/2025 16:58:48 Abnormal placenta affecting management of mother 58391937 O43.199 88290529 - serial growth US Gestation period, 32 weeks 6404865 Z3A.32 6994411 - continue PNV [id number] RICO VAUGHN MD [place] [address],[place] [address] 09/02/2025 14:23:27 09/02/2025 14:56:42 Abnormal placenta affecting management of mother 70910918 O43.199 91196345 - serial growth US Gestation period, 34 weeks 45696853 Z3A.34 [id number] RICO VAUGHN MD [place] [address],[place] [address] 09/14/2025 15:53:59 09/14/2025 16:45:06 Anomaly of placenta 11789446 O43.103 Z3A.36 8422694 [id number] RICO VAUGHN MD [place] [address],[place] [address] 09/14/2025 15:54:35 09/14/2025 17:21:21 Abnormal placenta affecting management of mother 35809352 O43.199 38598728 - serial growth US Gestation period, 36 weeks 55145307 Z3A.36 0604495 - continue PNV Health Concerns Section Related Observation LastModified by Organization Detai ls LastModified Time None Recorded Concern Status LastModified by Organization Details LastModified Time None Recorded Payers Encounter Date Sequence Insurance Name Policy Number Policy Serrato Covered Member ID Serrato Member ID Guarantor Name 09/14/2025 1 [employer] [id number] Eric Tolbert [id number] Renata Tolbert Notes Date Note Type Note Provider Name and Address Organization Details Recorded Time 09/14/2025 text/html Generic HPI TemplateReported by Patient RICO VAUGHN MD [address], [place], [address], [facility] 09/14/2025 17:20:38 OBGyn Episode Ob Episode Information Episode Created Date Number of Fetuses Patient Bloodtype Patient rh Status Prepregnancy Weight lbs Domestic Partner Domestic Partner Phone Father Name Functional Support Analyst Status 03/30/20 25 1 A Positive 147 Eric OPEN Fetus Data First Name Last Name Admitted to NICU Weight (g) Sex Living Outcome Pediatric Complications Fetus ID Race Codes Race Delivery Type [id number] Problems Problem Notes Problem Name Start Date End Date Resolution Snomed Code Not e Abnormal placenta affecting management of mother 05/27/2025 [id number] serial growth U S Enio Calculation Initial [...] Date Ultra Sound Latest Days Gestation 0 [id number] 03/30/2025 10/12/20 25 0 Pre-sonia Flowsheet Flowsheet Date 03/30/2025 Suresh Score Blood Edema Fundus Height Fundus Units Glucose Ketones Leukocytes Nitrite Labor Signs Protein Cervic Dilation Cervic Effacement Cervic Station Type Weight in lbs Pre/Post Dialysis Refused Weight 154.06612450768 BP Diastolic BP Location Tested BP Systolic BP Type 74 L arm 107 sitting Fetus Heart Rate Present A Present Fetus Movement A No Comments Patient presents to [facility] care. Hx of uncomplicated . otherwise uncomplicated. No nausea or cramping. NT/NB wnl today, desires NIPT. Will draw today with new OB labs. RTC 4 weeks for routine care. Flowsheet Date 04/27/2025 Suresh Score Blood Edema Fundus Height Fundus Units Glucose Ketones Leukocytes Nitrite Labor Signs Protein Cervic Dilation Cervic Effacement Cervic Station Type Weight in lbs Pre/Post Dialysis Refused Weight 160.016307673236 BP Diastolic BP Location Tested BP Systolic [...] Type Weight in lbs Pre/Post Dialysis Refused 165.024154298595 BP Diastolic BP Location Tested BP Systolic BP Type 70 L arm 109 sitting Fetus Heart Rate Present A 158 Fetus Movement A Yes Comments Starting to feel movem ents. No cramping or bleeding. Anatomy complete and normal, EFW 48%. Small CP cysts on left, discussed with patient. Marginal cord insertion, plan for serial growth US. Going to [place] tomorrow! RTC 4 weeks. Flowsheet Date 06/24/2025 [...] Type Weight in lbs Pre/Post Dialysis Refused 174.94403305935 BP Diastolic BP Location Tested BP Systolic [...] Type Weight in lbs Pre/Post Dialysis Refused 182.519933085856 BP Diastolic BP Location Tested BP Systolic [...] Type Weight in lbs Pre/Post Dialysis Refused 186.434210365989 BP Diastolic BP Location Tested BP Systolic [...] Weight in lbs Pre/Post Dialysis Refused Weight 187.404444588492 BP Diastolic BP Location Tested BP Systolic [...] Weight in lbs Pre/Post Dialysis Refused Weight 190.943922677487 BP Diastolic BP Location Tested BP Systolic [...] Type Weight in lbs Pre/Post Dialysis Refused 194.555200249409 BP Diastolic BP Location Tested BP Systolic [...] Weight in lbs Pre/Post Dialysis Refused Weight 196.955136365052 BP Diastolic BP Location Tested BP Systolic [...] Type Weight in lbs Pre/Post Dialysis Refused 196.533084182747 BP Diastolic BP Location Tested BP Systolic [...]
--- OUTSIDE RECORDS SUMMARY | 2025-10-02 05:56 | XMS_ITS | Continuity of Care Document ---
Author Organization [facility] Address [address] [place] [address] [place] [address] Assessment No assessment recorded. Plan of Treatment Reminders Order Date Submit Date Provider Last Modified By Organization Details Last Modified Time Details Appointments OB ROUTINE 2024 08:45A Regina VAUGHN MD Not available Not available Not available Lab None recorded . Referral None recorded . Procedures None recorded . Surgeries None recorded . Imaging US, obstetri c, follow-u p 2024 025 [facility], [facility] [place][note 2] [address], [address], [place], [address], 08/19/2025 16:53:03 Medication Orders None recorded . Patient TargetsNo targets recorded. Patient InstructionsNo instructions recorded. Reason for Referral None Reported. Results Created Date Observation Date Name Description Value Unit Range Abnormal Flag Note LastModifiedBy Organization Detail LastModifiedTime 04/04/2004/04/2025 [UNIT Y] ANEUP LOIDY NIPT fraction 10.6% normal Not Available [facility] [address], [place], [address], 04/04/2025 15:29:25 04/04/20 25 04/04/2025 [UNIT Y] ANEUP LOIDY NIPT 22Q11.2 microdeletio n LOW RISK <1 in 10,000 normal Not Available [facility] [address], [place], [address], 04/04/2025 15:29:25 04/04/20 25 04/04/2025 [UNIT Y] ANEUP LOIDY NIPT sex chromosome aneuploidy NOT DETECT ED normal Not Available [facility] [address], [place], [address], 04/04/2025 15:29:25 04/04/20 25 04/04/2025 [UNIT Y] ANEUP LOIDY NIPT monosomy X LOW RISK <1 in 10,000 normal Not Available [facility] [address], [place], [address], 04/04/2025 15:29:25 04/04/20 25 04/04/2025 [UNIT Y] ANEUP LOIDY NIPT trisomy 13 LOW RISK <1 in 10,000 normal Not Available [facility] [address], [place], [address], 04/04/2025 15:29:25 04/04/20 25 04/04/2025 [UNIT Y] ANEUP LOIDY NIPT trisomy 18 LOW RISK <1 in 10,000 normal Not Available [facility] [address], [place], [address], 04/04/2025 15:29:25 04/04/20 25 04/04/2025 [UNIT Y] ANEUP LOIDY NIPT trisomy 21 LOW RISK <1 in 10,000 normal Not Available [facility] [address], [place], [address], 04/04/2025 15:29:25 04/04/20 25 04/04/2025 [UNIT Y] ANEUP LOIDY NIPT sex MALE normal Not Available [facility] [address], [place], [address], 04/04/2025 15:29:25 04/04/20 25 04/04/2025 [UNIT Y] ANEUP LOIDY NIPT gestation SINGLE TON normal Not Available [facility] [address], [place], [address], 04/04/2025 15:29:25 04/04/20 25 04/04/2025 [UNIT Y] ANEUP ROSI NIPT for detailed report, see pdf See PDF normal Not Available [facility] [address], [place], [address], 04/04/2025 15:29:25 04/11/20 25 04/11/2025 [UNIT Y] THOMAS KAIA WHITTINGTON N sickle cell disease/beta -thalassemia /hemoglobino pathies carrier screen NEGATI VE normal Not Available [facility] [address], [place], [address], 04/11/2025 12:08:11 04/11/20 25 04/11/2025 [UNIT Y] THOMAS KAIA WHITTINGTON N alpha-thalas semia carrier screen NEGATI VE normal Not Available [facility] [address], [place], [address], 04/11/2025 12:08:11 04/11/20 25 04/11/2025 [UNIT Y] THOMAS KAIA Chisholm cystic fibrosis carrier screen NEGATI VE normal Not Available [facility] [address], [place], [address], 04/11/2025 12:08:11 04/11/20 25 04/11/2025 [UNIT Y] THOMAS Chisholm spinal muscular atrophy carrier screen NEGATI VE 2 SMN1 copies , SNP not presen t normal Not Available [facility] [address], [place], [address], 04/11/2025 12:08:11 04/11/20 25 04/11/2025 [UNIT Y] THOMAS Chisholm for detailed report, see pdf See PDF normal Not Available [facility] [address], [place], [address], 04/11/2025 12:08:11 03/30/20 25 03/30/2025 CULTU RE: URINE result report SEE RESULT S BELOW Test: Cultu re: Urine Speci men Sourc e: Urine Voide d Speci men Type: Urine Speci men Date: 2024 1419 Resul t Date: 2024 2343 Resul t Statu s: Final resul t Abnor mal: No Resul ting Lab: [facility] [address] [facility] [address] Tel: CULTU RE ----- ----- ----- --- Organ ism(s ) consi stent with uroge nital or skin deja . Repea t cultu re if sympt oms indic ate. Not Available [facility] (Lab) [address] [facility], [place], [address], 04/01/2025 00:46:12 03/30/2003/30/2025 CBC W/DIF F WBC 8.0 10'3/ uL 3.5-10 .5 Not Available [facility] (Lab) [address] [place], [address], 04/02/2025 16:43:21 03/30/20 25 03/30/2025 CBC W/DIF F RBC 4.19 10'6/ uL (based on docume nted legal sex) 3.80-5 .20 Not Available [facility] (Lab) [address] [place], [address], 04/02/2025 16:43:21 03/30/20 25 03/30/2025 CBC W/DIF F HGB 13.3 g/dL (based on docume nted legal sex) 11.6-1 5.4 Not Available [facility] (Lab) [address] [place], [address], 04/02/2025 16:43:21 03/30/20 25 03/30/2025 CBC W/DIF F HCT 39.6 % (based on docume nted legal sex) 34.0-4 5.0 Not Available [facility] (Lab) [address] [place], [address], 04/02/2025 16:43:21 03/30/20 25 03/30/2025 CBC W/DIF F MCV 94.5 fL 80.0-9 9.0 Not Available [facility] (Lab) [address] [facility], [place], [address], 04/02/2025 16:43:21 03/30/20 25 03/30/2025 CBC W/DIF F MCH 31.7 pg 27.0-3 4.0 Not Available [facility] (Lab) [address] [facility], [place], [address], 04/02/2025 16:43:21 03/30/20 25 03/30/2025 CBC W/DIF F MCHC 33.6 g/dL 32.0-3 5.5 Not Available [facility] (Lab) [address] [facility], [place], [address], 04/02/2025 16:43:21 03/30/20 25 03/30/2025 CBC W/DIF F RDW 12.7 % 11.0-1 5.0 Not Available [facility] (Lab) [address] [facility], [place], [address], 04/02/2025 16:43:21 03/30/20 25 03/30/2025 CBC W/DIF F plt 307 10'3/ uL 150-40 0 Not Available [facility] (Lab) [address] [facility], [place], [address], 04/02/2025 16:43:21 03/30/20 25 03/30/2025 CBC W/DIF F MPV 10.2 fL 8.8-12 .1 Not Available [facility] (Lab) [address] [place], [address], 04/02/2025 16:43:21 03/30/20 25 03/30/2025 CBC W/DIF F NRBC's 0.0 % 0.0 Not Available [facility] (Lab) [address] [facility], [place], [address], 04/02/2025 16:43:21 03/30/20 25 03/30/2025 CBC W/DIF F absolute NRBCs 0.0 10'3/ uL no refere nce range establ ished Not Available [facility] (Lab) [address] [facility], [place], [address], 04/02/2025 16:43:21 03/30/20 25 03/30/2025 CBC W/DIF F neutrophils 73.0 % 34.0-7 3.0 Not Available [facility] (Lab) [address] [facility], [place], [address], 04/02/2025 16:43:21 03/30/20 25 03/30/2025 CBC W/DIF F lymphocytes 20.3 % 15.0-5 0.0 Not Available [facility] (Lab) [address] [facility], [place], [address], 04/02/2025 16:43:21 03/30/20 25 03/30/2025 CBC W/DIF F monocytes 5.5 % 1.0-15 .0 Not Available [facility] (Lab) [address] [facility], [place], [address], 04/02/2025 16:43:21 03/30/20 25 03/30/2025 CBC W/DIF F eosinophils 0.6 % 0.0-8. 0 Not Available [facility] (Lab) [address] [facility], [place], [address], 04/02/2025 16:43:21 03/30/20 25 03/30/2025 CBC W/DIF F basophils 0.3 % 0.0-2. 0 Not Available [facility] (Lab) [address] [place], [address], 04/02/2025 16:43:21 03/30/20 25 03/30/2025 CBC W/DIF [...] separ ately if prese nt. Not Available [facility] (Lab) [address] [facility], [place], [address], 04/02/2025 16:43:21 03/30/20 25 03/30/2025 CBC W/DIF F absolute neutrophils 5.8 10'3/ uL 1.5-8. 0 Not Available [facility] (Lab) [address] [facility], [place], [address], 04/02/2025 16:43:21 03/30/20 25 03/30/2025 CBC W/DIF F absolute lymphocytes 1.6 10'3/ uL 1.0-4. 0 Not Available [facility] (Lab) [address] [facility], [place], [address], 04/02/2025 16:43:21 03/30/20 25 03/30/2025 CBC W/DIF F absolute monocytes 0.4 10'3/ uL 0.2-1. 0 Not Available [facility] (Lab) [address] [facility], [place], [address], 04/02/2025 16:43:21 03/30/20 25 03/30/2025 CBC W/DIF F absolute eosinophils 0.1 10'3/ uL 0.0-0. 6 Not Available [facility] (Lab) [address] [facility], [place], [address], 04/02/2025 16:43:21 03/30/20 25 03/30/2025 CBC W/DIF F absolute basophils 0.0 10'3/ uL 0.0-0. 3 Not Available [facility] (Lab) [address] [facility], [place], [address], 04/02/2025 16:43:21 03/30/2003/30/2025 CBC W/DIF F absolute immature granulocytes 0.0 10'3/ uL 0.00-0 .10 : Not Hispa juni or Latin o Refer ence range s for nonbi nary/ inter sex or unspe cifie d gende r patie nts have not been estab lishe d. [facility]as e [facility] for range s estab lishe d for cisge nder patie nts and evalu ate in the clini mohit yong xt of the indiv idual patie nt: https ://la bhand book. nm.or g/gen derx Not Available [facility] (Lab) [address], [place], [address], 04/02/2025 16:43:21 03/30/2003/30/2025 HEPAT ITIS C ANTIB CLAUDETTE SCREE N, REFLE X TO CONFI RMATI ON hepatitis C antibody Non-re active non-re active Antib odies to HCV Not Detec luis, does not exclu de the possi bilit y of expos ure to HCV. : Not Hispa juni or Latin o Not Available [facility] (Lab) [address], [place], [address], 04/02/2025 16:43:21 03/30/2003/30/2025 HEPAT ITIS B SURFA [...] Hispa juni or Latin o Not Available [facility] (Lab) [address], [place], [address], 04/02/2025 16:43:22 03/30/2003/30/2025 HIV 1/2 ANTIG EN/AN TIBOD Y, REFLE X CONFI RMATI ON HIV antigen/anti body Nonrea ctive nonrea ctive : Not Hispa juni or Latin o HIV-1 antig en and HIV-1 /HIV- 2 antib odies were not detec luis. No labor atory evide nce of HIV infec tion. Not Available [facility] (Lab) [address] [facility], [place], [address], 04/02/2025 16:43:22 03/30/20 25 03/30/2025 TYPE/ RH/SC REEN ABO/Rh type A POS Not Available [facility] (Lab) [address] [facility], [place], [address], 04/02/2025 16:43:23 03/30/20 25 03/30/2025 TYPE/ RH/SC REEN antibody screen NEG Not Available [facility] (Lab) [address] [facility], [place], [address], 04/02/2025 16:43:23 03/30/20 25 03/30/2025 TYPE/ RH/SC REEN exp date 2024 23:59 Not Available [facility] (Lab) [address] [facility], [place], [address], 04/02/2025 16:43:23 03/30/20 25 03/30/2025 RUBEL LA IGG ANTIB CLAUDETTE, QUANT rubella antibodies, IgG Reacti ve reacti ve Not Available [facility] (Lab) [address] [facility], [place], [address], 04/02/2025 16:43:23 03/30/20 25 03/30/2025 RUBEL LA IGG ANTIB CLAUDETTE, QUANT rubella antibodies, IgG quant 20.6 IU/mL >=10 : Not Hispa juni or Latin o Non-r eacti ve (Non- Immun e) <10 IU/mL React luli (Immu ne) > or = 10 IU/mL Not Available [facility] (Lab) [address] [facility], [place], [address], 04/02/2025 16:43:23 03/30/20 25 03/30/2025 HEMOG LOBIN [...] >8.0% Actio n sugge sted Not Available [facility] (Lab) [address] [facility], [place], [address], 04/02/2025 16:43:23 03/30/20 25 03/30/2025 RPR SCREE N, REFLE X TITER /CONF IRMAT ION RPR qualitative Nonrea ctive nonrea ctive : Not Hispa juni or Latin o Not Available [facility] (Lab) [address] [facility], [place], [address], 04/02/2025 16:43:24 03/30/20 25 03/30/2025 LEAD, BLOOD (ADUL T/PED IATRI C) lead, whole blood <1.0 mcg/d L <3.5 See Note 1 Héctor sis was perfo rmed by Stephani Burrows ed Plasm a Mass Spect romet ry (ICPM S) Note 1 This test was devel oped and its héctor tical perfo rmanc e rubens cteri stics have been deter mined by [facility]. It has not been clear ed or appro ahmet by the FDA. This assay has been valid ated pursu ant to the CLIA regul ation s and is used for clini mohit purpo ses. : Not Hispa juni or Latin o Perfo rming Organ izati on Infor matio n: Site ID: CB Name: [facility]Reid ayo Resendez Addre ss: [address] [place] [place] [address] Direc tor: Carlie Rivera s Not Available [facility] (Lab) [address] [facility], [place], [address], 04/02/2025 16:43:24 07/21/2007/21/2025 HEMAT OCRIT (HCT) HCT 39.0 % (based on docume nted legal sex) 34.0-4 5.0 Not Available [facility] (Lab) [address] [facility], [place], [address], 07/22/2025 13:19:40 07/21/20 25 07/21/2025 HEMOG LOBIN (HGB) HGB 13.1 g/dL (based on docume nted legal sex) 11.6-1 5.4 Not Available [facility] (Lab) [address] [facility], [place], [address], 07/22/2025 13:19:40 07/21/20 25 07/21/2025 GTT - GESTA LAUREN L NELSY Chisholm, ACOG OB glucose, 1 hour screen 122 mg/dL 70-135 Not Available [facility] (Lab) [address] [facility], [place], [address], 07/22/2025 13:19:40 07/21/2007/21/2025 HIV 1/2 ANTIG EN/AN TIBOD Y, REFLE X CONFI RMATI ON HIV antigen/anti body Nonrea ctive nonrea ctive HIV-1 antig en and HIV-1 /HIV- 2 antib odies were not detec luis. No labor atory evide nce of HIV infec tion. Not Available [facility] (Lab) [address] [facility], [place], [address], 07/22/2025 13:19:41 07/21/2007/21/2025 RPR SCREE N, REFLE X TITER /CONF IRMAT ION RPR qualitative Nonrea ctive nonrea ctive Not Available [facility] (Lab) [address] [facility], [place], [address], 07/22/2025 13:19:41 03/30/20 25 03/30/2025 US, obste tric, nucha l trans lucen cy No observ ation record ed. [email or web address] Melod[address], [place], [address], 03/31/2025 10:09:17 03/30/20 25 03/30/2025 US, obste tric, nucha l trans lucen cy No observ ation record ed. [address], [place], [address], 03/30/2025 18:43:35 05/27/20 25 05/27/2025 US, obste tric, 2nd or 3rd trime ster No observ ation record ed. [facility] [address], [place], [address], 05/27/2025 13:35:00 05/27/20 25 05/27/2025 US, obste tric, 2nd or 3rd trime ster No observ ation record ed. [email or web address] [address], [place], [address], 05/27/2025 16:07:50 06/24/20 25 06/24/2025 US, obste tric, follo w-up No observ ation record ed. [facility] [address], [place], [address], 06/24/2025 17:08:43 06/24/20 25 06/24/2025 US, obste tric, follo w-up No observ ation record ed. [email or web address] [address], [place], [address], 06/24/2025 17:02:28 07/21/20 25 07/21/2025 US, obste tric, follo w-up No observ ation record ed. [facility] [address], [place], [address], 07/21/2025 15:22:55 07/21/20 25 07/21/2025 US, obste tric, follo w-up No observ ation record ed. [email or web address] [address], [place], [address], 07/22/2025 01:37:08 08/19/20 25 08/19/2025 US, obste tric, follo w-up No observ ation record ed. [email or web address] [place] [address], [place], [address], 08/19/2025 17:07:11 08/19/20 25 08/19/2025 US, obste tric, follo w-up No observ ation record ed. AGNIESZKA Sewell [address], [place], [address], 08/22/2025 10:39:24 09/14/20 25 09/14/2025 US, obste tric, follo w-up No observ ation record ed. [email or web address] [place] [address], [place], [address], 09/14/2025 17:58:23 09/14/20 25 09/14/2025 US, obste tric, follo w-up No observ ation record ed. AGNIESZKA Sewell [address], [place], [address], 09/18/2025 09:36:54 Result Notes None recorded. Problems Name Problem SNOMED Code Status Onset Date Resolution Date Notes Provider Name and Address Organization Details Recorded Time 99775085 Active 2024 Sindy levin [place] - [facility] 12:54:51 Abnormal placenta affecting management of mother 51468356 Active 2024 serial growth US RICO VAUGHN MD [address], [place], [address], [place] [facility] 5 11:08:27 Problem Notes None recorded. Procedures Surgical History Date Name Laterality Status Provider Name and Address Organization Details Recorded Time 5 Date of Last Pap Smear completed Sindy Sanchez [facility] 03/03/2025 16:18:09 9 Breast reduction completed Kelley Doyle [facility] 01/26/2025 14:37:39 Imaging Results None recorded. [...] Updated DateTime 08/19/2025 165.1 cm 31.1 kg/m2 22467.77 g 108/69 mm[Hg] Mehreen Verdugo [facility] 08/19/2025 16:25:07 Social History Question Answer Notes LastModified by Organizat ion Details LastModified Time Tobacco Smoking Status [facility] 01/26/2025 14:37:11 Do You Have An Advance Directive? No [email or web address] Information n ot available 01/26/2025 How Many Years Have You Consumed Alcohol? 5 [email or web address] Information not available 01/26/2025 Are You Blind Or Do You Have Difficulty Seeing? No [email or web address] Information n ot available 01/26/2025 What Is Your Level Of Caffeine Consumption? Moderate Information not available 01/26/2025 In The 14 Days Before Symptom Onset, Have You Had Close Contact With A Laboratory-confirm ed COVID-19 While That Case Was Ill? No [email or web address] Information n ot available 01/26/2025 In The 14 Days Before Symptom Onset, Have You Had Close Contact With A Person Who Is Under Investigation For COVID-19 While That Person Was Ill? No [email or web address] Information not available 01/26/2025 Have You Been To An Area Known To Be High Risk For COVID-19? No [email or web address] Information not available 01/26/2025 Are You Deaf Or Do You Have Serious Difficulty Hearing? No [email or web address] Information not available 01/26/2025 What Type Of Diet Are You Following? REGULAR [email or web address] Information n ot available 01/26/2025 What Is The Highest Grade Or Level Of School You Have Completed Or The Highest Degree You Have Received? CD50990-7 [email or web address] Information not available 01/26/2025 Are There Any Guns Present In Your Home? Yes [email or web address] Information not available 01/26/2025 Have You Ever Been Counseled For Unhealthy Alcohol Use? No [email or web address] Information not available 05/27/2025 Do You Use Protection During Sex? No [email or web address] Information not available 01/26/2025 Do You Use Your Seat Belt Or Car Seat Routinely? Yes [email or web address] Information not available 01/26/2025 Are You Sexually Active? Yes [email or web address] Information not available 01/26/2025 Do You Have Smoke And Carbon Monoxide Detectors In Your Home? Yes Information not available 01/26/2025 How Much Tobacco Do You Smoke? No Information not available 01/26/2025 Do You Use Sunscreen Routinely? Yes Information not available 01/26/2025 Has Tobacco Cessation Counseling Been Provided? No Information not available 05/27/2025 Have You Used IV Drugs? No [email or web address] Information not available 01/26/2025 Do You Have Difficulty Walking Or Climbing Stairs? No [email or web address] Information not available 01/26/2025 Sex: Unknown Functional Status Question Answer Note LastModified by Organizat ion Details LastModified Time Do you use any illicit or recreational drugs? No [email or web address] Information not available 01/26/2025 What is your level of alcohol consumption? Occasional [email or web address] Information not available 01/26/2025 Are you currently employed? Yes [email or web address] Information not available 01/26/2025 Are you able to walk independently without assistance or assistive devices? YESWOREST [email or web address] Information not available 01/26/2025 Are you able to care for yourself independently? 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 No [email or web address] Information not available 01/26/2025 What is your exercise level? Moderate [email or web address] Information not available 01/26/2025 Mental Status Question Answer Note LastModified by Organization D etails LastModified Time Do you feel stressed (tense, restless, nervous, or anxious, or unable to sleep at night)? [id number] [email or web address] Information not available 01/26/2025 Family History Relationship Description Onset Age of this Age Resolved Age Notes LastModified by Organization Details LastModified Time Mother Malignant neoplasm of breast 41 Double mastec marium - stage 1 [email or web address] Not available 07/21/2025 09:35:24 Mother Malignant neoplasm of breast [email or web address] Not available 2024 10:54:50 Medical History Condition Response Allergies (Food, seasonal, environmental ) N Other N Drug/Latex Allergies/Reactions N Breast Cancer N Blood Transfusion N Dermatologic Disorders N [...] ICD10 Code Diagnosis IMO Codes Diagnosis Note [id number] RICO VAUGHN MD [place] [address],[place] [address] 07/21/2025 09:35:16 07/21/2025 10:32:24 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.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 Z3A.28 1905865 [id number] RICO VAUGHN MD [place] [address],[place] [address] 07/21/2025 09:35:34 07/21/2025 10:55:24 Abnormal placenta affecting management of mother 97012901 O43.199 72196556 - serial growth US Gestation period, 28 weeks 85844939 Z3A.28 6027133 [id number] Bernice Funez [facility] [address] [place] [address] 08/05/2025 14:24:29 08/05/2025 14:52:26 Gestation period, 30 weeks 09074846 Z3A.30 8218909 [id number] RICO VAUGHN MD [place] [address] [place] [address] 08/19/2025 15:47:49 08/19/2025 16:29:31 Anomaly of placenta 57365949 O43.103 Z3A.32 0953107 [id number] RICO VAUGHN MD [place] [address] [place] [address] 08/19/2025 15:48:09 08/19/2025 16:58:48 Abnormal placenta affecting management of mother 22199399 O43.199 76906070 - serial growth US Gestation period, 32 weeks 9975153 Z3A.32 7628560 - continue [facility] Concerns Section Related Observation LastModified by Organization Megan de la o LastModified Time None Recorded Concern Status LastModified by Organization Details LastModified Time None Recorded Payers Encounter Date Sequence Insurance Name Policy Number Policy Serrato Covered Member ID Serrato Member ID Guarantor Name 08/19/2025 1 [employer] [id number] Eric Tolbert [id number] Renata Tolbert Notes Date Note Type Note Provider Name and Address Organization Details Recorded Time 08/19/2025 text/html Generic HPI TemplateReported by Patient RICO VAUGHN MD [address], [place], [address], [facility] 08/19/2025 16:49:46 OBGyn Episode Ob Episode Information Episode Created Date Number of Fetuses Patient Bloodtype Patient rh Status Prepregnancy Weight lbs Domestic Partner Domestic Partner Phone Father Name Sales Porter Status 03/30/20 25 1 A Positive 147 Eric OPEN Fetus Data First Name Last Name Admitted to NICU Weight (g) Sex Living Outcome Pediatric Complications Fetus ID Race Codes Race Delivery Type [id number] Problems Problem Notes Problem Name Start Date End Date Resolution Snomed Code Not e Abnormal placenta affecting management of mother 05/27/2025 [id number] serial growth U Enio Calculation Initial Enio [...] Date Ultra Sound Latest Days Gestation 0 [email or web address] 03/30/2025 10/12/20 25 0 Pre- Flowsheet Flowsheet Date 03/30/2025 Suresh Score Blood Edema Fundus Height Fundus Units Glucose Ketones Leukocytes Nitrite Labor Signs Protein Cervic Dilation Cervic Effacement Cervic Station Type Weight in lbs Pre/Post Dialysis Refused Weight 154.03687868604 BP Diastolic BP Location Tested BP Systolic BP Type 74 L arm 107 sitting Fetus Heart Rate Present A Present Fetus Movement A No Comments Patient presents to [facility] care. Hx of uncomplicated . otherwise uncomplicated. No nausea or cramping. NT/NB wnl today, desires NIPT. Will draw today with new OB labs. RTC 4 weeks for routine care. Flowsheet Date 04/27/2025 Suresh Score Blood Edema Fundus Height Fundus Units Glucose Ketones Leukocytes Nitrite Labor Signs Protein Cervic Dilation Cervic Effacement Cervic Station Type Weight in lbs Pre/Post Dialysis Refused Weight 160.115595483827 BP Diastolic BP Location Tested BP Systolic [...] Type Weight in lbs Pre/Post Dialysis Refused [id number] BP Diastolic BP Location Tested BP Systolic [...] Type Weight in lbs Pre/Post Dialysis Refused [id number] BP Diastolic BP Location Tested BP Systolic [...] Type Weight in lbs Pre/Post Dialysis Refused [phone] BP Diastolic BP Location Tested BP Systolic [...] Type Weight in lbs Pre/Post Dialysis Refused [id number] BP Diastolic BP Location Tested BP Systolic [...] Weight in lbs Pre/Post Dialysis Refused Weight 187.663419088210 BP Diastolic BP Location Tested BP Systolic [...] Weight in lbs Pre/Post Dialysis Refused Weight [id number] BP Diastolic BP Location Tested BP Systolic [...] Type Weight in lbs Pre/Post Dialysis Refused 194.310459212437 BP Diastolic BP Location Tested BP Systolic [...] Weight in lbs Pre/Post Dialysis Refused Weight 196.182220896511 BP Diastolic BP Location Tested BP Systolic [...] Type Weight in lbs Pre/Post Dialysis Refused 196.158303555062 BP Diastolic BP Location Tested BP Systolic [...]
--- OUTSIDE RECORDS SUMMARY | 2025-10-02 05:57 | XMS_ITS | Continuity of Care Document ---
Author Organization [facility] [place] Address [address] [place] [address] Assessment No assessment recorded. Plan of Treatment [...] Billio n[facility]one [address], [place], [address], 04/04/2025 15:29:25 04/04/20 25 04/04/2025 [UNIT Y] ANEUP LOIDY NIPT 22Q11.2 microdeletio n LOW RISK <1 in 10,000 normal Not Available [facility] [address], [place], [address], 04/04/2025 15:29:25 04/04/20 25 04/04/2025 [UNIT Y] ANEUP LOIDY NIPT sex chromosome aneuploidy NOT DETECT ED normal Not Available [facility] [address], [place], [address], 04/04/2025 15:29:25 04/04/20 25 04/04/2025 [UNIT Y] ANEUP LOIDY NIPT monosomy X LOW RISK <1 in 10,000 normal Not Available [facility] [address], [place], [address], 04/04/2025 15:29:25 04/04/20 25 04/04/2025 [UNIT Y] ANEUP LOIDY NIPT trisomy 13 LOW RISK <1 in 10,000 normal Not Available [facility] [address], [place], [address], 04/04/2025 15:29:25 04/04/20 25 04/04/2025 [UNIT Y] ANEUP LOIDY NIPT trisomy 18 LOW RISK <1 in 10,000 normal Not Available [facility] [address], [place], [address], 04/04/2025 15:29:25 04/04/20 25 04/04/2025 [UNIT Y] ANEUP LOIDY NIPT trisomy 21 LOW RISK <1 in 10,000 normal Not Available [facility] [address], [place], [address], 04/04/2025 15:29:25 04/04/20 25 04/04/2025 [UNIT Y] ANEUP LOIDY NIPT sex MALE normal Not Available [facility] [address], [place], [address], 04/04/2025 15:29:25 04/04/20 25 04/04/2025 [UNIT Y] ANEUP LOIDY NIPT gestation SINGLE TON normal Not Available [facility] [address], [place], [address], 04/04/2025 15:29:25 04/04/20 25 04/04/2025 [UNIT Y] ANEUP LOIDY NIPT for detailed report, see pdf See PDF normal Not Available [facility] [address], [place], [address], 04/04/2025 15:29:25 04/11/20 25 04/11/2025 [UNIT Y] THOMAS WHITTINGTON Kathrine sickle cell disease/beta -thalassemia /hemoglobino pathies carrier screen NEGATI VE normal Not Available [facility] [address], [place], [address], 04/11/2025 12:08:11 04/11/20 25 04/11/2025 [UNIT Y] THOMAS WHITTINGTON Kathrine alpha-thalas semia carrier screen NEGATI VE normal Not Available [facility] [address], [place], [address], 04/11/2025 12:08:11 04/11/20 25 04/11/2025 [UNIT Y] THOMAS WHITTINGTON Kathrine cystic fibrosis carrier screen NEGATI VE normal Not Available [facility] [address], [place], [address], 04/11/2025 12:08:11 04/11/20 25 04/11/2025 [UNIT Y] THOMAS WHITTINGTON Kathrine spinal muscular atrophy carrier screen NEGATI VE 2 SMN1 copies , SNP not presen t normal Not Available [facility] [address], [place], [address], 04/11/2025 12:08:11 04/11/20 25 04/11/2025 [UNIT Y] THOMAS WHITTINGTON Kathrine for detailed report, see pdf See PDF normal Not Available [facility] [address], [place], [address], 04/11/2025 12:08:11 03/30/20 25 03/30/2025 CULTU RE: URINE result report SEE RESULT S BELOW Test: Cultu re: Urine Speci men Sourc e: Urine Voide d Speci men Type: Urine Speci men Date: 2024 1419 Resul t Date: 2024 2343 Resul t Statu s: Final resul t Abnor mal: No Resul ting Lab: [facility] [address] [facility] [address] Tel: CULTU RE ----- ----- ----- --- Organ ism(s ) consi stent with uroge nital or skin deja . Repea t cultu re if sympt oms indic ate. Not Available [facility] (Lab) [address] [facility], [place], [address], 04/01/2025 00:46:12 03/30/20 25 03/30/2025 CBC W/DIF F WBC 8.0 10'3/ uL 3.5-10 .5 Not Available [facility] (Lab) [address] [facility], [place], [address], 04/02/2025 16:43:21 03/30/20 25 03/30/2025 CBC W/DIF F RBC 4.19 10'6/ uL (based on docume nted legal sex) 3.80-5 .20 Not Available [facility] (Lab) [address] [facility] [address], [place], [address], 04/02/2025 16:43:21 03/30/20 25 03/30/2025 CBC W/DIF F HGB 13.3 g/dL (based on docume nted legal sex) 11.6-1 5.4 Not Available [facility] (Lab) [address] [place], [address], 04/02/2025 16:43:21 03/30/20 25 03/30/2025 CBC W/DIF F HCT 39.6 % (based on docume nted legal sex) 34.0-4 5.0 Not Available [facility] (Lab) [address] [place], [address], 04/02/2025 16:43:21 03/30/20 25 03/30/2025 CBC W/DIF F MCV 94.5 fL 80.0-9 9.0 Not Available [facility] (Lab) [address] [place], [address], 04/02/2025 16:43:21 03/30/20 25 03/30/2025 CBC W/DIF F MCH 31.7 pg 27.0-3 4.0 Not Available [facility] (Lab) [address] [facility] [address], [place], [address], 04/02/2025 16:43:21 03/30/20 25 03/30/2025 CBC W/DIF F MCHC 33.6 g/dL 32.0-3 5.5 Not Available [facility] (Lab) [address] [facility] [address], [place], [address], 04/02/2025 16:43:21 03/30/20 25 03/30/2025 CBC W/DIF F RDW 12.7 % 11.0-1 5.0 Not Available [facility] (Lab) [address] [facility], [place], [address], 04/02/2025 16:43:21 03/30/20 25 03/30/2025 CBC W/DIF F plt 307 10'3/ uL 150-40 0 Not Available [facility] (Lab) [address] [facility] [address], [place], [address], 04/02/2025 16:43:21 03/30/20 25 03/30/2025 CBC W/DIF F MPV 10.2 fL 8.8-12 .1 Not Available [facility] (Lab) [address] [facility] [address], [place], [address], 04/02/2025 16:43:21 03/30/20 25 03/30/2025 CBC W/DIF F NRBC's 0.0 % 0.0 Not Available [facility] (Lab) [address] [facility], [place], [address], 04/02/2025 16:43:21 03/30/20 25 03/30/2025 CBC W/DIF F absolute NRBCs 0.0 10'3/ uL no refere nce range establ ished Not Available [facility] (Lab) [address] [facility], [place], [address], 04/02/2025 16:43:21 03/30/20 25 03/30/2025 CBC W/DIF F neutrophils 73.0 % 34.0-7 3.0 Not Available [facility] (Lab) [address] [facility], [place], [address], 04/02/2025 16:43:21 03/30/20 25 03/30/2025 CBC W/DIF F lymphocytes 20.3 % 15.0-5 0.0 Not Available [facility] (Lab) [address] [facility], [place], [address], 04/02/2025 16:43:21 03/30/20 25 03/30/2025 CBC W/DIF F monocytes 5.5 % 1.0-15 .0 Not Available [facility] (Lab) [address] [facility] [address], [place], [address], 04/02/2025 16:43:21 03/30/20 25 03/30/2025 CBC W/DIF F eosinophils 0.6 % 0.0-8. 0 Not Available [facility] (Lab) [address] [place], [address], 04/02/2025 16:43:21 03/30/20 25 03/30/2025 CBC W/DIF F basophils 0.3 % 0.0-2. 0 Not Available [facility] (Lab) [address] [facility], [place], [address], 04/02/2025 16:43:21 03/30/20 25 03/30/2025 CBC W/DIF [...] ately if prese nt. Not Available [facility] (Lab) [address] [facility], [place], [address], 04/02/2025 16:43:21 03/30/20 25 03/30/2025 CBC W/DIF F absolute neutrophils 5.8 10'3/ uL 1.5-8. 0 Not Available [facility] (Lab) [address] [facility], [place], [address], 04/02/2025 16:43:21 03/30/20 25 03/30/2025 CBC W/DIF F absolute lymphocytes 1.6 10'3/ uL 1.0-4. 0 Not Available [facility] (Lab) [address] [facility], [place], [address], 04/02/2025 16:43:21 03/30/20 25 03/30/2025 CBC W/DIF F absolute monocytes 0.4 10'3/ uL 0.2-1. 0 Not Available [facility] (Lab) [address] [facility], [place], [address], 04/02/2025 16:43:21 03/30/20 25 03/30/2025 CBC W/DIF F absolute eosinophils 0.1 10'3/ uL 0.0-0. 6 Not Available [facility] (Lab) [address] [facility], [place], [address], 04/02/2025 16:43:21 03/30/20 25 03/30/2025 CBC W/DIF F absolute basophils 0.0 10'3/ uL 0.0-0. 3 Not Available [facility] (Lab) [address] [facility], [place], [address], 04/02/2025 16:43:21 03/30/20 25 03/30/2025 CBC W/DIF [...] spears book. nm.or g/gen derx Not Available [facility] (Lab) [address], [place], [address], 04/02/2025 16:43:21 03/30/2003/30/2025 HEPAT ITIS C ANTIB CLAUDETTE SCREE N, REFLE X TO CONFI RMATI ON hepatitis C antibody Non-re active non-re active Antib odies to HCV Not Detec luis, does not exclu de the possi bilit y of expos ure to HCV. : Not Hispa juni or Latin o Not Available [facility] (Lab) [address], [place], [address], 04/02/2025 16:43:21 03/30/2003/30/2025 HEPAT ITIS B SURFA [...] juni or Latin o Not Available [facility] (Lab) [address], [place], [address], 04/02/2025 16:43:22 03/30/2003/30/2025 HIV 1/2 ANTIG EN/AN TIBOD Y, REFLE X CONFI RMATI ON HIV antigen/anti body Nonrea ctive nonrea ctive : Not Hispa juni or Latin o HIV-1 antig en and HIV-1 /HIV- 2 antib odies were not detec luis. No labor atory evide nce of HIV infec tion. Not Available [facility] (Lab) [address], [place], [address], 04/02/2025 16:43:22 03/30/20 25 03/30/2025 TYPE/ RH/SC REEN ABO/Rh type A POS Not Available [facility] (Lab) [address], [place], [address], 04/02/2025 16:43:23 03/30/20 25 03/30/2025 TYPE/ RH/SC REEN antibody screen NEG Not Available [facility] (Lab) [address], [place], [address], 04/02/2025 16:43:23 03/30/20 25 03/30/2025 TYPE/ RH/SC REEN exp date 2024 23:59 Not Available [facility] (Lab) [address] [facility], [place], [address], 04/02/2025 16:43:23 03/30/20 25 03/30/2025 RUBEL LA IGG ANTIB CLAUDETTE, QUANT rubella antibodies, IgG Reacti ve reacti ve Not Available [facility] (Lab) [address] [facility], [place], [address], 04/02/2025 16:43:23 03/30/20 25 03/30/2025 RUBEL LA IGG ANTIB CLAUDETTE, QUANT rubella antibodies, IgG quant 20.6 IU/mL >=10 : Not Hispa juni or Latin o Non-r eacti ve (Non- Immun e) <10 IU/mL React luli (Immu ne) > or = 10 IU/mL Not Available [facility] (Lab) [address] [facility], [place], [address], 04/02/2025 16:43:23 03/30/20 25 03/30/2025 HEMOG LOBIN [...] Actio n sugge sted Not Available [facility] (Lab) [address], [place], [address], 04/02/2025 16:43:23 03/30/20 25 03/30/2025 RPR SCREE N, REFLE X TITER /CONF IRMAT ION RPR qualitative Nonrea ctive nonrea ctive : Not Hispa juni or Latin o Not Available [facility] (Lab) [address] [facility], [place], [address], 04/02/2025 16:43:24 03/30/20 25 03/30/2025 LEAD, BLOOD [...] Addre ss: [address] [place] [address] Direc tor: Carlie Rivera s Not Available [facility] (Lab) [address], [place], [address], 04/02/2025 16:43:24 07/21/20 25 07/21/2025 HEMAT OCRIT (HCT) HCT 39.0 % (based on docume nted legal sex) 34.0-4 5.0 Not Available [facility] (Lab) [address] [facility], [place], [address], 07/22/2025 13:19:40 07/21/20 25 07/21/2025 HEMOG LOBIN (HGB) HGB 13.1 g/dL (based on docume nted legal sex) 11.6-1 5.4 Not Available [facility] (Lab) [address] [facility], [place], [address], 07/22/2025 13:19:40 07/21/20 25 07/21/2025 GTT - GESTA LAUREN L NELSY N, ACOG OB glucose, 1 hour screen 122 mg/dL 70-135 Not Available [facility] (Lab) [address], [place], [address], 07/22/2025 13:19:40 07/21/20 25 07/21/2025 HIV 1/2 ANTIG EN/AN TIBOD Y, REFLE X CONFI RMATI ON HIV antigen/anti body Nonrea ctive nonrea ctive HIV-1 antig en and HIV-1 /HIV- 2 antib odies were not detec luis. No labor atory evide nce of HIV infec tion. Not Available [facility] (Lab) [address] [facility], [place], [address], 07/22/2025 13:19:41 07/21/20 25 07/21/2025 RPR SCREE N, REFLE X TITER /CONF IRMAT ION RPR qualitative Nonrea ctive nonrea ctive Not Available [facility] (Lab) [address] [place], [address], 07/22/2025 13:19:41 09/14/20 25 09/14/2025 CULTU RE: [...] t Abnor mal: No Resul ting Lab: [facility] [address] [facility] [address] Tel: CULTU RE ----- ----- ----- --- No Group B strep isola luis at 2 days (toyin ctive broth enhan cemen t) Not Available [facility] (Lab) [address], [place], [address], 09/17/2025 15:27:26 03/30/20 25 03/30/2025 US, obste tric, nucha l trans lucen cy No observ ation record ed. [email or web address] [address]ie [address], [place], [address], 03/31/2025 10:09:17 03/30/20 25 03/30/2025 US, obste tric, nucha l trans lucen cy No observ ation record ed. [email or web address] [place] [address], [place], [address], 03/30/2025 18:43:35 05/27/20 25 05/27/2025 US, obste tric, 2nd or 3rd trime ster No observ ation record ed. [email or web address] [place] [address], [place], [address], 05/27/2025 13:35:00 05/27/20 25 05/27/2025 US, obste tric, 2nd or 3rd trime ster No observ ation record ed. [email or web address] [address], [place], [address], 05/27/2025 16:07:50 06/24/20 25 06/24/2025 US, obste tric, follo w-up No observ ation record ed. [facility] [address], [place], [address], 06/24/2025 17:08:43 06/24/20 25 06/24/2025 US, obste tric, follo w-up No observ ation record ed. [email or web address] [address], [place], [address], 06/24/2025 17:02:28 07/21/20 25 07/21/2025 US, obste tric, follo w-up No observ ation record ed. [facility] [address], [place], [address], 07/21/2025 15:22:55 07/21/20 25 07/21/2025 US, obste tric, follo w-up No observ ation record ed. [email or web address] [address], [place], [address], 07/22/2025 01:37:08 08/19/20 25 08/19/2025 US, obste tric, follo w-up No observ ation record ed. [email or web address] [place] [address], [place], [address], 08/19/2025 17:07:11 08/19/20 25 08/19/2025 US, obste tric, follo w-up No observ ation record ed. [email or web address] [place]ie [address], [place], [address], 08/22/2025 10:39:24 09/14/20 25 09/14/2025 US, obste tric, follo w-up No observ ation record ed. [email or web address] [place] [address], [place], [address], 09/14/2025 17:58:23 09/14/20 25 09/14/2025 US, obste tric, follo w-up No observ ation record ed. [email or web address] Sewell [address], [place], [address], 09/18/2025 09:36:54 Result Notes None recorded. Problems Name Problem SNOMED Code Status Onset Date Resolution Date Notes Provider Name and Address Organization Details Recorded Time 87840378 Active 2024 Sindy Sanchez null, [facility] 5 12:54:51 Abnormal placenta affecting management of mother 71670176 Active 2024 serial growth US RICO VAUGHN MD [address], [place], [address], [facility] 11:08:27 Problem Notes None recorded. Procedures Surgical History Date Name Laterality Status Provider Name and Address Organization Details Recorded Time Date of Last Pap Smear completed Sindy Sanchez [facility] 03/03/2025 16:18:09 9 [facility] 01/26/2025 14:37:39 Imaging Results None recorded. [...] Updated DateTime 09/20/2025 165.1 cm 32.7 kg/m2 80737.98 g 109/74 mm[Hg] [facility] 09/20/2025 16:22:16 Social History Question Answer Notes LastModified by Organizat ion Details LastModified Time Tobacco Smoking Status Never Smoker Kelley Doyle [facility] 01/26/2025 14:37:11 Do You Have An Advance Directive? No [email or web address] Information n ot available 01/26/2025 How Many Years Have You Consumed Alcohol? 5 [email or web address] Information not available 01/26/2025 Are You Blind Or Do You Have Difficulty Seeing? No [email or web address] Information n ot available 01/26/2025 What Is Your Level Of Caffeine Consumption? Moderate [email or web address] Information not available 01/26/2025 In The 14 Days Before Symptom Onset, Have You Had Close Contact With A Laboratory-confirm ed COVID-19 While That Case Was Ill? No [email or web address] Information n ot available 01/26/2025 In The 14 Days Before Symptom Onset, Have You Had Close Contact With A Person Who Is Under Investigation For COVID-19 While That Person Was Ill? No [email or web address] Information not available 01/26/2025 Have You Been To An Area Known To Be High Risk For COVID-19? No [email or web address] Information not available 01/26/2025 Are You Deaf Or Do You Have Serious Difficulty Hearing? No [email or web address] Information not available 01/26/2025 What Type Of Diet Are You Following? REGULAR [email or web address] Information n ot available 01/26/2025 What Is The Highest Grade Or Level Of School You Have Completed Or The Highest Degree You Have Received? BM84996-5 [email or web address] Information not available 01/26/2025 Are There Any Guns Present In Your Home? Yes [email or web address] Information not available 01/26/2025 Have You Ever Been Counseled For Unhealthy Alcohol Use? No Information not available 05/27/2025 Do You Use Protection During Sex? No [email or web address] Information not available 01/26/2025 Do You Use Your Seat Belt Or Car Seat Routinely? Yes [email or web address] Information not available 01/26/2025 Are You Sexually Active? Yes [email or web address] Information not available 01/26/2025 Do You Have Smoke And Carbon Monoxide Detectors In Your Home? Yes [email or web address] Information not available 01/26/2025 How Much Tobacco Do You Smoke? No [email or web address] Information not available 01/26/2025 Do You Use Sunscreen Routinely? Yes [email or web address] Information not available 01/26/2025 Has Tobacco Cessation Counseling Been Provided? No [email or web address] Information not available 05/27/2025 Have You Used IV Drugs? No Information not available 01/26/2025 Do You Have Difficulty Walking Or Climbing Stairs? No [email or web address] Information not available 01/26/2025 Sex: Unknown Functional Status Question Answer Note LastModified by Organizat ion Details LastModified Time Do you use any illicit or recreational drugs? No [email or web address] Information not available 01/26/2025 What is your level of alcohol consumption? Occasional [email or web address] Information not available 01/26/2025 Are you currently employed? Yes [email or web address] Information not available 01/26/2025 Are you able to walk independently without assistance or assistive devices? YESWOREST [email or web address] Information not available 01/26/2025 Are you able to care for yourself independently? 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 No [email or web address] Information not available 01/26/2025 What is your exercise level? Moderate Information not available 01/26/2025 Mental Status Question Answer Note LastModified by Organization D etails LastModified Time Do you feel stressed (tense, restless, nervous, or anxious, or unable to sleep at night)? MT2966-2 [email or web address] Information not available 01/26/2025 Family History Relationship Description Onset Age of this Age Resolved Age Notes LastModified by Organization Details LastModified Time Mother Malignant neoplasm of breast 41 Double mastec marium - stage 1 [email or web address] Not available 07/21/2025 09:35:24 Mother Malignant neoplasm of breast [email or web address] Not available 2024 10:54:50 Medical History Condition Response Allergies (Food, seasonal, environmental ) N Other N Drug/Latex Allergies/Reactions N Breast Cancer N Blood Transfusion N Lung Disease N Dermatologic Disorders N Defects or Inherited Disease N Breast Problem N Gestational Diabetes N Hematologic disorders N Anesthesia Complications N History of STI N Deep Vein Thrombosis N Polycystic ovary syndrome N Anxiety Disorder N Autoimmune disease N Arthritis N Polyps N Infertility N History of abnormal pap N Acid Reflux (GERD) N Cancer N [...] ICD10 Code Diagnosis IMO Codes Diagnosis Note [id number] RICO VAUGHN MD [place] [address],[place] [address] 09/02/2025 14:23:27 09/02/2025 14:56:42 Abnormal placenta affecting management of mother 81023504 O43.199 36981009 - serial growth US Gestation period, 34 weeks 81540096 Z3A.34 [id number] MD Lalo HENDERSON [address],[facility] [address] 09/14/2025 15:53:59 09/14/2025 16:45:06 Anomaly of placenta 61495921 O43.103 Z3A.36 [id number] RICO VAUGHN MD [place] [address],[place] [address] 09/14/2025 15:54:35 09/14/2025 17:21:21 Abnormal placenta affecting management of mother 80413259 O43.199 88062264 - serial growth US Gestation period, 36 weeks 70757683 Z3A.36 8262587 - continue PNV [id number] RICO VAUGHN MD [place] [address] [address] 09/20/2025 16:07:26 09/20/2025 16:51:07 Abnormal placenta affecting management of mother 26531765 O43.199 92161805 - serial growth US Gestation period, 36 weeks 60764712 Z3A.36 5384313 - continue PNV Health Concerns Section Related Observation LastModified by Organization Detai ls LastModified Time None Recorded Concern Status LastModified by Organization Details LastModified Time None Recorded Payers Encounter Date Sequence Insurance Name Policy Number Policy Serrato Covered Member ID Serrato Member ID Guarantor Name 09/20/2025 1 [employer] [id number] Eric Tolbert [id number] Yannphyllis Tolbert Notes Date Note Type Note Provider Name and Address Organization Details Recorded Time 09/20/2025 text/html Generic HPI TemplateReported by Patient RICO VAUGHN MD [address], [place], [address], [facility] 09/20/2025 16:32:54 OBGyn Episode Ob Episode Information Episode Created Date Number of Fetuses Patient Bloodtype Patient rh Status Prepregnancy Weight lbs Domestic Partner Domestic Partner Phone Father Name Residential Concierge Status 03/30/20 25 1 A Positive 147 Eric OPEN Fetus Data First Name Last Name Admitted to NICU Weight (g) Sex Living Outcome Pediatric Complications Fetus ID Race Codes Race Delivery Type [id number] Problems Problem Notes Problem Name Start Date End Date Resolution Snomed Code Not e Abnormal placenta affecting management of mother 05/27/2025 57272316 serial growth U S Enio Calculation Initial [...] Date Ultra Sound Latest Days Gestation 0 [email or web address] 03/30/2025 10/12/20 25 0 Pre- Flowsheet Flowsheet Date 03/30/2025 Suresh Score Blood Edema Fundus Height Fundus Units Glucose Ketones Leukocytes Nitrite Labor Signs Protein Cervic Dilation Cervic Effacement Cervic Station Type Weight in lbs Pre/Post Dialysis Refused Weight 154.61386175500 BP Diastolic BP Location Tested BP Systolic BP Type 74 L arm 107 sitting Fetus Heart Rate Present A Present Fetus Movement A No Comments Patient presents to [facility] care. Hx of uncomplicated . otherwise uncomplicated. No nausea or cramping. NT/NB wnl today, desires NIPT. Will draw today with new OB labs. RTC 4 weeks for routine care. Flowsheet Date 04/27/2025 Suresh Score Blood Edema Fundus Height Fundus Units Glucose Ketones Leukocytes Nitrite Labor Signs Protein Cervic Dilation Cervic Effacement Cervic Station Type Weight in lbs Pre/Post Dialysis Refused Weight 160.091416596302 BP Diastolic BP Location Tested BP Systolic [...] Type Weight in lbs Pre/Post Dialysis Refused 165.637411699948 BP Diastolic BP Location Tested BP Systolic BP Type 70 L arm 109 sitting Fetus Heart Rate Present A 158 Fetus Movement A Yes Comments Starting to feel movem ents. No cramping or bleeding. Anatomy complete and normal, EFW 48%. Small CP cysts on left, discussed with patient. Marginal cord insertion, plan for serial growth US. Going to [place] tomorrow! RTC 4 weeks. Flowsheet Date 06/24/2025 [...] Type Weight in lbs Pre/Post Dialysis Refused 174.09634919527 BP Diastolic BP Location Tested BP Systolic [...] Type Weight in lbs Pre/Post Dialysis Refused 182.826220489968 BP Diastolic BP Location Tested BP Systolic [...] Type Weight in lbs Pre/Post Dialysis Refused 186.004166763053 BP Diastolic BP Location Tested BP Systolic [...] Weight in lbs Pre/Post Dialysis Refused Weight 187.397649637503 BP Diastolic BP Location Tested BP Systolic [...] Weight in lbs Pre/Post Dialysis Refused Weight 190.864384673624 BP Diastolic BP Location Tested BP Systolic [...] Type Weight in lbs Pre/Post Dialysis Refused 194.726388703973 BP Diastolic BP Location Tested BP Systolic [...] Weight in lbs Pre/Post Dialysis Refused Weight [id number] BP Diastolic BP Location Tested BP Systolic [...] Type Weight in lbs Pre/Post Dialysis Refused [id number] BP Diastolic BP Location Tested BP Systolic [...]
--- OUTSIDE RECORDS SUMMARY | 2025-10-02 05:57 | XMS_ITS | Continuity of Care Document ---
Author Organization [facility] [place] Address [address] [place] [address] Assessment No assessment recorded. Plan of Treatment [...] [facility] [address], [place], [address], 04/04/2025 15:29:25 04/04/20 25 04/04/2025 [UNIT Y] ANEUP LOIDY NIPT 22Q11.2 microdeletio n LOW RISK <1 in 10,000 normal Not Available [facility] [address], [place], [address], 04/04/2025 15:29:25 04/04/20 25 04/04/2025 [UNIT Y] ANEUP LOIDY NIPT sex chromosome aneuploidy NOT DETECT ED normal Not Available [facility] [address], [place], [address], 04/04/2025 15:29:25 04/04/20 25 04/04/2025 [UNIT Y] ANEUP LOIDY NIPT monosomy X LOW RISK <1 in 10,000 normal Not Available [facility] [address], [place], [address], 04/04/2025 15:29:25 04/04/20 25 04/04/2025 [UNIT Y] ANEUP LOIDY NIPT trisomy 13 LOW RISK <1 in 10,000 normal Not Available [facility] [address], [place], [address], 04/04/2025 15:29:25 04/04/20 25 04/04/2025 [UNIT Y] ANEUP LOIDY NIPT trisomy 18 LOW RISK <1 in 10,000 normal Not Available [facility] [address], [place], [address], 04/04/2025 15:29:25 04/04/20 25 04/04/2025 [UNIT Y] ANEUP LOIDY NIPT trisomy 21 LOW RISK <1 in 10,000 normal Not Available [facility] [address], [place], [address], 04/04/2025 15:29:25 04/04/20 25 04/04/2025 [UNIT Y] ANEUP LOIDY NIPT sex MALE normal Not Available [facility] [address], [place], [address], 04/04/2025 15:29:25 04/04/20 25 04/04/2025 [UNIT Y] ANEUP LOIDY NIPT gestation SINGLE TON normal Not Available [facility] [address], [place], [address], 04/04/2025 15:29:25 04/04/20 25 04/04/2025 [UNIT Y] ANEUP LOIDY NIPT for detailed report, see pdf See PDF normal Not Available [facility] [address], [place], [address], 04/04/2025 15:29:25 04/11/20 25 04/11/2025 [UNIT Y] THOMAS WHITTINGTON Kathrine sickle cell disease/beta -thalassemia /hemoglobino pathies carrier screen NEGATI VE normal Not Available [facility] [address], [place], [address], 04/11/2025 12:08:11 04/11/20 25 04/11/2025 [UNIT Y] THOMAS WHITTINGTON Kathrine alpha-thalas semia carrier screen NEGATI VE normal Not Available [facility] [address], [place], [address], 04/11/2025 12:08:11 04/11/20 25 04/11/2025 [UNIT Y] THOMAS WHITTINGTON Kathrine cystic fibrosis carrier screen NEGATI VE normal Not Available [facility] [address], [place], [address], 04/11/2025 12:08:11 04/11/20 25 04/11/2025 [UNIT Y] THOMAS WHITTINGTON Kathrine spinal muscular atrophy carrier screen NEGATI VE 2 SMN1 copies , SNP not presen t normal Not Available [facility] [address], [place], [address], 04/11/2025 12:08:11 04/11/20 25 04/11/2025 [UNIT Y] THOMAS WHITTINGTON Kathrine for detailed report, see pdf See PDF normal Not Available [facility] [address], [place], [address], 04/11/2025 12:08:11 03/30/20 25 03/30/2025 CULTU RE: URINE result report SEE RESULT S BELOW Test: Cultu re: Urine Speci men Sourc e: Urine Voide d Speci men Type: Urine Speci men Date: 2024 1419 Resul t Date: 2024 2343 Resul t Statu s: Final resul t Abnor mal: No Resul ting Lab: [facility] [address] [facility] [address] Tel: CULTU RE ----- ----- ----- --- Organ ism(s ) consi stent with uroge nital or skin deja . Repea t cultu re if sympt oms indic ate. Not Available [facility] (Lab) [address] [facility], [place], [address], 04/01/2025 00:46:12 03/30/20 25 03/30/2025 CBC W/DIF F WBC 8.0 10'3/ uL 3.5-10 .5 Not Available [facility] (Lab) [address] [facility], [place], [address], 04/02/2025 16:43:21 03/30/20 25 03/30/2025 CBC W/DIF F RBC 4.19 10'6/ uL (based on docume nted legal sex) 3.80-5 .20 Not Available [facility] (Lab) [address] [facility], [place], [address], 04/02/2025 16:43:21 03/30/20 25 03/30/2025 CBC W/DIF F HGB 13.3 g/dL (based on docume nted legal sex) 11.6-1 5.4 Not Available [facility] (Lab) [address] [place], [address], 04/02/2025 16:43:21 03/30/20 25 03/30/2025 CBC W/DIF F HCT 39.6 % (based on docume nted legal sex) 34.0-4 5.0 Not Available [facility] (Lab) [address] [place], [address], 04/02/2025 16:43:21 03/30/20 25 03/30/2025 CBC W/DIF F MCV 94.5 fL 80.0-9 9.0 Not Available [facility] (Lab) [address] [place], [address], 04/02/2025 16:43:21 03/30/20 25 03/30/2025 CBC W/DIF F MCH 31.7 pg 27.0-3 4.0 Not Available [facility] (Lab) [address] [facility], [place], [address], 04/02/2025 16:43:21 03/30/20 25 03/30/2025 CBC W/DIF F MCHC 33.6 g/dL 32.0-3 5.5 Not Available [facility] (Lab) [address] [facility], [place], [address], 04/02/2025 16:43:21 03/30/20 25 03/30/2025 CBC W/DIF F RDW 12.7 % 11.0-1 5.0 Not Available [facility] (Lab) [address] [facility], [place], [address], 04/02/2025 16:43:21 03/30/20 25 03/30/2025 CBC W/DIF F plt 307 10'3/ uL 150-40 0 Not Available [facility] (Lab) [address] [facility], [place], [address], 04/02/2025 16:43:21 03/30/20 25 03/30/2025 CBC W/DIF F MPV 10.2 fL 8.8-12 .1 Not Available [facility] (Lab) [address] [facility], [place], [address], 04/02/2025 16:43:21 03/30/20 25 03/30/2025 CBC W/DIF F NRBC's 0.0 % 0.0 Not Available [facility] (Lab) [address] [facility], [place], [address], 04/02/2025 16:43:21 03/30/20 25 03/30/2025 CBC W/DIF F absolute NRBCs 0.0 10'3/ uL no refere nce range establ ished Not Available [facility] (Lab) [address] [facility], [place], [address], 04/02/2025 16:43:21 03/30/20 25 03/30/2025 CBC W/DIF F neutrophils 73.0 % 34.0-7 3.0 Not Available [facility] (Lab) [address] [facility], [place], [address], 04/02/2025 16:43:21 03/30/20 25 03/30/2025 CBC W/DIF F lymphocytes 20.3 % 15.0-5 0.0 Not Available [facility] (Lab) [address] [facility], [place], [address], 04/02/2025 16:43:21 03/30/20 25 03/30/2025 CBC W/DIF F monocytes 5.5 % 1.0-15 .0 Not Available [facility] (Lab) [address] [facility], [place], [address], 04/02/2025 16:43:21 03/30/20 25 03/30/2025 CBC W/DIF F eosinophils 0.6 % 0.0-8. 0 Not Available [facility] (Lab) [address] [place], [address], 04/02/2025 16:43:21 03/30/20 25 03/30/2025 CBC W/DIF F basophils 0.3 % 0.0-2. 0 Not Available [facility] (Lab) [address] [facility], [place], [address], 04/02/2025 16:43:21 03/30/20 25 03/30/2025 CBC W/DIF [...] separ ately if prese nt. Not Available [facility] (Lab) [address] [facility], [place], [address], 04/02/2025 16:43:21 03/30/20 25 03/30/2025 CBC W/DIF F absolute neutrophils 5.8 10'3/ uL 1.5-8. 0 Not Available [facility] (Lab) [address] [facility], [place], [address], 04/02/2025 16:43:21 03/30/20 25 03/30/2025 CBC W/DIF F absolute lymphocytes 1.6 10'3/ uL 1.0-4. 0 Not Available [facility] (Lab) [address] [facility], [place], [address], 04/02/2025 16:43:21 03/30/20 25 03/30/2025 CBC W/DIF F absolute monocytes 0.4 10'3/ uL 0.2-1. 0 Not Available [facility] (Lab) [address] [facility], [place], [address], 04/02/2025 16:43:21 03/30/20 25 03/30/2025 CBC W/DIF F absolute eosinophils 0.1 10'3/ uL 0.0-0. 6 Not Available [facility] (Lab) [address] [facility], [place], [address], 04/02/2025 16:43:21 03/30/20 25 03/30/2025 CBC W/DIF F absolute basophils 0.0 10'3/ uL 0.0-0. 3 Not Available [facility] (Lab) [address] [facility], [place], [address], 04/02/2025 16:43:21 03/30/20 25 03/30/2025 CBC W/DIF [...] spears book. nm.or g/gen derx Not Available [facility] (Lab) [address], [place], [address], 04/02/2025 16:43:21 03/30/2003/30/2025 HEPAT ITIS C ANTIB CLAUDETTE SCREE N, REFLE X TO CONFI RMATI ON hepatitis C antibody Non-re active non-re active Antib odies to HCV Not Detec luis, does not exclu de the possi bilit y of expos ure to HCV. : Not Hispa juni or Latin o Not Available [facility] (Lab) [address], [place], [address], 04/02/2025 16:43:21 03/30/2003/30/2025 HEPAT ITIS B SURFA [...] Hispa juni or Latin o Not Available [facility] (Lab) [address], [place], [address], 04/02/2025 16:43:22 03/30/2003/30/2025 HIV 1/2 ANTIG EN/AN TIBOD Y, REFLE X CONFI RMATI ON HIV antigen/anti body Nonrea ctive nonrea ctive : Not Hispa juni or Latin o HIV-1 antig en and HIV-1 /HIV- 2 antib odies were not detec luis. No labor atory evide nce of HIV infec tion. Not Available [facility] (Lab) [address], [place], [address], 04/02/2025 16:43:22 03/30/20 25 03/30/2025 TYPE/ RH/SC REEN ABO/Rh type A POS Not Available [facility] (Lab) [address] [facility] [address], [place], [address], 04/02/2025 16:43:23 03/30/20 25 03/30/2025 TYPE/ RH/SC REEN antibody screen NEG Not Available [facility] (Lab) [address] [facility] [address], [place], [address], 04/02/2025 16:43:23 03/30/20 25 03/30/2025 TYPE/ RH/SC REEN exp date 2024 23:59 Not Available [facility] (Lab) [address] [facility] [address], [place], [address], 04/02/2025 16:43:23 03/30/20 25 03/30/2025 RUBEL LA IGG ANTIB CLAUDETTE, QUANT rubella antibodies, IgG Reacti ve reacti ve Not Available [facility] (Lab) [address] [facility] [address], [place], [address], 04/02/2025 16:43:23 03/30/20 25 03/30/2025 RUBEL LA IGG ANTIB CLAUDETTE, QUANT rubella antibodies, IgG quant 20.6 IU/mL >=10 : Not Hispa juni or Latin o Non-r eacti ve (Non- Immun e) <10 IU/mL React luli (Immu ne) > or = 10 IU/mL Not Available [facility] (Lab) [address] [facility] [address], [place], [address], 04/02/2025 16:43:23 03/30/20 25 03/30/2025 HEMOG LOBIN [...] >8.0% Actio n sugge sted Not Available [facility] (Lab) [address] [facility] [address], [place], [address], 04/02/2025 16:43:23 03/30/20 25 03/30/2025 RPR SCREE N, REFLE X TITER /CONF IRMAT ION RPR qualitative Nonrea ctive nonrea ctive : Not Hispa juni or Latin o Not Available [facility] (Lab) [address] [facility] [address] [facility], [place], [address], 04/02/2025 16:43:24 03/30/20 25 03/30/2025 LEAD, BLOOD [...] Addre ss: [address] [place] [address] Direc tor: Carlie Rivera s Not Available [facility] (Lab) [address] [facility] [address], [place], [address], 04/02/2025 16:43:24 07/21/20 25 07/21/2025 HEMAT OCRIT (HCT) HCT 39.0 % (based on docume nted legal sex) 34.0-4 5.0 Not Available [facility] (Lab) [address] [facility] [address], [place], [address], 07/22/2025 13:19:40 07/21/20 25 07/21/2025 HEMOG LOBIN (HGB) HGB 13.1 g/dL (based on docume nted legal sex) 11.6-1 5.4 Not Available [facility] (Lab) [address] [facility] [address], [place], [address], 07/22/2025 13:19:40 07/21/20 25 07/21/2025 GTT - GESTA LAUREN L NELSY N, ACOG OB glucose, 1 hour screen 122 mg/dL 70-[address] [facility] (Lab) [address] [facility] [address], [place], [address], 07/22/2025 13:19:40 07/21/20 25 07/21/2025 HIV 1/2 ANTIG EN/AN TIBOD Y, REFLE X CONFI RMATI ON HIV antigen/anti body Nonrea ctive nonrea ctive HIV-1 antig en and HIV-1 /HIV- 2 antib odies were not detec luis. No labor atory evide nce of HIV infec tion. Not Available [facility] (Lab) [address] [facility], [place], [address], 07/22/2025 13:19:41 07/21/20 25 07/21/2025 RPR SCREE N, REFLE X TITER /CONF IRMAT ION RPR qualitative Nonrea ctive nonrea ctive Not Available [facility] (Lab) [address] [facility], [place], [address], 07/22/2025 13:19:41 03/30/20 25 03/30/2025 US, obste tric, nucha l trans lucen cy No observ ation record ed. [email or web address] [address], [place], [address], 03/31/2025 10:09:17 03/30/20 25 03/30/2025 US, obste tric, nucha l trans lucen cy No observ ation record ed. [email or web address] [place] [address], [place], [address], 03/30/2025 18:43:35 05/27/20 25 05/27/2025 US, obste tric, 2nd or 3rd trime ster No observ ation record ed. [facility] [address], [place], [address], 05/27/2025 13:35:00 05/27/20 25 05/27/2025 US, obste tric, 2nd or 3rd trime ster No observ ation record ed. [email or web address] [address], [place], [address], 05/27/2025 16:07:50 06/24/20 25 06/24/2025 US, obste tric, follo w-up No observ ation record ed. [facility] [address], [place], [address], 06/24/2025 17:08:43 06/24/20 25 06/24/2025 US, obste tric, follo w-up No observ ation record ed. [address], [place], [address], 06/24/2025 17:02:28 07/21/20 25 07/21/2025 US, obste tric, follo w-up No observ ation record ed. [facility] [address], [place], [address], 07/21/2025 15:22:55 07/21/20 25 07/21/2025 US, obste tric, follo w-up No observ ation record ed. [email or web address] [address], [place], [address], 07/22/2025 01:37:08 08/19/20 25 08/19/2025 US, obste tric, follo w-up No observ ation record ed. [email or web address] [place] [address], [place], [address], 08/19/2025 17:07:11 08/19/20 25 08/19/2025 US, obste tric, follo w-up No observ ation record ed. AGNIESZKA [place] [address], [place], [address], 08/22/2025 10:39:24 09/14/20 25 09/14/2025 US, obste tric, follo w-up No observ ation record ed. [email or web address] [place] [address], [place], [address], 09/14/2025 17:58:23 09/14/20 25 09/14/2025 US, obste tric, follo w-up No observ ation record ed. AGNIESZKA [place] [address], [place], [address], 09/18/2025 09:36:54 Result Notes None recorded. Problems Name Problem SNOMED Code Status Onset Date Resolution Date Notes Provider Name and Address Organization Details Recorded Time 19731420 Active 2024 Sindy levin, [facility] 5 12:54:51 Abnormal placenta affecting management of mother 60039454 Active 2024 serial growth US RICO VAUGHN MD [address], [place], [address], [facility] 5 11:08:27 Problem Notes None recorded. Procedures Surgical History Date Name Laterality Status Provider Name and Address Organization Details Recorded Time 04/16/202 5 Date of Last Pap Smear completed Sindy Sanchez [facility] 03/03/2025 16:18:09 9 Breast reduction completed Kelley Doyle [facility] 01/26/2025 14:37:39 Imaging Results None recorded. [...] Address Organization Details Last Updated DateTime 07/21/2025 88331.16047 g 96/62 mm[Hg] Mehreen Verdugo [facility] 07/21/2025 10:38:49 Social History Question Answer Notes LastModified by Organizat ion Details LastModified Time Tobacco Smoking Status Never Smoker Kelley Doyle [facility] 01/26/2025 14:37:11 Do You Have An Advance Directive? No [email or web address] Information n ot available 01/26/2025 How Many Years Have You Consumed Alcohol? 5 Information not available 01/26/2025 Are You Blind Or Do You Have Difficulty Seeing? No [email or web address] Information n ot available 01/26/2025 What Is Your Level Of Caffeine Consumption? Moderate [email or web address] Information not available 01/26/2025 In The 14 Days Before Symptom Onset, Have You Had Close Contact With A Laboratory-confirm ed COVID-19 While That Case Was Ill? No [email or web address] Information n ot available 01/26/2025 In The 14 Days Before Symptom Onset, Have You Had Close Contact With A Person Who Is Under Investigation For COVID-19 While That Person Was Ill? No [email or web address] Information not available 01/26/2025 Have You Been To An Area Known To Be High Risk For COVID-19? No [email or web address] Information not available 01/26/2025 Are You Deaf Or Do You Have Serious Difficulty Hearing? No [email or web address] Information not available 01/26/2025 What Type Of Diet Are You Following? REGULAR Information n ot available 01/26/2025 What Is The Highest Grade Or Level Of School You Have Completed Or The Highest Degree You Have Received? [id number] [email or web address] Information not available 01/26/2025 Are There Any Guns Present In Your Home? Yes [email or web address] Information not available 01/26/2025 Have You Ever Been Counseled For Unhealthy Alcohol Use? No Information not available 05/27/2025 Do You Use Protection During Sex? No [email or web address] Information not available 01/26/2025 Do You Use Your Seat Belt Or Car Seat Routinely? Yes [email or web address] Information not available 01/26/2025 Are You Sexually Active? Yes [email or web address] Information not available 01/26/2025 Do You Have Smoke And Carbon Monoxide Detectors In Your Home? Yes Information not available 01/26/2025 How Much Tobacco Do You Smoke? No [email or web address] Information not available 01/26/2025 Do You Use Sunscreen Routinely? Yes [email or web address] Information not available 01/26/2025 Has Tobacco Cessation Counseling Been Provided? No [email or web address] Information not available 05/27/2025 Have You Used IV Drugs? No [email or web address] Information not available 01/26/2025 Do You Have Difficulty Walking Or Climbing Stairs? No [email or web address] Information not available 01/26/2025 Sex: Unknown Functional Status Question Answer Note LastModified by Organizat ion Details LastModified Time Do you use any illicit or recreational drugs? No [email or web address] Information not available 01/26/2025 What is your level of alcohol consumption? Occasional [email or web address] Information not available 01/26/2025 Are you currently employed? Yes [email or web address] Information not available 01/26/2025 Are you able to walk independently without assistance or assistive devices? YESWOREST [email or web address] Information not available 01/26/2025 Are you able to care for yourself independently? 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 No [email or web address] Information not available 01/26/2025 What is your exercise level? Moderate [email or web address] Information not available 01/26/2025 Mental Status Question Answer Note LastModified by Organization D etails LastModified Time Do you feel stressed (tense, restless, nervous, or anxious, or unable to sleep at night)? RT2932-1 [email or web address] Information not available 01/26/2025 Family History Relationship Description Onset Age of this Age Resolved Age Notes LastModified by Organization Details LastModified Time Mother Malignant neoplasm of breast 41 Double mastec marium - stage 1 Not available 07/21/2025 09:35:24 Mother Malignant neoplasm of breast [email or web address] Not available 2024 10:54:50 Medical History Condition [...] ICD10 Code Diagnosis IMO Codes Diagnosis Note [id number] RICO VAUGHN MD [place] [address],[place] [address] 06/24/2025 15:49:13 06/24/2025 16:29:01 Abnormal placenta affecting management of mother 94102584 O43.193 Z3A.24 06478264 - serial growth [id number] RICO VAUGHN MD [place] [address],[place] [address] 06/24/2025 15:49:30 06/24/2025 16:57:41 Abnormal placenta affecting management of mother 47299218 O43.199 61259042 - serial growth US Gestation period, 24 weeks 412299453 Z3A.24 3405197 - continue PNV [id number] RICO VAUGHN MD [place] [address],[place] [address] 07/21/2025 09:35:16 07/21/2025 10:32:24 Anomaly of placenta 78470020 O43.103 Z3A.28 5797237 [id number] RICO VAUGHN MD [place] [address],[place] [address] 07/21/2025 09:35:34 07/21/2025 10:55:24 Abnormal placenta affecting management of mother 06455332 O43.199 52314554 - serial growth US Gestation period, 28 weeks 68294689 Z3A.28 0490141 Health Concerns Section Related Observation LastModified by Organization Detai ls LastModified Time None Recorded Concern Status LastModified by Organization Details LastModified Time None Recorded Payers Encounter Date Sequence Insurance Name Policy Number Policy Serrato Covered Member ID Serrato Member ID Guarantor Name 07/21/2025 1 [facility] [id number] Eric Tolbert [id number] 35 Renata Tolbert Notes Date Note Type Note Provider Name and Address Organization Details Recorded Time 07/21/2025 text/html Generic HPI TemplateReported by Patient RICO VAUGHN MD [address], [place], [address], [facility] 07/21/2025 10:55:17 OBGyn Episode Ob Episode Information Episode Created Date Number of Fetuses Patient Bloodtype Patient rh Status Prepregnancy Weight lbs Domestic Partner Domestic Partner Phone Father Name Local Company [employer] Status 03/30/20 25 1 A Positive 147 Eric OPEN Fetus Data First Name Last Name Admitted to NICU Weight (g) Sex Living Outcome Pediatric Complications Fetus ID Race Codes Race Delivery Type [id number] Problems Problem Notes Problem Name Start Date End Date Resolution Snomed Code Not e Abnormal placenta affecting management of mother 05/27/2025 [id number] serial growth U Enio Calculation Initial Enio [...] Date Ultra Sound Latest Days Gestation 0 [email or web address] 03/30/2025 10/12/20 25 0 Pre- Flowsheet Flowsheet Date 03/30/2025 Suresh Score Blood Edema Fundus Height Fundus Units Glucose Ketones Leukocytes Nitrite Labor Signs Protein Cervic Dilation Cervic Effacement Cervic Station Type Weight in lbs Pre/Post Dialysis Refused Weight 154.13066656937 BP Diastolic BP Location Tested BP Systolic BP Type 74 L arm 107 sitting Fetus Heart Rate Present A Present Fetus Movement A No Comments Patient presents to [facility] care. Hx of uncomplicated . otherwise uncomplicated. No nausea or cramping. NT/NB wnl today, desires NIPT. Will draw today with new OB labs. RTC 4 weeks for routine care. Flowsheet Date 04/27/2025 Suresh Score Blood Edema Fundus Height Fundus Units Glucose Ketones Leukocytes Nitrite Labor Signs Protein Cervic Dilation Cervic Effacement Cervic Station Type Weight in lbs Pre/Post Dialysis Refused Weight 160.748266418668 BP Diastolic BP Location Tested BP Systolic [...] Type Weight in lbs Pre/Post Dialysis Refused 165.085037575856 BP Diastolic BP Location Tested BP Systolic [...] Type Weight in lbs Pre/Post Dialysis Refused 174.59844402451 BP Diastolic BP Location Tested BP Systolic [...] Type Weight in lbs Pre/Post Dialysis Refused 182.476991935618 BP Diastolic BP Location Tested BP Systolic [...] Type Weight in lbs Pre/Post Dialysis Refused 186.300673938219 BP Diastolic BP Location Tested BP Systolic [...] Weight in lbs Pre/Post Dialysis Refused Weight 187.242828115624 BP Diastolic BP Location Tested BP Systolic [...] Weight in lbs Pre/Post Dialysis Refused Weight 190.166968495370 BP Diastolic BP Location Tested BP Systolic [...] Type Weight in lbs Pre/Post Dialysis Refused 194.473543349334 BP Diastolic BP Location Tested BP Systolic [...] Weight in lbs Pre/Post Dialysis Refused Weight 196.684452267608 BP Diastolic BP Location Tested BP Systolic [...] Type Weight in lbs Pre/Post Dialysis Refused 196.930288218612 BP Diastolic BP Location Tested BP Systolic [...]
[2025-10-02] MEDS: LACTATED RINGERS 1,000 ML 125 ML IV CONT ×2 (06:38→07:58)
[2025-10-02 06:40] LABS: Hematocrit 41.1 % (37.0-47.0); Hemoglobin 14.6 g/dL (12.0-15.0); Immature Granulocyte Percent A 0.2 % (0-0.5); Lymphocytes Absolute Auto 1.63 K/mm3 (0.9-3.2); Mean Corpuscular HGB Conc 35.5 g/dl (32-36); Mean Corpuscular Hemoglobin 32.9 pg (26-34); Mean Corpuscular Volume 92.6 fl (80-100); Nucleated Red Blood Cells Absolute Auto 0.000 K/mm3 (0.0-0.012); Nucleated Red Blood Cells Perc 0.0 % (0.0-0.2); Platelet Count Result 202 k/mm3 (150-375); Red Blood Count 4.44 M/mm3 (4.2-5.4); White Blood Count 12.1 K/mm3 (4.5-10.0)
[2025-10-02 07:29] LABS: Syphilis IgG/IgM Antibody Non-Reactive (Nonreactive)
--- NOTE | 2025-10-02 07:46 | P.PNAN_ITS ---
Anes - Eval Pre Procedure Procedure: labor pain management Date/Time: 10/02/25 07:46 Surgeon: Princess Barger Preop Diagnosis: pain during labor Pre Op Diagnosis: Contractions Patient Data Age: 30 Gender: F Height: 1.65 m Weight: 87 kg Last Vital Signs Temp 97.7 F 10/02/25 06:00 Pulse 71 10/02/25 07:44 Resp 18 10/02/25 06:00 BP 75/48 L 10/02/25 07:44 Pulse Ox 99 10/02/25 07:40 Allergies Allergy/AdvReac Type Severity Reaction Status Date / Time No Known Allergies Allergy Verified 09/16/25 12:31 Home Medications ?Medication ?Instructions ?Recorded ?Confirmed ?Type vit no.95-ferrous 1 tablet PO DAILY 09/16/25 09/16/25 History fumarate 28 mg-folic acid 800 mcg tablet () Laboratory Tests 10/02/25 06:36 WBC 12.1 H K/mm3 (4.5-10.0) RBC 4.44 M/mm3 (4.2-5.4) Hgb 14.6 g/dL (12.0-15.0) Hct 41.1 % (37.0-47.0) MCV 92.6 fl (80-100) MCH 32.9 pg (26-34) MCHC 35.5 g/dl (32-36) RDW 12.2 % (11.5-14.5) Plt Count 202 k/mm3 (150-375) MPV 10.5 H fl (7.4-10.4) Immature Gran % (Auto) 0.2 % (0-0.5) Neut % (Auto) 81.4 H % (45.5-73.1) Lymph % (Auto) 13.5 L % (18.3-44.2) [place] % (Auto) 4.4 % (2.6-8.5) Eos % (Auto) 0.3 % (0-4.4) Baso % (Auto) 0.2 % (0.2-1.2) Lymph # (Auto) 1.63 K/mm3 (0.9-3.2) [place] # (Auto) 0.5 K/mm3 (0.1-0.6) Eos # (Auto) 0.0 K/mm3 (0-0.3) Baso # (Auto) 0.0 K/mm3 (0.0-0.1) Abs Immat Gran (auto) 0.03 K/mm3 (0.00-0.031) Absolute Neuts (auto) 9.9 H K/mm3 (1.3-6.7) Absolute Nucleated RBC 0.000 K/mm3 (0.0-0.012) Nucleated RBC % 0.0 % (0.0-0.2) Syphilis IgG/IgM Ab Non-reactive (Nonreactive) Blood Type A Positive Antibody Screen Negative Patient hx anesthesia problems: none Family hx anesthesia problems: none Results Review: All pre-operative results and documents have been reviewed as part of the pre- operative evaluation. [facility] Past Medical History Medical History Overweight Family History Family History Mother Breast cancer Social History Social History Substance use: never Spiritual care concerns: No Exam Day of Procedure 10/02/25 07:46
--- NOTE | 2025-10-02 10:00 | LDADM ---
This patient, Renata Tolbert, was admitted to Labor/Delivery/Recovery 105 on 10/02/25 at 05:44. Plans for labor, pain management and were discussed with patient. Patient/family oriented to hospital policies and general routines including ID bracelet, bed and alarms, visiting hours, pain management, procedures, bathroom and other care routines, personal items, smoking policy, room service/diet and guest tray routines, infant security routines, and visiting hours. Patient/Family are encouraged to report perceived risks to care and to ask questions if they do not understand what they are told or what they should do. See [facility] for further documentation.
--- NOTE | 2025-10-02 11:02 | WPDHPUPDATE1 ---
History and Physical Update Update Date/Time: 10/02/25 11:02 Multiparous female at term presented in spontaneous labor. Has progressed 8 cm. For membranes ruptured. Clear fluid. Reassuring status. Epidural. History and Physical has been reviewed, including an updated exam of the patient. There are NO changes in the patient's condition. Risks, benefits, and alternatives have been discussed and questions answered. Patient agrees to proceed with procedure.
[2025-10-02] MEDS: OXYTOCIN 30 UNITS/NS 500 ML 30 UNITS/500 ML BAG 125 UNITS IV CONT ×2 (12:40→14:05)
--- NOTE | 2025-10-02 13:42 | PM.OBPRVD ---
OB - Vaginal Delivery Note Procedure Delivery date: 10/02/25 Delivery augmentation: Rupture of Membranes Delivery monitor: External FHT and External Uterine Route of delivery: Episiotomy description: None Laceration Description: Perineal - 1st Degree Delivery repair: vicryl Specimen: No Quantitative Blood Loss (ml): 100 Anesthesia type: Epidural Disposition: Floor Complications: No immediate complications
[2025-10-02] MEDS: WITCH HAZEL 40 PADS 1 PAD TOPICAL (15:41)
[2025-10-02] MEDS: BENZOCAINE 20% AER SPR (*SP) 56 GM CAN 1 SPRAY TOPICAL (15:42)
[2025-10-02] MEDS: IBUPROFEN 600 MG TABLET PO ×2 (16:00→22:30)
--- NOTE | 2025-10-02 16:57 | PC.NURSE ---
1625. Patient transferred to post room #278 via wheelchair, in crib with mom. Support person present. Oriented to unit, room, information board, rooming in, admission packet and security measures. Patient verbalizes understanding.
[2025-10-02] MEDS: DOCUSATE SODIUM 100 MG CAPSULE PO (18:02)
[2025-10-03 00:35] VITALS: BP 110/59; PULSE 57; RESP 14; TEMP 37; O2SAT 100
[2025-10-03] MEDS: ACETAMINOPHEN 325 MG TABLET 650 MG PO ×2 (00:35→08:21)
[2025-10-03] MEDS: IBUPROFEN 600 MG TABLET PO ×2 (04:30→08:21)
[2025-10-03 04:52] LABS: Hematocrit 38.5 % (37.0-47.0); Hemoglobin 13.5 g/dL (12.0-15.0)
[2025-10-03] MEDS: DOCUSATE SODIUM 100 MG CAPSULE PO (08:21)
[2025-10-03] MEDS: MULTIVIT/MIN/PREN/FOL AC/IRON TABLET 1 TAB PO (08:24)
--- NOTE | 2025-10-03 08:33 | P.PNOB_ITS ---
OB - PN: Subj Subjective Date/time seen: 10/03/25 08:33 Patient comments: no complaints, pain well controlled, incisional pain, tolerating diet and flatus present OB - PN: Obj Data Labs 10/03/25 04:31 Labs: Laboratory Results - last 24 hr 10/03/25 04:31 Hgb 13.5 Hct 38.5 OB - PN A/P Plan day: 1 Plan: routine care Comments: No problems, routine care Time Spent With Patient Time: Total time spent is greater than 50% in coordination of care (as documented) at patient's floor/unit and/or counseling patient: Exam 2 Const: General: comfortable, no acute distress and alert Resp: Effort & Inspection: normal respiratory effort Auscultation: no crackles, no rales and no rhonchi Cardio: Rate: regular rate Heart sounds: no click, no murmurs and no rubs GI: Inspection: non-distended GI Palp: No Tenderness to palpation present (GI) Auscultation: normal bowel sounds Other: Incision - CDI Extrem: General: normal to inspection, no pedal edema and no calf tenderness
--- NOTE | 2025-10-03 08:33 | PM.OBDSVD ---
DS: Admitting Diagnosis Discharge Date 10/03/2025 Admitting Diagnosis Term DS: Discharge Diagnosis Discharge Diagnosis (1) Term delivered: Code(s): O80 - Encounter for full-term uncomplicated delivery Status: Acute OB - DS: Summary OB Procedures : None OB Procedures Intrapartum: Spontaneous Vag Delivery OB Procedures: : None Peripartum Data Laceration Description: Perineal - 1st Degree Episiotomy description: None Time Spent with Patient Time attestation: Total time spent providing and/or coordinating discharge services: DS: Data Data Completed and Pending Labs on day of discharge: Labs from last 24 hours 10/03/25 04:31 Hgb 13.5 Hct 38.5 Discharge Plan Discharge Discharging Clinician: Luis Antonio Grimes Patient Disposition: Home Activity: pelvic rest Diet: regular Patient Instructions: Antibiotic Form Patient Language: Salvadorean Stand Alone Forms: General Discharge Information Follow-up/Referrals: Luis Antonio Grimes MD [Physician, HVAC MANAGER] Discharge Medications: Continued PNV no.95-ferrous fumarate-FA [] 28 mg iron- 800 mcg tablet 1 tablet PO DAILY Date of admission: 10/02/25 05:44 Primary Care Provider: UNKNOWN,DOCTOR Admitting Provider: Reuben Cardenas Attending physician on admission: Reuben Cardenas Condition: Stable
[2025-10-03 08:35] VITALS: BP 116/71; PULSE 59; RESP 16; TEMP 36.7; O2SAT 99
[2025-10-03 12:30] VITALS: BP 102/64; PULSE 56; RESP 16; TEMP 36.9; O2SAT 98
--- NOTE | 2025-10-03 15:23 | PC.NURSE ---
1138 Consulted with patient to assess needs related to . Discussed with mother her successes, concerns and any questions she has. We reviewed working with the infant, supporting breast, protecting her nipples with an optimal deep latch, good positioning, and good hand washing. Encouraged understanding the benefits of skin to skin, responding to feeding cues, frequencies of feeding 8-12 times in 24 hours (approximately 2-3 hours), duration of feedings, milk production, intake/output feeding sheet and signs of adequate intake encouraging swallowing at the breast. Reviewed positioning and alignment, supporting breast, off-centered (asymmetrical latch) and leading with the chin with big, open, wide gape. Infant latched optimally to the [left] breast in [cross cradle] position. Education given to the mother of how to visualize the suckling (with good rocking jaw motion) swallows (dropping of the lower jaw) and how to listen for drinking at the breast (the ka sound). The was [able] to maintain latch without discomfort to mother. Nipple care reviewed with optimal latch, good positioning and using clean hands when touching her breast. Resources used to facilitate learning were used from the [visual handouts/ tool/mom and baby guide]. Mother voiced understanding of the education shared, to call for assistance if the does not latch or if there is discomfort with . Reported to the Primary RN. 1400 Consulted with mother concerning needs and she shared her ability to independently latch optimally without pain. Mother is feeding appropriately for growth of infant and understands stimulating infant to eat if needed. Infant has had appropriate feedings in the last 24 hours meets the outcomes for weight, output, blood sugar and jaundice at this time. Reinforced understanding of milk production, transition of milk, signs of adequate intake, transition of stool, prevention/relief of engorgement, plugged ducts, mastitis, responsive watching for feeding cues, the different methods of stimulating to breastfeed 1-3 hours after the start of the last feeding, community resources, and when to call a provider using the resource of the feeding sheet along with the mom and baby guide. Mother voiced understanding of the information shared, is confident to continue effectively her at home, when to call for assistance, denies any additional assistance or education at this time. Reported to the Primary RN.
[2025-10-05 11:34] VITALS: BP 138/76; PULSE 71; RESP 18; TEMP 36.9; O2SAT 100
== END 2025-10-03 15:02 | disposition home or self-care (01) | DRG 807 ==
LOC: ANHOB2 10-03 08:35 → ANHLDR 10-05 08:13
PROVIDERS: Admitting Provider Obstetrics & Gynecology; Visit Provider Obstetrics & Gynecology
DX: O70.0 First degree perineal laceration during delivery (principal); Z37.0 Single live birth; Z3A.38 38 weeks gestation of pregnancy
CPT/HCPCS: 36415; 85014; 85018; 85025; 86593; 86850; 86900; 86901; A9270; J2590; J2795; J7120